=== PATIENT | female | born 1935 | race Caucasian/White ===

== ENCOUNTER 2018-05-13 00:48 | Inpatient (IN) | payer MEDICARE ==
[~2018-05-13] VITALS: Ht 160 cm; Wt 60.1 kg
[2018-05-13] MEDS ORDERED: METHYL SALICYLATE/MENTHOL TOPICAL OINTMENT 29GM TUBE. TP PRN (02:30)
[2018-05-13] MEDS ORDERED: MAGNESIUM HYDROXIDE 2,400 MG/30 ML ORAL.SUSP. PO PRN (02:30)
[2018-05-13] MEDS ORDERED: ACETAMINOPHEN 325 MG TABLET PO PRN (02:30)
[2018-05-13] MEDS ORDERED: MAG HYDROX/AL HYDROX/SIMETH 30 ML ORAL.SUSP PO PRN (02:30)
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
[2018-05-13 04:07] VITALS: BP 136/74
--- NOTE | 2018-05-13 05:03 | EKG ---
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
[2018-05-13 06:06] VITALS: BP 101/67
[2018-05-13 06:50] LABS: BASO % 1 % (0-3); EOS # 0.1 x10^3/uL (0.0-0.7); EOS % 2 % (0-3); HEMATOCRIT 40.7 % (36.0-47.0); HEMOGLOBIN 13.7 g/dL (12.0-15.5); LYMPH # 1.9 x10^3/uL (1.0-4.8); LYMPH % 36 % (24-48); MEAN CORPUSCULAR HEMOGLOBIN 30 pg (25-35); MEAN CORPUSCULAR HGB CONC 34 g/dL (31-37); MEAN CORPUSCULAR VOLUME 88 fL (79-100); MONO # 0.4 x10^3/uL (0.0-1.1); MONO % 7 % (0-9); NEUT # 2.8 x10^3uL (1.8-7.7); NEUT % 54 % (31-73); PLATELET COUNT 202 x10^3/uL (140-400); RED BLOOD COUNT 4.61 x10^6/uL (3.50-5.40); WHITE BLOOD COUNT 5.2 x10^3/uL (4.0-11.0)
[2018-05-13 07:10] LABS: ALBUMIN/GLOBULIN RATIO 0.9 (1.0-1.7); CALCIUM 9.3 mg/dL (8.5-10.1); CREATININE 0.8 mg/dL (0.6-1.0); GFR 68.5; MAGNESIUM 1.9 mg/dL (1.8-2.4); POTASSIUM 3.8 mmol/L (3.5-5.1); TOTAL BILIRUBIN 0.7 mg/dL (0.2-1.0); TOTAL PROTEIN 6.3 g/dL (6.4-8.2)
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
[2018-05-13] MEDS: LORazepam 2 MG/ML VIAL IM SCH ×2 (08:18→09:00)
[2018-05-13] MEDS: HALOPERIDOL LACT 5 MG/ML VIAL. IM SCH ×2 (08:19→09:00)
--- NOTE | 2018-05-13 09:20 | NUR ---
Behavior Intervention Response and Plan: BIRP Note: Behavior: Assumed Care of patient, patient located in Hallway at shift change. Patient exhibited the following behavior Compulsive, Demanding, Combative. Brief assessment on rounds of vital signs, medication needs, lab studies, and pain. Treatment plan problems 1 & 2. Intervention: Patient assessed and the following interventions initiated safety checks 15 Minute Checks Cognitive Assessment , Head to toe Assessment , Medications. Response: After interactions and interventions patient responded in the following manner, Calm , Compulsive ,Drowsy. Continue to assess behaviors and condition will continue to monitor throughout the shift as needed. Patient educated on ADL's, and hand hygiene. Plan: Continue to monitor Master Treatment Plan for patient's progress toward short term goals of Decreased Agitation, Decreased Aggression, custodial goals to return to previous living setting vs placement. Continue to assess patient for changes in above assessment. Monitor for medication needs, pain, and safety concerns. Hourly rounding performed to ensure safe environment.
[2018-05-13 13:22] LABS: THYROID STIM HORMONE (TSH) 1.724 uIU/mL (0.358-3.740)
--- NOTE | 2018-05-13 13:37 | RAD ---
EXAM: Head CT without contrast. HISTORY: Altered mental status. TECHNIQUE: Computed tomographic images of the head were obtained without contrast. *One or more of the following individualized dose reduction techniques were utilized for this examination: 1. Automated exposure control. 2. Adjustment of the mA and/or kV according to patient size. 3. Use of iterative reconstruction technique. COMPARISON: None. FINDINGS: There is no acute or subacute extra-axial or intraparenchymal hemorrhage. There is no mass effect or midline shift. There is no hydrocephalus. There are areas of decreased attenuation within the cerebral white matter, nonspecific and likely related to chronic small vessel disease. There is cerebral atrophy. The visualized portions of the orbits, paranasal sinuses and mastoid air cells are unremarkable. No suspicious calvarial lesion is seen. IMPRESSION: 1. No acute intracranial finding. Note is made that MRI is more sensitive for acute infarction. 2. Decreased attenuation within the cerebral white matter, likely due to chronic small vessel disease. 3. Cerebral volume loss. Electronically signed by: Rolanda Burgos MD (05/13/2018 1:33 PM) [id number]
[2018-05-13 16:12] VITALS: BP 103/65
[2018-05-13] MEDS ORDERED: CHOLECALCIFEROL (VITAMIN D3) 50,000 UNIT CAPSULE PO SCH (18:30)
[2018-05-13] MEDS: CYANOCOBALAMIN (VITAMIN B-12) 1,000 MCG/ML VIAL IM SCH (18:39)
--- NOTE | 2018-05-13 19:00 | NUR ---
WEEKLY NOTE: Pt was extremely combative when admitted on the unit. Pt has received IM injections and has calmed afterwards. Pt has been on the unit before. SW will complete psychosocial assessment and contact the family. It was noted that pt family has found a place in [facility] in [place] for pt do discharge to once stable. SW will confirm this report.
[2018-05-13 19:11] LABS: THYROXINE 6.6 ug/dL (4.5-12.0)
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
[2018-05-13 21:12] LABS: HEMOGLOBIN A1C 5.4 % (4.8-5.6)
--- NOTE | 2018-05-13 23:40 | PDOC ---
Exam Note: Edgar Note: Please also refer to the separate dictated note~for this date of service dictated separately.~Patient seen individually. Discussed the patient with Nursing staff reviewed the chart.~Reviewed interim history and current functioning. Reviewed vital signs,~Labs/ Radiology~and current medications noted below. Continue current treatment with the changes noted in the dictated addendum note Assessment: Vital Signs: Vital Signs Date Time Temp Pulse Resp B/P (MAP) Pulse Ox O2 Delivery O2 Flow Rate FiO2 05/13/18 16:12 98.1 56 18 103/65 (78) 94 05/13/18 06:06 Room Air I&O Intake and Output 05/13/18 07:00 # Voids 1 Labs: Laboratory Tests Test 05/13/18 06:32 White Blood Count 5.2 x10^3/uL (4.0-11.0) Red Blood Count 4.61 x10^6/uL (3.50-5.40) Hemoglobin 13.7 g/dL (12.0-15.5) Hematocrit 40.7 % (36.0-47.0) Mean Corpuscular Volume 88 fL (79-100) Mean Corpuscular Hemoglobin 30 pg (25-35) Mean Corpuscular Hemoglobin Concent 34 g/dL (31-37) Red Cell Distribution Width 13.0 % (11.5-14.5) Platelet Count 202 x10^3/uL (140-400) Neutrophils (%) (Auto) 54 % (31-73) Lymphocytes (%) (Auto) 36 % (24-48) Monocytes (%) (Auto) 7 % (0-9) Eosinophils (%) (Auto) 2 % (0-3) Basophils (%) (Auto) 1 % (0-3) Neutrophils # (Auto) 2.8 x10^3uL (1.8-7.7) Lymphocytes # (Auto) 1.9 x10^3/uL (1.0-4.8) Monocytes # (Auto) 0.4 x10^3/uL (0.0-1.1) Eosinophils # (Auto) 0.1 x10^3/uL (0.0-0.7) Basophils # (Auto) 0.0 x10^3/uL (0.0-0.2) Sodium Level 140 mmol/L (136-145) Potassium Level 3.8 mmol/L (3.5-5.1) Chloride Level 107 mmol/L (98-107) Carbon Dioxide Level 25 mmol/L (21-32) Anion Gap 8 (6-14) Blood Urea Nitrogen 24 mg/dL (7-20) H Creatinine 0.8 mg/dL (0.6-1.0) Estimated GFR (Cockcroft-Gault) 68.5 BUN/Creatinine Ratio 30 (6-20) H Glucose Level 93 mg/dL (70-99) Hemoglobin A1c 5.4 % (4.8-5.6) Calcium Level 9.3 mg/dL (8.5-10.1) Magnesium Level 1.9 mg/dL (1.8-2.4) Iron Level 71 ug/dL (50-170) Total Iron Binding Capacity 284 ug/dL (250-450) Iron Saturation 25 % (15-34) Total Bilirubin 0.7 mg/dL (0.2-1.0) Aspartate Amino Transferase (AST) 13 U/L (15-37) L Alanine Aminotransferase (ALT) 15 U/L (14-59) Alkaline Phosphatase 89 U/L (46-116) Total Protein 6.3 g/dL (6.4-8.2) L Albumin 3.0 g/dL (3.4-5.0) L Albumin/Globulin Ratio 0.9 (1.0-1.7) L Triglycerides Level 91 mg/dL (0-150) Cholesterol Level 198 mg/dL (0-200) LDL Cholesterol, Calculated 135 mg/dL (0-100) H VLDL Cholesterol, Calculated 18 mg/dL (0-40) Non-HDL Cholesterol Calculated 153 mg/dL (0-129) H HDL Cholesterol 45 mg/dL (40-60) Cholesterol/HDL Ratio 4.0 Vitamin B12 Level 149 pg/mL (247-911) L 25-Hydroxy Vitamin D Total 11.8 ng/mL (30-100) L Thyroid Stimulating Hormone (TSH) 1.724 uIU/mL (0.358-3.740) Thyroxine (T4) 6.6 ug/dL (4.5-12.0) Total Triiodothyronine (TT3) 94 ng/dL (71-180) Treponema pallidum Antibody Nonreactive (Nonreactive) Current Medications: Meds: Current Medications Acetaminophen (Tylenol) 650 mg PRN Q6HRS PRN PO PAIN / TEMP; Start 05/13/18 at 02:30 Multi-Ingredient Ointment (Analgesic [place]) 1 vanesa PRN QID PRN TP MUSCLE PAIN; Start 05/13/18 at 02:30 Al Hydroxide/Mg Hydroxide (Mylanta Plus Xs) 15 ml PRN AFTMEALHC PRN PO DYSPEPSIA; Start 05/13/18 at 02:30 Magnesium Hydroxide (Milk Of Magnesia) 2,400 mg PRN QHS PRN PO CONSTIPATION; Start 05/13/18 at 02:30 Lorazepam (Ativan) 0.25 mg PRN Q6HRS PRN PO ANXIETY / AGITATION; Start at 02:45 Lorazepam (Ativan) 1 mg DAILY IM Last administered on 05/13/18at 08:18; Start 05/13/18 at 08:15 Haloperidol Lactate (Haldol) 5 mg DAILY IM Last administered on 05/13/18at 08: 19; Start 05/13/18 at 08:15 Cyanocobalamin (Vitamin B-12) 1,000 mcg DAILY IM Last administered on at 18:39; Start 05/13/18 at 18:00; Stop 05/17/18 at 17:59 Cyanocobalamin (Vitamin B-12) 1,000 mcg WEEKLY IM ; Start 05/20/18 at 09:00 Vitamin D (Vitamin D3) 50,000 unit WEEKLY PO ; Start 05/13/18 at 18:30; Stop 05/13/18 at 18:39; Status DC Vitamin D (Vitamin D3) 50,000 unit WEEKLY PO ; Start 05/14/18 at 09:00 I have reviewed the current psychotropics carefully including drug interactions. Risk benefit ratio favors no change other than as noted in my dictated progress note. Diagnosis: Problems: (1) Anxiety disorder (2) Impulse control disorder (3) Major neurocognitive disorder, due to vascular disease, with behavioral disturbance, mild (4) Mixed Alzheimer's and vascular dementia with behavior disturbances KHRIS RUFF MD May 13, 2018 23:40
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
[2018-05-14 06:25] VITALS: BP 104/72
[2018-05-14] MEDS: CHOLECALCIFEROL (VITAMIN D3) 50,000 UNIT CAPSULE PO SCH (08:13)
--- NOTE | 2018-05-14 08:30 | NUR ---
Behavior Intervention Response and Plan: BIRP Note: Behavior: Assumed Care of patient, patient located in at shift change. Patient exhibited the following behavior Wandering, Disorganized, Non Compliant with Meds. Brief assessment on rounds of vital signs, medication needs, lab studies, and pain. Treatment plan problems 1 & 2. Intervention: Patient assessed and the following interventions initiated safety checks 15 Minute Checks Cognitive Assessment , Head to toe Assessment , Medications. Response: After interactions and interventions patient responded in the following manner, Calm , Wandering ,Resistive. Continue to assess behaviors and condition will continue to monitor throughout the shift as needed. Patient educated on ADL's, and hand hygiene. Plan: Continue to monitor Master Treatment Plan for patient's progress toward short term goals of Medication Compliance, No harm To self/ others, assistant terminal manager goals to return to previous living setting vs placement. Continue to assess patient for changes in above assessment. Monitor for medication needs, pain, and safety concerns. Hourly rounding performed to ensure safe environment.
[2018-05-14] MEDS: HALOPERIDOL LACT 5 MG/ML VIAL. IM SCH (10:58)
[2018-05-14] MEDS: CYANOCOBALAMIN (VITAMIN B-12) 1,000 MCG/ML VIAL IM SCH (10:58)
[2018-05-14] MEDS: LORazepam 2 MG/ML VIAL IM SCH (11:13)
--- NOTE | 2018-05-14 11:15 | NUR ---
Patient was cooperative with IM medications but continued to refuse oral medications. Will continue to monitor.
--- NOTE | 2018-05-14 14:52 | NUR ---
Psychosocial Assessment Admit Date: 05/13/18 Psychiatrist: None in the community Medical Physician: Dr. Morgan in the community Assessment Informants: Jessica Rogers (daughter) Sex of Patient: Female Race: White Age: 82 Living Situation: [facility] since 07/2017 Plans For Return: Family would prefer Sue move to [facility] facility in [facility] and are in the process of inquiring there Legal status: Voluntary admission, POA in place Name of Legally Responsible Person: Jessica Sanford Contacts: Name: Jessica Sanford, daughter, Family Background and Relationships Marital status: . Spouse Warren Sanford, 20+ years ago in his sleep. Sue found him. They were for 45 years. Warren served in the . Marital (Cohabitation)/Sexual Orientation Issues: Heterosexual Family support And their Participation in therapy: Family is involved and will participate in treatment team on 05/10/18. 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 Her children are Ifrah, Jessica, Titus, and Eloy. She has six grandchildren, 7 greats, and 2 great greats. History of Legal Difficulties: None reported. Preferred Leisure Activities: Sue has enjoyed watching movies, bowling on a league with her spouse, sabianism involvement, and spending sil[place]ira in [place] for 18 years. Spiritual/Jehovah'S Witness Involvement: Religion Science, high importance, was raised in the sabianism and continues to practice. Sue reports she reads the Bible and the health and science book. She attends sabianism on Wednesdays and Sundays. Service: Sue was not in the service. Her spouse was in the and they spent some time in [place] during his years of service. Financial Situation: Adequate funds for the next 30 days. Resources: Receives social security and has assets to cover the cost of her care. Financial Problems/Needs: none reported. Constitution Party Responsible for Handling Patient's Finances: Jessica Mayeran Historical Data Childhood History: Sue was born and raised in [facility]. She was an only child. She recalls being a "Daddy's girl" and felt unwanted by her mother. Her father worked as a builder. No substance abuse or mental illness reported in the family. Cultural/Spiritual History Factors that may impact treatment: Religion Science emilia History of Sexual/Physical Abuse of Neglect: None reported. History of Substance Abuse: None in past 12 months, none reported. Psychiatric History: Sue saw a grief counselor after her spouse . Otherwise, no previous in patient treatments. Presenting Problems Presenting Problems/Criteria for admission: Agitation, pacing, restless, aggressive towards others, threw her purse at the wall, threw herself on the ground, and expressions of wanting to . Patient's Current Intrinsic Strengths: Supportive family, verbal, adequate finances for care needs. Patient's Current Intrinsic Weaknesses: Memory impairment, behavioral issues Social Work Treatment Plan Identified Problems 1.) Aggression 2.) Agitation 3.) Expressions of wanting to Goals for Treatment: Decreased aggressiveness, agitation, and depression. Stabilization of mood. Family Goals for Treatment: As above Social work Intervention: Group therapy per week:2-5x To increase positive, calm feelings. To Increase Socialization. To Teach and Practice Effective coping skills in a social setting. Individual Therapy Per Week: As needed. Using validation to increase calm and positive feelings. To encourage self-expression. To work on grief/loss and adjustment issues. To teach and practice effective coping skills. To educate about diagnoses, team recommendations etc.. Family Support and Education: As needed. Support family grief/adjustment process. Educate about Psychiatric/Behavioral problems and treatment recommendations. Patient's Educational Needs to be addressed in Treatment: Diagnosis, Treatment plan, Medication and Discharge Planning. Initial Discharge Plan: To return to [facility] or if arrangements can be made in time to move to [facility]. Plan for communication of Psychiatric Follow up and Continuing Care Instructions to family and Care Givers: Written and verbal communication. Conclusions and Recommendations: 1:1 with Sue to support related to recent admit and to obtain social history. Sue was confused to time and place. However, she was able to recall many events from her past sharing her social history. Family confirmed the information that Sue shared as accurate. Sue's daughter Jessica will be involved by phone in treatment team on 05/20/18. Addendum: 05/18/18 at 1535 by KAYLYN VELEZ HEBERT reviewed and approves assessment.
[2018-05-14 15:56] VITALS: BP 132/79
[2018-05-14 17:02] LABS: BACTERIA,URINE 0 /HPF (0-FEW); BILIRUBIN,URINE NEG (NEG); CLARITY,URINE CLEAR; COLOR,URINE YELLOW; GLUCOSE,URINE NEG (NEG); NITRITE,URINE NEG (NEG); RBC,URINE 0 /HPF (0-2); SQUAMOUS EPITHELIAL CELL,UR FEW /LPF; UROBILINOGEN,URINE 0.2 mg/dL (0.2 mg/dL)
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
--- NOTE | 2018-05-14 22:15 | NUR ---
Behavior Intervention Response and Plan: BIRP Note: Behavior: Assumed Care of patient, patient located in Day Room at shift change. Patient exhibited the following behavior Calm, Cooperative, Compliant. Brief assessment on rounds of vital signs, medication needs, lab studies, and pain. Treatment plan problems . Intervention: Patient assessed and the following interventions initiated safety checks 15 Minute Checks Personal Alarm in place , Cognitive Assessment , Head to toe Assessment. Response: After interactions and interventions patient responded in the following manner, Calm , Compliant ,Cooperative. Continue to assess behaviors and condition will continue to monitor throughout the shift as needed. Patient educated on ADL's, and hand hygiene. Plan: Continue to monitor Master Treatment Plan for patient's progress toward short term goals of Decreased Agitation, Medication Compliance, intermediate frame tender goals to return to previous living setting vs placement. Continue to assess patient for changes in above assessment. Monitor for medication needs, pain, and safety concerns. Hourly rounding performed to ensure safe environment.
--- NOTE | 2018-05-14 23:23 | PDOC ---
Exam Note: Edgar Note: Please also refer to the separate dictated note~for this date of service dictated separately.~Patient seen individually. Discussed the patient with Nursing staff reviewed the chart.~Reviewed interim history and current functioning. Reviewed vital signs,~Labs/ Radiology~and current medications noted below. Continue current treatment with the changes noted in the dictated addendum note Assessment: Vital Signs: Vital Signs Date Time Temp Pulse Resp B/P (MAP) Pulse Ox O2 Delivery O2 Flow Rate FiO2 05/14/18 15:56 97.9 62 16 132/79 (96) 96 Room Air I&O Intake and Output 05/14/18 07:00 Intake Total 720 ml Balance 720 ml Intake Oral 720 ml Labs: Laboratory Tests Test 05/14/18 16:42 Urine Collection Type Unknown Urine Color Yellow Urine Clarity Clear Urine pH 5.0 Urine Specific [place] 1.025 Urine Protein Neg (NEG-TRACE) Urine Glucose (UA) Neg mg/dL (NEG) Urine Ketones (Stick) Neg mg/dL (NEG) Urine Blood Neg (NEG) Urine Nitrite Neg (NEG) Urine Bilirubin Neg (NEG) Urine Urobilinogen Dipstick 0.2 mg/dL (0.2 mg/dL) Urine Leukocyte Esterase Trace (NEG) Urine RBC 0 /HPF (0-2) Urine WBC 5-10 /HPF (0-4) Urine Squamous Epithelial Cells Few /LPF Urine Bacteria 0 /HPF (0-FEW) Urine Mucus Slight /LPF Current Medications: Meds: Current Medications Acetaminophen (Tylenol) 650 mg PRN Q6HRS PRN PO PAIN / TEMP; Start 05/13/18 at 02:30 Multi-Ingredient Ointment (Analgesic [place]) 1 vanesa PRN QID PRN TP MUSCLE PAIN; Start 05/13/18 at 02:30 Al Hydroxide/Mg Hydroxide (Mylanta Plus Xs) 15 ml PRN AFTMEALHC PRN PO DYSPEPSIA; Start 05/13/18 at 02:30 Magnesium Hydroxide (Milk Of Magnesia) 2,400 mg PRN QHS PRN PO CONSTIPATION; Start 05/13/18 at 02:30 Lorazepam (Ativan) 0.25 mg PRN Q6HRS PRN PO ANXIETY / AGITATION; Start at 02:45 Lorazepam (Ativan) 1 mg DAILY IM Last administered on 05/14/18at 11:13; Start 05/13/18 at 08:15 Haloperidol Lactate (Haldol) 5 mg DAILY IM Last administered on 05/14/18at 10: 58; Start 05/13/18 at 08:15 Cyanocobalamin (Vitamin B-12) 1,000 mcg DAILY IM Last administered on at 10:58; Start 05/13/18 at 18:00; Stop 05/17/18 at 17:59 Cyanocobalamin (Vitamin B-12) 1,000 mcg WEEKLY IM ; Start 05/20/18 at 09:00 Vitamin D (Vitamin D3) 50,000 unit WEEKLY PO ; Start 05/13/18 at 18:30; Stop 05/13/18 at 18:39; Status DC Vitamin D (Vitamin D3) 50,000 unit WEEKLY PO Last administered on 05/14/18at 08 :13; Start 05/14/18 at 09:00 Quetiapine Fumarate (SEROquel) 25 mg DAILY PO ; Start 05/15/18 at 09:00 I have reviewed the current psychotropics carefully including drug interactions. Risk benefit ratio favors no change other than as noted in my dictated progress note. 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
[2018-05-15 06:35] VITALS: BP 137/76
--- NOTE | 2018-05-15 08:40 | NUR ---
Behavior Intervention Response and Plan: BIRP Note: Behavior: Assumed Care of patient, patient located in at shift change. Patient exhibited the following behavior Wandering, Disorganized, Non Compliant with Meds. Brief assessment on rounds of vital signs, medication needs, lab studies, and pain. Treatment plan problems 1 & 2. Intervention: Patient assessed and the following interventions initiated safety checks 15 Minute Checks Cognitive Assessment , Head to toe Assessment , Medications. Response: After interactions and interventions patient responded in the following manner, Calm , Wandering ,Resistive. Continue to assess behaviors and condition will continue to monitor throughout the shift as needed. Patient educated on ADL's, and hand hygiene. 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 Continue to assess patient for changes in above assessment. Monitor for medication needs, pain, and safety concerns. Hourly rounding performed to ensure safe environment.
[2018-05-15] MEDS: QUEtiapine 25 MG TABLET. PO SCH (12:04)
[2018-05-15] MEDS: HALOPERIDOL LACT 5 MG/ML VIAL. IM SCH (13:52)
[2018-05-15] MEDS: CYANOCOBALAMIN (VITAMIN B-12) 1,000 MCG/ML VIAL IM SCH (13:52)
[2018-05-15] MEDS: LORazepam 2 MG/ML VIAL IM SCH (13:53)
[2018-05-15 16:05] VITALS: BP 157/86
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
--- NOTE | 2018-05-16 01:13 | NUR ---
Pt was resting in her bed at shift change. Pt does not receive any HS medications and was compliant with her assessment. Pt is continent of urine and woke up in the middle of the night to use the toilet. Pt was very pleasant, even laughed with this RN during that time. No adverse behaviors noted on this shift at this time.
[2018-05-16 06:25] VITALS: BP 124/79
[2018-05-16] MEDS: CYANOCOBALAMIN (VITAMIN B-12) 1,000 MCG/ML VIAL IM SCH (09:00)
[2018-05-16] MEDS: QUEtiapine 25 MG TABLET. PO SCH (09:17)
--- NOTE | 2018-05-16 10:42 | NUR ---
Pt is calm, cooperative, compliant and confused. No hallucinations or delusions. She wanders, has had no agitation or aggression thus far. Medication crushed in chocolate ice cream.
[2018-05-16 16:39] VITALS: BP 114/65
--- NOTE | 2018-05-17 01:11 | NUR ---
Pt laying down in bed in her room at shift change. Pt confused, stating that she thought she was at home. Pt does not receive any HS medications. Pt has continued to stay in bed the rest of the evening.
[2018-05-17 06:19] VITALS: BP 118/69
[2018-05-17] MEDS: CYANOCOBALAMIN (VITAMIN B-12) 1,000 MCG/ML VIAL IM SCH (09:00)
[2018-05-17] MEDS: QUEtiapine 25 MG TABLET. PO SCH (09:23)
--- NOTE | 2018-05-17 09:48 | PN ---
DATE: 05/14/2018 PSYCHIATRIC PROGRESS NOTE This is a late entry for date of service 05/14/2018 and covers elements not covered in my initial note of 05/14/2018. SUBJECTIVE: I met with the patient in the morning. Per nursing report, the patient slept 6 hours previous night. At around 7:00 p.m. previous evening, she was agitated, confused, intermittently psychotic, but redirectable. She refused her vitamin D supplements. REVIEW OF SYSTEMS: No CV, , eye, ENT or pulmonary system symptoms on review. Reliability poor due to her dementia, but she was otherwise pleasant, smiling as I met with her. MENTAL STATUS EXAM: Oriented to herself. Insight, judgment, recent and remote memory, attention, concentration, fund of knowledge poor, consistent with her diagnoses. IMPRESSION: Major neurocognitive disorder, Alzheimer, vascular with delusion, depression, behavioral disturbance; anxiety disorder, unspecified; impulse control disorder, unspecified. PLAN: Start Seroquel 25 mg in the morning. Continue Haldol and Ativan IM daily, but as she responds to the Seroquel, we will stop the IMs. Dr. Delgado will resume care of the patient starting 05/15/2018. MAN Padmini RUFF MD DR: KATARZYNA/bibiana JOB#: [id number] / [id number]
--- NOTE | 2018-05-17 10:05 | NUR ---
ACTIVITY THERAPY ASSESSMENT Completed based on observation and interview. Pt. was agreeable to speak with YARD LABORER. She was confused about her roommate but was pleasant and able to be redirected to answer questions for assessment. She was able to quickly recall things she likes to do in her free time. She stated she likes to help people, walk, get involved with [employer] and healings at her [employer] every Thursday night. She struggled to recall the name of her pres[employer]ian quickly but with time was able to state it was [employer]. She was unable to explain exactly where she was and why she was here. She enjoyed talking one on one with [facility] and repeated a story about her dog, Hudson. She talked about having four children and a who has passed. She stated that when she is stressed/ anxious or overwhelmed, she will watch tv or nap. She stated she likes all sorts of music and used to play the piano. Pt. usually keeps to herself, walking the unit. Initial goal aimed to increase socialization and engagement: Pt. will participate in at least three individual or group sessions, moderately, before discharge. Addendum: 06/03/18 at 1137 by MARTINA NIXON ACT Goal changed 06/03/2018: Pt. will participate at least moderately in three groups per week
--- NOTE | 2018-05-17 11:58 | NUR ---
Pt is calm, cooperative, confused and wanders. She was med compliant with her medication crushed in chocolate ice cream. No agitation or aggression noted. No hallucinations or delusions noted.
[2018-05-17 16:31] VITALS: BP 135/82
[2018-05-17] MEDS ORDERED: traZODone 50 MG TABLET. PO PRN (18:00)
--- NOTE | 2018-05-17 20:00 | NUR ---
Behavior Intervention Response and Plan: BIRP Note: Behavior: Assumed Care of patient, patient located in Hallway at shift change. Patient exhibited the following behavior Restless, Disorganized, Resistive. Brief assessment on rounds of vital signs, medication needs, lab studies, and pain. Treatment plan problems . Intervention: Patient assessed and the following interventions initiated safety checks 15 Minute Checks Cognitive Assessment , Head to toe Assessment , Medications. Response: After interactions and interventions patient responded in the following manner, Wandering , Disorganized ,Resistive. Continue to assess behaviors and condition will continue to monitor throughout the shift as needed. Patient educated on ADL's, and hand hygiene. Plan: Continue to monitor Master Treatment Plan for patient's progress toward short term goals of Decreased Agitation, Medication Compliance, manager terminal goals to return to previous living setting vs placement. Continue to assess patient for changes in above assessment. Monitor for medication needs, pain, and safety concerns. Hourly rounding performed to ensure safe environment.
[2018-05-17] MEDS: traZODone 50 MG TABLET. PO SCH ×2 (20:27→21:00)
--- NOTE | 2018-05-17 23:23 | PDOC ---
Exam Note: Edgar Note: Please also refer to the separate dictated note~for this date of service dictated separately.~Patient seen individually. Discussed the patient with Nursing staff reviewed the chart.~Reviewed interim history and current functioning. Reviewed vital signs,~Labs/ Radiology~and current medications noted below. Continue current treatment with the changes noted in the dictated addendum note Assessment: Vital Signs: Vital Signs Date Time Temp Pulse Resp B/P (MAP) Pulse Ox O2 Delivery O2 Flow Rate FiO2 05/17/18 16:31 97.7 74 18 135/82 (99) 98 Room Air I&O Intake and Output 05/17/18 07:00 Intake Total 360 ml Balance 360 ml Intake Oral 360 ml # Voids 1 Current Medications: Meds: Current Medications Acetaminophen (Tylenol) 650 mg PRN Q6HRS PRN PO PAIN / TEMP; Start 05/13/18 at 02:30 Multi-Ingredient Ointment (Analgesic [place]) 1 vanesa PRN QID PRN TP MUSCLE PAIN; Start 05/13/18 at 02:30 Al Hydroxide/Mg Hydroxide (Mylanta Plus Xs) 15 ml PRN AFTMEALHC PRN PO DYSPEPSIA; Start 05/13/18 at 02:30 Magnesium Hydroxide (Milk Of Magnesia) 2,400 mg PRN QHS PRN PO CONSTIPATION; Start 05/13/18 at 02:30 Lorazepam (Ativan) 0.25 mg PRN Q6HRS PRN PO ANXIETY / AGITATION; Start at 02:45 Lorazepam (Ativan) 1 mg DAILY IM Last administered on 05/15/18at 13:53; Start 05/13/18 at 08:15 Haloperidol Lactate (Haldol) 5 mg DAILY IM Last administered on 05/15/18at 13: 52; Start 05/13/18 at 08:15 Cyanocobalamin (Vitamin B-12) 1,000 mcg DAILY IM Last administered on at 13:52; Start 05/13/18 at 18:00; Stop 05/17/18 at 17:59; Status DC Cyanocobalamin (Vitamin B-12) 1,000 mcg WEEKLY IM ; Start 05/20/18 at 09:00 Vitamin D (Vitamin D3) 50,000 unit WEEKLY PO ; Start 05/13/18 at 18:30; Stop 05/13/18 at 18:39; Status DC Vitamin D (Vitamin D3) 50,000 unit WEEKLY PO Last administered on 05/14/18at 08 :13; Start 05/14/18 at 09:00 Quetiapine Fumarate (SEROquel) 25 mg DAILY PO Last administered on 05/17/18at 09:23; Start 05/15/18 at 09:00 Trazodone HCl (Desyrel) 25 mg QHS PO Last administered on 05/17/18at 20:27; Start 05/17/18 at 21:00 Trazodone HCl (Desyrel) 25 mg PRN QHS PRN PO INSOMNIA; Start 05/17/18 at 18:00 I have reviewed the current psychotropics carefully including drug interactions. Risk benefit ratio favors no change other than as noted in my dictated progress note. 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
[2018-05-18 05:40] VITALS: BP 154/85
[2018-05-18] MEDS: QUEtiapine 25 MG TABLET. PO SCH (07:50)
--- NOTE | 2018-05-18 11:09 | NUR ---
Behavior Intervention Response and Plan: BIRP Note: Behavior: Assumed Care of patient, patient located in Dining Room at shift change. Patient exhibited the following behavior Wandering, Disorganized, Non Compliant with Meds. Brief assessment on rounds of vital signs, medication needs, lab studies, and pain. Treatment plan problems 1 & 2. Intervention: Patient assessed and the following interventions initiated safety checks 15 Minute Checks Cognitive Assessment , Head to toe Assessment , Medications. Response: After interactions and interventions patient responded in the following manner, Calm , Wandering ,Resistive. Continue to assess behaviors and condition will continue to monitor throughout the shift as needed. Patient educated on ADL's, and hand hygiene. 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 Continue to assess patient for changes in above assessment. Monitor for medication needs, pain, and safety concerns. Hourly rounding performed to ensure safe environment.
--- NOTE | 2018-05-18 13:55 | NUR ---
SW was told by one of the nursing staff that pt had been talking about speaking to a tree killer. 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 SW inquired about this with the Pastoral office and they will be able to meet with pt tomorrow.
[2018-05-18] MEDS: HALOPERIDOL LACT 5 MG/ML VIAL. IM SCH (15:07)
[2018-05-18] MEDS: LORazepam 2 MG/ML VIAL IM SCH (15:11)
[2018-05-18 16:11] VITALS: BP 137/80
[2018-05-18] MEDS ORDERED: MIRT15TA PO (17:20)
[2018-05-18] MEDS: traZODone 50 MG TABLET. PO SCH (19:24)
--- NOTE | 2018-05-19 01:07 | NUR ---
Pt wandering and anxious this evening, repeatedly asking the same questions to staff. Restless and intrusive. Refused whole HS medication. Hypoactive bowel sounds. HS Trazodone crushed and mixed with MOM. After much coaxing, pt consumed MOM.
[2018-05-19 06:08] VITALS: BP 140/60
[2018-05-19] MEDS: QUEtiapine 25 MG TABLET. PO SCH (08:13)
--- NOTE | 2018-05-19 11:38 | NUR ---
Pt has been calm and compliant for this shift. Pt took all of medications this morning and came to the dining room for breakfast. Pt ate most of breakfast. Pt has been wandering the halls and sleeping in other pt's beds. Currently, the pt is in the hallway talking to the financial accounting analyst.
--- NOTE | 2018-05-19 15:17 | NUR ---
1:1 with Sue this afternoon to socialize. Sue was alert and appeared to enjoy reminiscing about her childhood, her childhood friend [place], and memories of her father. At times, she would make reference to her parents being alive and talk as if she were still a child. Sue was calm and without s/s of distress or agitation. Walked with Sue to the day room in hopes that she would participate in afternoon recreational therapy group activity.
[2018-05-19 16:13] VITALS: BP 149/79
--- NOTE | 2018-05-19 19:22 | PN ---
DATE: 05/17/2018 This is a late entry 05/17/2018 covers elements not covered in my initial note. SUBJECTIVE: I met with the patient at some length in her room. The patient had a good night and a good day. I reviewed the information with Dr. Acevedo who had covered for me over the weekend. She slept 7 hours previous evening. Remains confused and agitated at times, less so than before. REVIEW OF SYSTEMS: No CV, , pulmonary, eye, ENT system symptoms on review. Reliability poor. MENTAL STATUS EXAM: Oriented to herself. Insight, judgment, recent and remote memory, attention, concentration, fund of knowledge poor, consistent with her diagnoses. IMPRESSION: Major neurocognitive disorder, Alzheimer, vascular with delusion, depression, behavioral disturbance; anxiety disorder, unspecified; impulse control disorder, unspecified. PLAN: Continue psychotropics from initial note including Seroquel 25 mg daily, trazodone 25 mg at bedtime and p.r.n. and we will stop the IM Haldol and Ativan schedule. Adjust further as clinically indicated. Urine culture mixed cristal. MAN Padmini RUFF MD DR: KATARZYNA/bibiana JOB#: [id number] / [id number]
[2018-05-19] MEDS: traZODone 50 MG TABLET. PO SCH (20:50)
--- NOTE | 2018-05-19 21:22 | PDOC ---
Exam Note: Edgar Note: Late entry for DOS 05/18/2018. Please also refer to the separate dictated note~ for this date of service dictated separately.~Patient seen individually. Discussed the patient with Nursing staff reviewed the chart.~Reviewed interim history and current functioning. Reviewed vital signs,~Labs/ Radiology~and current medications noted below. Continue current treatment with the changes noted in the dictated addendum note Assessment: Vital Signs: VS - Last 72 Hours, by Label Date Time Temp Pulse Resp B/P (MAP) Pulse Ox O2 Delivery O2 Flow Rate FiO2 05/19/18 16:13 98.2 64 16 149/79 (102) 97 05/19/18 06:08 97.5 68 18 140/60 (86) 94 05/18/18 16:11 98.4 76 20 137/80 (99) 98 Room Air 05/18/18 05:40 99.0 70 18 154/85 (108) 97 05/17/18 16:31 97.7 74 18 135/82 (99) 98 Room Air 05/17/18 06:19 98.1 66 16 118/69 (85) 100 Room Air Vital Signs Date Time Temp Pulse Resp B/P (MAP) Pulse Ox O2 Delivery O2 Flow Rate FiO2 05/19/18 16:13 98.2 64 16 149/79 (102) 97 05/18/18 16:11 Room Air I&O Intake and Output 05/19/18 07:00 Intake Total 600 ml Balance 600 ml Intake Oral 600 ml # Bowel Movements 1 Current Medications: Meds: Current Medications Acetaminophen (Tylenol) 650 mg PRN Q6HRS PRN PO PAIN / TEMP; Start 05/13/18 at 02:30 Multi-Ingredient Ointment (Analgesic [place]) 1 vanesa PRN QID PRN TP MUSCLE PAIN; Start 05/13/18 at 02:30 Al Hydroxide/Mg Hydroxide (Mylanta Plus Xs) 15 ml PRN AFTMEALHC PRN PO DYSPEPSIA; Start 05/13/18 at 02:30 Magnesium Hydroxide (Milk Of Magnesia) 2,400 mg PRN QHS PRN PO CONSTIPATION Last administered on 05/18/18at 20:12; Start 05/13/18 at 02:30 Lorazepam (Ativan) 0.25 mg PRN Q6HRS PRN PO ANXIETY / AGITATION; Start at 02:45 Lorazepam (Ativan) 1 mg DAILY IM Last administered on 05/18/18at 15:11; Start 05/13/18 at 08:15; Stop 05/18/18 at 17:21; Status DC Haloperidol Lactate (Haldol) 5 mg DAILY IM Last administered on 05/18/18at 15: 07; Start 05/13/18 at 08:15; Stop 05/18/18 at 17:21; Status DC Cyanocobalamin (Vitamin B-12) 1,000 mcg DAILY IM Last administered on at 13:52; Start 05/13/18 at 18:00; Stop 05/17/18 at 17:59; Status DC Cyanocobalamin (Vitamin B-12) 1,000 mcg WEEKLY IM ; Start 05/20/18 at 09:00 Vitamin D (Vitamin D3) 50,000 unit WEEKLY PO ; Start 05/13/18 at 18:30; Stop 05/13/18 at 18:39; Status DC Vitamin D (Vitamin D3) 50,000 unit WEEKLY PO Last administered on 05/14/18at 08 :13; Start 05/14/18 at 09:00 Quetiapine Fumarate (SEROquel) 25 mg DAILY PO Last administered on 05/18/18at 07:50; Start 05/15/18 at 09:00; Stop 05/18/18 at 17:21; Status DC Trazodone HCl (Desyrel) 25 mg QHS PO Last administered on 05/19/18at 20:50; Start 05/17/18 at 21:00 Trazodone HCl (Desyrel) 25 mg PRN QHS PRN PO INSOMNIA; Start 05/17/18 at 18:00 Quetiapine Fumarate (SEROquel) 37.5 mg DAILY PO Last administered on at 08:13; Start 05/19/18 at 09:00 Active Scripts Active Reported Remeron (Mirtazapine) 15 Mg Tablet 0.5 Tab PO QHS I have reviewed the current psychotropics carefully including drug interactions. Risk benefit ratio favors no change other than as noted in my dictated progress note. 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
--- NOTE | 2018-05-19 23:30 | PDOC ---
Exam Note: Edgar Note: Please also refer to the separate dictated note~for this date of service dictated separately.~Patient seen individually. Discussed the patient with Nursing staff reviewed the chart.~Reviewed interim history and current functioning. Reviewed vital signs,~Labs/ Radiology~and current medications noted below. Continue current treatment with the changes noted in the dictated addendum note Assessment: Vital Signs: Vital Signs Date Time Temp Pulse Resp B/P (MAP) Pulse Ox O2 Delivery O2 Flow Rate FiO2 05/19/18 16:13 98.2 64 16 149/79 (102) 97 05/18/18 16:11 Room Air I&O Intake and Output 05/19/18 07:00 Intake Total 600 ml Balance 600 ml Intake Oral 600 ml # Bowel Movements 1 Current Medications: Meds: Current Medications Acetaminophen (Tylenol) 650 mg PRN Q6HRS PRN PO PAIN / TEMP; Start 05/13/18 at 02:30 Multi-Ingredient Ointment (Analgesic [place]) 1 vanesa PRN QID PRN TP MUSCLE PAIN; Start 05/13/18 at 02:30 Al Hydroxide/Mg Hydroxide (Mylanta Plus Xs) 15 ml PRN AFTMEALHC PRN PO DYSPEPSIA; Start 05/13/18 at 02:30 Magnesium Hydroxide (Milk Of Magnesia) 2,400 mg PRN QHS PRN PO CONSTIPATION Last administered on 05/18/18at 20:12; Start 05/13/18 at 02:30 Lorazepam (Ativan) 0.25 mg PRN Q6HRS PRN PO ANXIETY / AGITATION; Start at 02:45 Lorazepam (Ativan) 1 mg DAILY IM Last administered on 05/18/18at 15:11; Start 05/13/18 at 08:15; Stop 05/18/18 at 17:21; Status DC Haloperidol Lactate (Haldol) 5 mg DAILY IM Last administered on 05/18/18at 15: 07; Start 05/13/18 at 08:15; Stop 05/18/18 at 17:21; Status DC Cyanocobalamin (Vitamin B-12) 1,000 mcg DAILY IM Last administered on at 13:52; Start 05/13/18 at 18:00; Stop 05/17/18 at 17:59; Status DC Cyanocobalamin (Vitamin B-12) 1,000 mcg WEEKLY IM ; Start 05/20/18 at 09:00 Vitamin D (Vitamin D3) 50,000 unit WEEKLY PO ; Start 05/13/18 at 18:30; Stop 05/13/18 at 18:39; Status DC Vitamin D (Vitamin D3) 50,000 unit WEEKLY PO Last administered on 05/14/18at 08 :13; Start 05/14/18 at 09:00 Quetiapine Fumarate (SEROquel) 25 mg DAILY PO Last administered on 05/18/18at 07:50; Start 05/15/18 at 09:00; Stop 05/18/18 at 17:21; Status DC Trazodone HCl (Desyrel) 25 mg QHS PO Last administered on 05/19/18at 20:50; Start 05/17/18 at 21:00 Trazodone HCl (Desyrel) 25 mg PRN QHS PRN PO INSOMNIA; Start 05/17/18 at 18:00 Quetiapine Fumarate (SEROquel) 37.5 mg DAILY PO Last administered on at 08:13; Start 05/19/18 at 09:00 Active Scripts Active Reported Remeron (Mirtazapine) 15 Mg Tablet 0.5 Tab PO QHS I have reviewed the current psychotropics carefully including drug interactions. Risk benefit ratio favors no change other than as noted in my dictated progress note. Diagnosis: Problems: (1) Anxiety disorder (2) Impulse control disorder (3) Major neurocognitive disorder, due to vascular disease, with behavioral disturbance, mild (4) Mixed Alzheimer's and vascular dementia with behavior disturbances KHRIS RUFF MD May 19, 2018 23:30
--- NOTE | 2018-05-20 00:03 | PN ---
DATE: 05/18/2018 PSYCHIATRIC PROGRESS NOTE This late entry 05/18/2018 covers elements not covered in my initial note. SUBJECTIVE: I met with the patient in the evening. The patient has done little better. She remains confused, anxious. She did get the IM Haldol and Ativan today, but plan is to gradually discontinue it. She slept just one hour last night and we will add Remeron 7.5 mg p.o. at bedtime to help with this. REVIEW OF SYSTEMS: No CV, , eye, ENT or pulmonary system symptoms on review. Reliability poor. MENTAL STATUS EXAM: Oriented to herself. Insight, judgment, recent and remote memory, attention, concentration, fund of knowledge poor, consistent with her diagnosis mentioned in my initial note. IMPRESSION: Major neurocognitive disorder, Alzheimer, vascular with delusion, depression, behavioral disturbance; anxiety disorder, unspecified; impulse control disorder, unspecified. Rest unchanged. PLAN: Start Remeron 7.5 at bedtime, increase Seroquel from 25 mg daily to 37.5 mg daily. Continue trazodone 25 at bedtime plus p.r.n. and we will stop the IM Haldol, Ativan in a day or so. KHRIS RUFF MD DR: KATARZYNA/bibiana JOB#: [id number] / [id number]
--- NOTE | 2018-05-20 00:03 | NUR ---
Pt wandering unit at shift change. Compliant with hidden HS medications. Pt restless, wandering from room to room and laying down/ getting up from her bed multiple times this evening.
[2018-05-20 06:21] VITALS: BP 125/74
[2018-05-20 07:07] LABS: BASO % 1 % (0-3); EOS # 0.1 x10^3/uL (0.0-0.7); EOS % 2 % (0-3); HEMATOCRIT 41.3 % (36.0-47.0); HEMOGLOBIN 13.9 g/dL (12.0-15.5); LYMPH # 1.7 x10^3/uL (1.0-4.8); LYMPH % 36 % (24-48); MEAN CORPUSCULAR HEMOGLOBIN 30 pg (25-35); MEAN CORPUSCULAR HGB CONC 34 g/dL (31-37); MEAN CORPUSCULAR VOLUME 89 fL (79-100); MONO # 0.4 x10^3/uL (0.0-1.1); MONO % 9 % (0-9); NEUT # 2.5 x10^3uL (1.8-7.7); NEUT % 52 % (31-73); PLATELET COUNT 184 x10^3/uL (140-400); RED BLOOD COUNT 4.67 x10^6/uL (3.50-5.40); RED CELL DISTRIBUTION WIDTH 13.1 % (11.5-14.5); WHITE BLOOD COUNT 4.8 x10^3/uL (4.0-11.0)
[2018-05-20 07:14] LABS: ALBUMIN/GLOBULIN RATIO 0.9 (1.0-1.7); CALCIUM 9.3 mg/dL (8.5-10.1); CREATININE 0.8 mg/dL (0.6-1.0); GFR 68.5; TOTAL BILIRUBIN 0.6 mg/dL (0.2-1.0); TOTAL PROTEIN 6.3 g/dL (6.4-8.2)
[2018-05-20] MEDS: QUEtiapine 25 MG TABLET. PO SCH (07:30)
[2018-05-20] MEDS: CYANOCOBALAMIN (VITAMIN B-12) 1,000 MCG/ML VIAL IM SCH (07:32)
--- NOTE | 2018-05-20 11:38 | NUR ---
Behavior Intervention Response and Plan: BIRP Note: Behavior: Assumed Care of patient, patient located in Day Room at shift change. Patient exhibited the following behavior Drowsy, Disorganized, Non Compliant with Meds. Brief assessment on rounds of vital signs, medication needs, lab studies, and pain. Treatment plan problems 1 & 2. Intervention: Patient assessed and the following interventions initiated safety checks 15 Minute Checks Cognitive Assessment , Head to toe Assessment , Medications. Response: After interactions and interventions patient responded in the following manner, Calm , Drowsy ,Resistive. Continue to assess behaviors and condition will continue to monitor throughout the shift as needed. Patient educated on ADL's, and hand hygiene. Plan: Continue to monitor Master Treatment Plan for patient's progress toward short term goals of Medication Compliance, No harm To self/ others, long term care administrator goals to return to previous living setting vs placement. Continue to assess patient for changes in above assessment. Monitor for medication needs, pain, and safety concerns. Hourly rounding performed to ensure safe environment.
--- NOTE | 2018-05-20 14:42 | NUR ---
WEEKLY NOTE: Pt continues to wander the unit and attempts to refuse medications. Pt is medication compliant as her medications are being hid in her food. Pt does not wish to take medications as she is a [employer]. At this time, pt is scheduled to discharge to [facility] on Thursday if possible.
--- NOTE | 2018-05-20 15:07 | NUR ---
1:1 with Sue this afternoon as she reported herself as "lonely." She had her [employer] with her and shared that it had belonged to her parents. She spoke of how the words comfort her. Sue shared many memories of her past including about a dog she had named "Hudson." Sue appears to enjoy conversing with others. She expressed she intends to be involved in the recreational therapy activity this afternoon.
[2018-05-20 16:15] VITALS: BP 144/82
[2018-05-20] MEDS: LORazepam 0.5 MG TABLET PO PRN (16:28)
--- NOTE | 2018-05-20 16:35 | NUR ---
Pt in dayroom getting in financial service representative faces telling them they can't do this to her, [place] is the [place]. Pt was asked repeatedly to sit down, but pt only grew more agitated and continued to get in financial service representative faces and to threaten to delmis because this is the [place] and that we can't do this to her and that this is against her zoroastrian. Pt taken to quiet room and given prn ativan via syringe. Pt still vocalizing threats in quiet [place] at the time of this note. Will continue to monitor.
--- NOTE | 2018-05-20 20:00 | NUR ---
Behavior Intervention Response and Plan: BIRP Note: Behavior: Assumed Care of patient, patient located in Patient Room at shift change. Patient exhibited the following behavior Disorganized, Social, Non Compliant. Brief assessment on rounds of vital signs, medication needs, lab studies, and pain. Treatment plan problems . Intervention: Patient assessed and the following interventions initiated safety checks 15 Minute Checks Cognitive Assessment , Head to toe Assessment , Medications. Response: After interactions and interventions patient responded in the following manner, Drowsy , Sleeping ,Non Compliant with Meds. Continue to assess behaviors and condition will continue to monitor throughout the shift as needed. Patient educated on ADL's, and hand hygiene. Plan: Continue to monitor Master Treatment Plan for patient's progress toward short term goals of Decreased Agitation, Medication Compliance, fci goals to return to previous living setting vs placement. Continue to assess patient for changes in above assessment. Monitor for medication needs, pain, and safety concerns. Hourly rounding performed to ensure safe environment.
[2018-05-20] MEDS: traZODone 50 MG TABLET. PO SCH (20:24)
--- NOTE | 2018-05-20 23:27 | PDOC ---
Exam Note: Edgar Note: Please also refer to the separate dictated note~for this date of service dictated separately.~Patient seen individually. Discussed the patient with Nursing staff reviewed the chart.~Reviewed interim history and current functioning. Reviewed vital signs,~Labs/ Radiology~and current medications noted below. Continue current treatment with the changes noted in the dictated addendum note Assessment: Vital Signs: Vital Signs Date Time Temp Pulse Resp B/P (MAP) Pulse Ox O2 Delivery O2 Flow Rate FiO2 05/20/18 16:15 98.6 69 19 144/82 (102) 95 Room Air I&O Intake and Output 05/20/18 07:00 Intake Total 920 ml Balance 920 ml Intake Oral 920 ml Labs: Laboratory Tests Test 05/20/18 06:52 White Blood Count 4.8 x10^3/uL (4.0-11.0) Red Blood Count 4.67 x10^6/uL (3.50-5.40) Hemoglobin 13.9 g/dL (12.0-15.5) Hematocrit 41.3 % (36.0-47.0) Mean Corpuscular Volume 89 fL (79-100) Mean Corpuscular Hemoglobin 30 pg (25-35) Mean Corpuscular Hemoglobin Concent 34 g/dL (31-37) Red Cell Distribution Width 13.1 % (11.5-14.5) Platelet Count 184 x10^3/uL (140-400) Neutrophils (%) (Auto) 52 % (31-73) Lymphocytes (%) (Auto) 36 % (24-48) Monocytes (%) (Auto) 9 % (0-9) Eosinophils (%) (Auto) 2 % (0-3) Basophils (%) (Auto) 1 % (0-3) Neutrophils # (Auto) 2.5 x10^3uL (1.8-7.7) Lymphocytes # (Auto) 1.7 x10^3/uL (1.0-4.8) Monocytes # (Auto) 0.4 x10^3/uL (0.0-1.1) Eosinophils # (Auto) 0.1 x10^3/uL (0.0-0.7) Basophils # (Auto) 0.0 x10^3/uL (0.0-0.2) Sodium Level 140 mmol/L (136-145) Potassium Level 4.0 mmol/L (3.5-5.1) Chloride Level 107 mmol/L (98-107) Carbon Dioxide Level 30 mmol/L (21-32) Anion Gap 3 (6-14) L Blood Urea Nitrogen 28 mg/dL (7-20) H Creatinine 0.8 mg/dL (0.6-1.0) Estimated GFR (Cockcroft-Gault) 68.5 BUN/Creatinine Ratio 35 (6-20) H Glucose Level 91 mg/dL (70-99) Calcium Level 9.3 mg/dL (8.5-10.1) Total Bilirubin 0.6 mg/dL (0.2-1.0) Aspartate Amino Transferase (AST) 15 U/L (15-37) Alanine Aminotransferase (ALT) 17 U/L (14-59) Alkaline Phosphatase 100 U/L (46-116) Total Protein 6.3 g/dL (6.4-8.2) L Albumin 3.0 g/dL (3.4-5.0) L Albumin/Globulin Ratio 0.9 (1.0-1.7) L Current Medications: Meds: Current Medications Acetaminophen (Tylenol) 650 mg PRN Q6HRS PRN PO PAIN / TEMP; Start 05/13/18 at 02:30 Multi-Ingredient Ointment (Analgesic [place]) 1 vanesa PRN QID PRN TP MUSCLE PAIN; Start 05/13/18 at 02:30 Al Hydroxide/Mg Hydroxide (Mylanta Plus Xs) 15 ml PRN AFTMEALHC PRN PO DYSPEPSIA; Start 05/13/18 at 02:30 Magnesium Hydroxide (Milk Of Magnesia) 2,400 mg PRN QHS PRN PO CONSTIPATION Last administered on 05/18/18at 20:12; Start 05/13/18 at 02:30 Lorazepam (Ativan) 0.25 mg PRN Q6HRS PRN PO ANXIETY / AGITATION Last administered on 05/20/18at 16:28; Start 05/13/18 at 02:45 Lorazepam (Ativan) 1 mg DAILY IM Last administered on 05/18/18at 15:11; Start 05/13/18 at 08:15; Stop 05/18/18 at 17:21; Status DC Haloperidol Lactate (Haldol) 5 mg DAILY IM Last administered on 05/18/18 15: 07; Start 05/13/18 at 08:15; Stop 05/18/18 at 17:21; Status DC Cyanocobalamin (Vitamin B-12) 1,000 mcg DAILY IM Last administered on at 13:52; Start 05/13/18 at 18:00; Stop 05/17/18 at 17:59; Status DC Cyanocobalamin (Vitamin B-12) 1,000 mcg WEEKLY IM Last administered on at 07:32; Start 05/20/18 at 09:00 Vitamin D (Vitamin D3) 50,000 unit WEEKLY PO ; Start 05/13/18 at 18:30; Stop 05/13/18 at 18:39; Status DC Vitamin D (Vitamin D3) 50,000 unit WEEKLY PO Last administered on 05/14/18at 08 :13; Start 05/14/18 at 09:00 Quetiapine Fumarate (SEROquel) 25 mg DAILY PO Last administered on 05/18/18at 07:50; Start 05/15/18 at 09:00; Stop 05/18/18 at 17:21; Status DC Trazodone HCl (Desyrel) 25 mg QHS PO Last administered on 05/20/18 20:24; Start 05/17/18 at 21:00 Trazodone HCl (Desyrel) 25 mg PRN QHS PRN PO INSOMNIA; Start 05/17/18 at 18:00 Quetiapine Fumarate (SEROquel) 37.5 mg DAILY PO Last administered on at 07:30; Start 05/19/18 at 09:00 Active Scripts Active Reported Remeron (Mirtazapine) 15 Mg Tablet 0.5 Tab PO QHS I have reviewed the current psychotropics carefully including drug interactions. Risk benefit ratio favors no change other than as noted in my dictated progress note. 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
[2018-05-21 05:47] VITALS: BP 146/73
[2018-05-21] MEDS: QUEtiapine 25 MG TABLET. PO SCH (08:40)
[2018-05-21] MEDS: CHOLECALCIFEROL (VITAMIN D3) 50,000 UNIT CAPSULE PO SCH (08:40)
--- NOTE | 2018-05-21 13:27 | NUR ---
Call placed to Shana, curriculum director at [facility] at [phone]. [facility] is a 66 bed memory care community. Faxed Shana referral information and informed of tentative d/c date middle of next week. Informed Shana that on site evaluation would be welcome if [facility] desired. Will follow up early next week. Sue attended social work group this morning and worked on a coloring page as well as participated in answering questions posed to her and the group.
[2018-05-21 15:52] VITALS: BP 150/81
--- NOTE | 2018-05-21 18:46 | NUR ---
Assumed care of pt @ approx 0700. Pt confused and anxious throughout this shift. Pt was sitting up in Dining Room for breakfast at the time of our initial encounter. This RN spoke with the pt re: why she is here, and what her medications are for. We discussed her [employer] beliefs, as well. Pt ultimately took her meds whole w/water, without issue. Pt has asked repeatedly where her purse, money, etc are. I reminded her multiple times that they are locked in the hospital safe and she will get them back upon discharge. Pt spoke to this RN about the fact that her childhood was not very happy - her stepmother did not like her, and she thinks she was jealous of the relationship between the pt and her father. Pt wandered the hallways quite a bit. No needs currently voiced. Will continue to monitor and and assist pt in working towards her treatment and discharge goals.
[2018-05-21] MEDS: traZODone 50 MG TABLET. PO SCH (21:12)
--- NOTE | 2018-05-21 21:16 | PN ---
DATE: 05/19/2018 PSYCHIATRIC PROGRESS NOTE This late entry 05/19/2018 covers elements not covered in my initial note. SUBJECTIVE: I met with the patient in the evening. The patient slept 6-7 hours previous night, takes meds in hot chocolate. Remains confused, oblivious of her surroundings. REVIEW OF SYSTEMS: No CV, , pulmonary, eye, ENT system symptoms on review. MENTAL STATUS EXAM: Oriented to herself. Insight, judgment, recent and remote memory, attention, concentration, fund of knowledge poor, consistent with her diagnosis mentioned in my initial note. IMPRESSION: Major neurocognitive disorder, Alzheimer, vascular with delusion, depression, behavioral disturbance. Rest unchanged. PLAN: No change from initial note. MAN Padmini RUFF MD DR: KATARZYNA/bibiana JOB#: [id number] / [id number]
--- NOTE | 2018-05-21 23:42 | PDOC ---
Exam Note: Edgar Note: Please also refer to the separate dictated note~for this date of service dictated separately.~Patient seen individually. Discussed the patient with Nursing staff reviewed the chart.~Reviewed interim history and current functioning. Reviewed vital signs,~Labs/ Radiology~and current medications noted below. Continue current treatment with the changes noted in the dictated addendum note Assessment: Vital Signs: Vital Signs Date Time Temp Pulse Resp B/P (MAP) Pulse Ox O2 Delivery O2 Flow Rate FiO2 05/21/18 15:52 98.6 75 20 150/81 (104) 100 Room Air I&O Intake and Output 05/21/18 07:00 Intake Total 720 ml Balance 720 ml Intake Oral 720 ml # Voids 1 Current Medications: Meds: Current Medications Acetaminophen (Tylenol) 650 mg PRN Q6HRS PRN PO PAIN / TEMP; Start 05/13/18 at 02:30 Multi-Ingredient Ointment (Analgesic [place]) 1 vanesa PRN QID PRN TP MUSCLE PAIN; Start 05/13/18 at 02:30 Al Hydroxide/Mg Hydroxide (Mylanta Plus Xs) 15 ml PRN AFTMEALHC PRN PO DYSPEPSIA; Start 05/13/18 at 02:30 Magnesium Hydroxide (Milk Of Magnesia) 2,400 mg PRN QHS PRN PO CONSTIPATION Last administered on 05/18/18at 20:12; Start 05/13/18 at 02:30 Lorazepam (Ativan) 0.25 mg PRN Q6HRS PRN PO ANXIETY / AGITATION Last administered on 05/20/18at 16:28; Start 05/13/18 at 02:45 Lorazepam (Ativan) 1 mg DAILY IM Last administered on 05/18/18at 15:11; Start 05/13/18 at 08:15; Stop 05/18/18 at 17:21; Status DC Haloperidol Lactate (Haldol) 5 mg DAILY IM Last administered on 05/18/18at 15: 07; Start 05/13/18 at 08:15; Stop 05/18/18 at 17:21; Status DC Cyanocobalamin (Vitamin B-12) 1,000 mcg DAILY IM Last administered on at 13:52; Start 05/13/18 at 18:00; Stop 05/17/18 at 17:59; Status DC Cyanocobalamin (Vitamin B-12) 1,000 mcg WEEKLY IM Last administered on at 07:32; Start 05/20/18 at 09:00 Vitamin D (Vitamin D3) 50,000 unit WEEKLY PO ; Start 05/13/18 at 18:30; Stop 05/13/18 at 18:39; Status DC Vitamin D (Vitamin D3) 50,000 unit WEEKLY PO Last administered on 05/21/18at 08 :40; Start 05/14/18 at 09:00 Quetiapine Fumarate (SEROquel) 25 mg DAILY PO Last administered on 05/18/18at 07:50; Start 05/15/18 at 09:00; Stop 05/18/18 at 17:21; Status DC Trazodone HCl (Desyrel) 25 mg QHS PO Last administered on 05/21/18at 21:12; Start 05/17/18 at 21:00 Trazodone HCl (Desyrel) 25 mg PRN QHS PRN PO INSOMNIA; Start 05/17/18 at 18:00 Quetiapine Fumarate (SEROquel) 37.5 mg DAILY PO Last administered on at 08:40; Start 05/19/18 at 09:00 Active Scripts Active Reported Remeron (Mirtazapine) 15 Mg Tablet 0.5 Tab PO QHS I have reviewed the current psychotropics carefully including drug interactions. Risk benefit ratio favors no change other than as noted in my dictated progress note. 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
[2018-05-22 06:20] VITALS: BP 154/80
[2018-05-22] MEDS: QUEtiapine 25 MG TABLET. PO SCH (11:03)
[2018-05-22] MEDS: LORazepam 0.5 MG TABLET PO PRN (14:16)
[2018-05-22 16:47] VITALS: BP 131/78
--- NOTE | 2018-05-22 19:58 | PN ---
DATE: 05/20/2018 SUBJECTIVE: The patient was seen on rounds in the evening of 05/20/2018, staffed at a treatment team meeting in the morning with the entire team. Her daughter, Jessica attended the treatment team meeting. We had a lengthy discussion about the patient's history, scientologist beliefs of not using any medications. She slept 7-1/2 hours the previous evening. Appetite 90%, remains confused. REVIEW OF SYSTEMS: No CV, , pulmonary, eye, ENT system symptoms on review. Reliability poor. MENTAL STATUS EXAM: Oriented to herself. Insight, judgment, recent and remote memory, attention, concentration, fund of knowledge poor, consistent with her diagnosis. LABORATORY DATA: Reviewed. IMPRESSION: Major neurocognitive disorder, Alzheimer, vascular with delusion, depression, behavioral disturbance; anxiety disorder, unspecified; impulse control disorder, unspecified. PLAN: Continue the patient on psychotropics as mentioned in my initial note. Adjust further as clinically indicated. We will try and keep her psychotropics ____ to have good compliance. KHRIS RUFF MD DR: KATARZYNA/bibiana JOB#: [id number] / [id number]
--- NOTE | 2018-05-22 20:25 | NUR ---
Behavior Intervention Response and Plan: BIRP Note: Behavior: Assumed Care of patient, patient located in Patient Room at shift change. Patient exhibited the following behavior Calm, Cooperative, Anxious. Brief assessment on rounds of vital signs, medication needs, lab studies, and pain. Treatment plan problems . Intervention: Patient assessed and the following interventions initiated safety checks 15 Minute Checks Cognitive Assessment , Head to toe Assessment , Medications. Response: After interactions and interventions patient responded in the following manner, Non Compliant with Meds , Anxious ,Appropriate. Continue to assess behaviors and condition will continue to monitor throughout the shift as needed. Patient educated on ADL's, and hand hygiene. Plan: Continue to monitor Master Treatment Plan for patient's progress toward short term goals of Decreased Anxiety, Medication Compliance, terminal gauger goals to return to previous living setting vs placement. Continue to assess patient for changes in above assessment. Monitor for medication needs, pain, and safety concerns. Hourly rounding performed to ensure safe environment.
[2018-05-22] MEDS: traZODone 50 MG TABLET. PO SCH (20:33)
--- NOTE | 2018-05-22 22:53 | NUR ---
Behavior Intervention Response and Plan: BIRP Note: Behavior: Assumed Care of patient, patient located in Hallway at shift change. Patient exhibited the following behavior Calm, Wandering, Cooperative. Brief assessment on rounds of vital signs, medication needs, lab studies, and pain. Treatment plan problems . Intervention: Patient assessed and the following interventions initiated safety checks 15 Minute Checks Personal Alarm in place , Cognitive Assessment , Head to toe Assessment. Response: After interactions and interventions patient responded in the following manner, Calm , Wandering ,Cooperative. Continue to assess behaviors and condition will continue to monitor throughout the shift as needed. Patient educated on ADL's, and hand hygiene. Plan: Continue to monitor Master Treatment Plan for patient's progress toward short term goals of Medication Compliance, Improved Mood, care home goals to return to previous living setting vs placement. Continue to assess patient for changes in above assessment. Monitor for medication needs, pain, and safety concerns. Hourly rounding performed to ensure safe environment.
--- NOTE | 2018-05-22 23:08 | PDOC ---
Exam Note: Edgar Note: Please also refer to the separate dictated note~for this date of service dictated separately.~Patient seen individually. Discussed the patient with Nursing staff reviewed the chart.~Reviewed interim history and current functioning. Reviewed vital signs,~Labs/ Radiology~and current medications noted below. Continue current treatment with the changes noted in the dictated addendum note Assessment: Vital Signs: Vital Signs Date Time Temp Pulse Resp B/P (MAP) Pulse Ox O2 Delivery O2 Flow Rate FiO2 05/22/18 16:47 98.0 60 18 131/78 (95) 97 Room Air I&O Intake and Output 05/22/18 07:00 Intake Total 600 ml Balance 600 ml Intake Oral 600 ml # Voids 1 Current Medications: Meds: Current Medications Acetaminophen (Tylenol) 650 mg PRN Q6HRS PRN PO PAIN / TEMP; Start 05/13/18 at 02:30 Multi-Ingredient Ointment (Analgesic [place]) 1 vanesa PRN QID PRN TP MUSCLE PAIN; Start 05/13/18 at 02:30 Al Hydroxide/Mg Hydroxide (Mylanta Plus Xs) 15 ml PRN AFTMEALHC PRN PO DYSPEPSIA; Start 05/13/18 at 02:30 Magnesium Hydroxide (Milk Of Magnesia) 2,400 mg PRN QHS PRN PO CONSTIPATION Last administered on 05/18/18at 20:12; Start 05/13/18 at 02:30 Lorazepam (Ativan) 0.25 mg PRN Q6HRS PRN PO ANXIETY / AGITATION Last administered on 05/22/18at 14:16; Start 05/13/18 at 02:45 Lorazepam (Ativan) 1 mg DAILY IM Last administered on 05/18/18at 15:11; Start 05/13/18 at 08:15; Stop 05/18/18 at 17:21; Status DC Haloperidol Lactate (Haldol) 5 mg DAILY IM Last administered on 05/18/18at 15: 07; Start 05/13/18 at 08:15; Stop 05/18/18 at 17:21; Status DC Cyanocobalamin (Vitamin B-12) 1,000 mcg DAILY IM Last administered on at 13:52; Start 05/13/18 at 18:00; Stop 05/17/18 at 17:59; Status DC Cyanocobalamin (Vitamin B-12) 1,000 mcg WEEKLY IM Last administered on at 07:32; Start 05/20/18 at 09:00 Vitamin D (Vitamin D3) 50,000 unit WEEKLY PO ; Start 05/13/18 at 18:30; Stop 05/13/18 at 18:39; Status DC Vitamin D (Vitamin D3) 50,000 unit WEEKLY PO Last administered on 05/21/18at 08 :40; Start 05/14/18 at 09:00 Quetiapine Fumarate (SEROquel) 25 mg DAILY PO Last administered on 05/18/18at 07:50; Start 05/15/18 at 09:00; Stop 05/18/18 at 17:21; Status DC Trazodone HCl (Desyrel) 25 mg QHS PO Last administered on 05/22/18at 20:33; Start 05/17/18 at 21:00 Trazodone HCl (Desyrel) 25 mg PRN QHS PRN PO INSOMNIA; Start 05/17/18 at 18:00 Quetiapine Fumarate (SEROquel) 37.5 mg DAILY PO Last administered on at 11:03; Start 05/19/18 at 09:00 Active Scripts Active Reported Remeron (Mirtazapine) 15 Mg Tablet 0.5 Tab PO QHS I have reviewed the current psychotropics carefully including drug interactions. Risk benefit ratio favors no change other than as noted in my dictated progress note. 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
--- NOTE | 2018-05-23 00:01 | PN ---
DATE: 05/21/2018 This is a late entry for date of service 05/21/2018 and covers elements not covered in my initial note. SUBJECTIVE: I met with the patient in the evening. The patient slept 7 hours previous evening, remains confused, anxious, takes her medications whole with walker. REVIEW OF SYSTEMS: No CV, , pulmonary, eye, ENT system symptoms on review. Reliability poor. MENTAL STATUS EXAM: Oriented to herself. Insight, judgment, recent and remote memory, attention, concentration, fund of knowledge poor, consistent with her diagnosis. LABORATORY DATA: Reviewed. IMPRESSION: Major neurocognitive disorder, Alzheimer, vascular with delusion, depression, behavioral disturbance. Rest unchanged. PLAN: No change from initial note. KHRIS RUFF MD DR: KATARZYNA/bibiana JOB#: [id number] / [id number]
--- NOTE | 2018-05-23 05:56 | NUR ---
At 0300 pt advised she was in pain in her left shoulder but did not want any pain medication. I advised we could reposition in bed by changing sides from her left to right side so that the pressure was off her left shoulder. The change of position was successful pt did have some redness to her left side including shoulder from lying in one position most of the night. After changing positions pt had no further complaints of pain or discomfort. Will continue to monitor patient.
[2018-05-23 06:11] VITALS: BP 123/76
[2018-05-23] MEDS: QUEtiapine 25 MG TABLET. PO SCH (08:22)
--- NOTE | 2018-05-23 12:49 | PN ---
DATE: 05/22/2018 This is a late entry for date of service 05/22/2018 and covers elements not covered in my initial note. SUBJECTIVE: I met with the patient in the evening. The patient slept reasonably well the night before, was somewhat tearful earlier in the day. REVIEW OF SYSTEMS: Complains of her arm hurting, but no CV, , pulmonary, eye, ENT system symptoms on review. Reliability poor. MENTAL STATUS EXAM: Oriented to herself. Insight, judgment, recent and remote memory, attention, concentration, fund of knowledge poor, consistent with her diagnosis as mentioned in my initial note. PLAN: No change from initial note. MAN Padmini RUFF MD DR: KATARZYNA/bibiana JOB#: [id number] / [id number]
--- NOTE | 2018-05-23 13:06 | NUR ---
Patient has been pleasantly confused this shift. She has been wandering the hallways. Patient was compliant with medication, crushed in pudding. No negative moods or behaviors observed. Will continue to monitor.
[2018-05-23 16:36] VITALS: BP 102/66
[2018-05-23] MEDS: traZODone 50 MG TABLET. PO SCH (19:48)
--- NOTE | 2018-05-23 22:05 | NUR ---
Behavior Intervention Response and Plan: BIRP Note: Behavior: Assumed Care of patient, patient located in Day Room at shift change. Patient exhibited the following behavior Somatic, Resistive, Non Compliant with Meds. Brief assessment on rounds of vital signs, medication needs, lab studies, and pain. Treatment plan problems . Intervention: Patient assessed and the following interventions initiated safety checks 15 Minute Checks Personal Alarm in place , Cognitive Assessment , Head to toe Assessment. Response: After interactions and interventions patient responded in the following manner, Somatic , Cooperative ,Non Compliant with Meds. Continue to assess behaviors and condition will continue to monitor throughout the shift as needed. Patient educated on ADL's, and hand hygiene. Plan: Continue to monitor Master Treatment Plan for patient's progress toward short term goals of Medication Compliance, Improved Mood, intermediate goals to return to previous living setting vs placement. Continue to assess patient for changes in above assessment. Monitor for medication needs, pain, and safety concerns. Hourly rounding performed to ensure safe environment.
--- NOTE | 2018-05-23 23:09 | PDOC ---
Exam Note: Edgar Note: Please also refer to the separate dictated note~for this date of service dictated separately.~Patient seen individually. Discussed the patient with Nursing staff reviewed the chart.~Reviewed interim history and current functioning. Reviewed vital signs,~Labs/ Radiology~and current medications noted below. Continue current treatment with the changes noted in the dictated addendum note Assessment: Vital Signs: Vital Signs Date Time Temp Pulse Resp B/P (MAP) Pulse Ox O2 Delivery O2 Flow Rate FiO2 05/23/18 16:36 98.6 81 20 102/66 (78) 95 Room Air I&O Intake and Output 05/23/18 07:00 Intake Total 960 ml Balance 960 ml Intake Oral 960 ml Current Medications: Meds: Current Medications Acetaminophen (Tylenol) 650 mg PRN Q6HRS PRN PO PAIN / TEMP; Start 05/13/18 at 02:30 Multi-Ingredient Ointment (Analgesic [place]) 1 vanesa PRN QID PRN TP MUSCLE PAIN; Start 05/13/18 at 02:30 Al Hydroxide/Mg Hydroxide (Mylanta Plus Xs) 15 ml PRN AFTMEALHC PRN PO DYSPEPSIA; Start 05/13/18 at 02:30 Magnesium Hydroxide (Milk Of Magnesia) 2,400 mg PRN QHS PRN PO CONSTIPATION Last administered on 05/18/18at 20:12; Start 05/13/18 at 02:30 Lorazepam (Ativan) 0.25 mg PRN Q6HRS PRN PO ANXIETY / AGITATION Last administered on 05/22/18at 14:16; Start 05/13/18 at 02:45 Lorazepam (Ativan) 1 mg DAILY IM Last administered on 05/18/18at 15:11; Start 05/13/18 at 08:15; Stop 05/18/18 at 17:21; Status DC Haloperidol Lactate (Haldol) 5 mg DAILY IM Last administered on 05/18/18at 15: 07; Start 05/13/18 at 08:15; Stop 05/18/18 at 17:21; Status DC Cyanocobalamin (Vitamin B-12) 1,000 mcg DAILY IM Last administered on at 13:52; Start 05/13/18 at 18:00; Stop 05/17/18 at 17:59; Status DC Cyanocobalamin (Vitamin B-12) 1,000 mcg WEEKLY IM Last administered on at 07:32; Start 05/20/18 at 09:00 Vitamin D (Vitamin D3) 50,000 unit WEEKLY PO ; Start 05/13/18 at 18:30; Stop 05/13/18 at 18:39; Status DC Vitamin D (Vitamin D3) 50,000 unit WEEKLY PO Last administered on 05/21/18at 08 :40; Start 05/14/18 at 09:00 Quetiapine Fumarate (SEROquel) 25 mg DAILY PO Last administered on 05/18/18at 07:50; Start 05/15/18 at 09:00; Stop 05/18/18 at 17:21; Status DC Trazodone HCl (Desyrel) 25 mg QHS PO Last administered on 05/23/18at 19:48; Start 05/17/18 at 21:00 Trazodone HCl (Desyrel) 25 mg PRN QHS PRN PO INSOMNIA; Start 05/17/18 at 18:00 Quetiapine Fumarate (SEROquel) 37.5 mg DAILY PO Last administered on at 08:22; Start 05/19/18 at 09:00 Active Scripts Active Reported Remeron (Mirtazapine) 15 Mg Tablet 0.5 Tab PO QHS I have reviewed the current psychotropics carefully including drug interactions. Risk benefit ratio favors no change other than as noted in my dictated progress note. Diagnosis: Problems: (1) Anxiety disorder (2) Impulse control disorder (3) Major neurocognitive disorder, due to vascular disease, with behavioral disturbance, mild (4) Mixed Alzheimer's and vascular dementia with behavior disturbances KHRIS RUFF MD May 23, 2018 23:09
--- NOTE | 2018-05-24 03:43 | RAD ---
Three views left shoulder History: pain status post fall Internally and externally rotated AP of shoulder obtained, as well as "Y" view. The glenohumeral relationship is normal. There is marginal spurring of the AC joint. Impression: No acute findings. end impression Electronically signed by: Darren Hale III, MD (05/24/2018 3:41 AM) [facility]
--- NOTE | 2018-05-24 05:53 | NUR ---
Pt complains of chronic left shoulder pain, called Dr Chavarria who ordered routine x-ray of left shoulder. Results came back no acute findings. Pt complains of pain on a daily basis in her left shoulder since admission states it was due to a fall she had previous to her admission, however pt refused pain medication when offered to pt stating she is [employer] and does not take medication.
[2018-05-24 06:10] VITALS: BP 153/79
[2018-05-24] MEDS: QUEtiapine 25 MG TABLET. PO SCH (08:13)
[2018-05-24] MEDS: LORazepam 0.5 MG TABLET PO PRN (11:30)
--- NOTE | 2018-05-24 12:39 | NUR ---
Patient has been very tearful and anxious this shift. She is only alert to herself. She takes her medication crushed in pudding. PRN Lorazepam administered, with effective results. Patient has been in her room and wandering the hallways. Will continue to monitor.
[2018-05-24 15:40] VITALS: BP 157/74
--- NOTE | 2018-05-24 18:19 | NUR ---
Patient became very anxious and agitated, she said she gave a woman money and she never gave it back to her, she started flailing her arms in the air. Staff assisted patient to secured hallway to try and calm down. This nurse went in to talk to patient, she became calm and was sitting in the chair. After this nurse left, patient then became agitated again, screaming, banging on the doors, yelling at the doctor. Received order for PRN Zyprexa 2.5mg, administered and was soon effective.
[2018-05-24] MEDS: traZODone 50 MG TABLET. PO SCH (20:14)
--- NOTE | 2018-05-24 21:31 | PN ---
DATE: 05/23/2018 PSYCHIATRIC PROGRESS NOTE This late entry 05/23/2018 covers elements not covered in my initial note. SUBJECTIVE: I met with the patient in the evening. The patient remains confused, quite tearful, anxious, had spent quite some time with her trying to address her fears about where she is and the fact that she states she feels "lonely," since she has few contact with her family. She slept 5-1/2 hours previous evening. REVIEW OF SYSTEMS: No CV, , pulmonary, eye, ENT system symptoms on review. Reliability poor. MENTAL STATUS EXAM: Oriented to herself. Insight, judgment, recent and remote memory, attention, concentration, fund of knowledge poor, consistent with her diagnosis. LABORATORY DATA: Reviewed. IMPRESSION: Major neurocognitive disorder, Alzheimer, vascular with depression, delusion, behavioral disturbance. Rest unchanged. PLAN: Continue current psychotropics. Consider adding Zoloft as an antidepressant. MAN Padmini RUFF MD DR: KATARZYNA/bibiana JOB#: [id number] / [id number]
--- NOTE | 2018-05-24 22:09 | NUR ---
Behavior Intervention Response and Plan: BIRP Note: Behavior: Assumed Care of patient, patient located in Day Room at shift change. Patient exhibited the following behavior Calm, Somatic, Non Compliant with Meds. Brief assessment on rounds of vital signs, medication needs, lab studies, and pain. Treatment plan problems . Intervention: Patient assessed and the following interventions initiated safety checks 15 Minute Checks Personal Alarm in place , Cognitive Assessment , Head to toe Assessment. Response: After interactions and interventions patient responded in the following manner, Calm , Cooperative ,Non Compliant with Meds. Continue to assess behaviors and condition will continue to monitor throughout the shift as needed. Patient educated on ADL's, and hand hygiene. 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 Continue to assess patient for changes in above assessment. Monitor for medication needs, pain, and safety concerns. Hourly rounding performed to ensure safe environment.
--- NOTE | 2018-05-24 23:11 | PDOC ---
Exam Note: Edgar Note: Please also refer to the separate dictated note~for this date of service dictated separately.~Patient seen individually. Discussed the patient with Nursing staff reviewed the chart.~Reviewed interim history and current functioning. Reviewed vital signs,~Labs/ Radiology~and current medications noted below. Continue current treatment with the changes noted in the dictated addendum note Assessment: Vital Signs: Vital Signs Date Time Temp Pulse Resp B/P (MAP) Pulse Ox O2 Delivery O2 Flow Rate FiO2 05/24/18 15:40 97.3 95 22 157/74 (101) 100 Room Air I&O Intake and Output 05/24/18 07:00 Intake Total 780 ml Balance 780 ml Intake Oral 780 ml Current Medications: Meds: Current Medications Acetaminophen (Tylenol) 650 mg PRN Q6HRS PRN PO PAIN / TEMP Last administered on 05/24/18at 11:29; Start 05/13/18 at 02:30 Multi-Ingredient Ointment (Analgesic [place]) 1 vanesa PRN QID PRN TP MUSCLE PAIN; Start 05/13/18 at 02:30 Al Hydroxide/Mg Hydroxide (Mylanta Plus Xs) 15 ml PRN AFTMEALHC PRN PO DYSPEPSIA; Start 05/13/18 at 02:30 Magnesium Hydroxide (Milk Of Magnesia) 2,400 mg PRN QHS PRN PO CONSTIPATION Last administered on 05/18/18at 20:12; Start 05/13/18 at 02:30 Lorazepam (Ativan) 0.25 mg PRN Q6HRS PRN PO ANXIETY / AGITATION Last administered on 05/24/18at 11:30; Start 05/13/18 at 02:45 Lorazepam (Ativan) 1 mg DAILY IM Last administered on 05/18/18at 15:11; Start 05/13/18 at 08:15; Stop 05/18/18 at 17:21; Status DC Haloperidol Lactate (Haldol) 5 mg DAILY IM Last administered on 05/18/18at 15: 07; Start 05/13/18 at 08:15; Stop 05/18/18 at 17:21; Status DC Cyanocobalamin (Vitamin B-12) 1,000 mcg DAILY IM Last administered on at 13:52; Start 05/13/18 at 18:00; Stop 05/17/18 at 17:59; Status DC Cyanocobalamin (Vitamin B-12) 1,000 mcg WEEKLY IM Last administered on at 07:32; Start 05/20/18 at 09:00 Vitamin D (Vitamin D3) 50,000 unit WEEKLY PO ; Start 05/13/18 at 18:30; Stop 05/13/18 at 18:39; Status DC Vitamin D (Vitamin D3) 50,000 unit WEEKLY PO Last administered on 05/21/18at 08 :40; Start 05/14/18 at 09:00 Quetiapine Fumarate (SEROquel) 25 mg DAILY PO Last administered on 05/18/18at 07:50; Start 05/15/18 at 09:00; Stop 05/18/18 at 17:21; Status DC Trazodone HCl (Desyrel) 25 mg QHS PO Last administered on 05/24/18at 20:14; Start 05/17/18 at 21:00 Trazodone HCl (Desyrel) 25 mg PRN QHS PRN PO INSOMNIA; Start 05/17/18 at 18:00 Quetiapine Fumarate (SEROquel) 37.5 mg DAILY PO Last administered on at 08:13; Start 05/19/18 at 09:00 Sertraline HCl (Zoloft) 50 mg DAILY PO ; Start 05/25/18 at 09:00 Olanzapine (ZyPREXA ZYDIS) 5 mg PRN Q2HR PRN PO PSYCHOSIS; Start 05/24/18 at 18:30; Stop 05/24/18 at 18:30; Status DC Olanzapine (ZyPREXA ZYDIS) 2.5 mg PRN Q2HR PRN PO PSYCHOSIS; Start 05/24/18 at 18:30 Active Scripts Active Reported Remeron (Mirtazapine) 15 Mg Tablet 0.5 Tab PO QHS I have reviewed the current psychotropics carefully including drug interactions. Risk benefit ratio favors no change other than as noted in my dictated progress note. 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
[2018-05-25 06:34] VITALS: BP 178/92
[2018-05-25] MEDS: SERTRALINE 50 MG TABLET. PO SCH (07:50)
[2018-05-25] MEDS: QUEtiapine 25 MG TABLET. PO SCH (07:51)
--- NOTE | 2018-05-25 09:54 | NUR ---
Faxed update to BURTON Hung at [facility], with request for phone call to coordinate upcoming transfer. Awaiting return call.
--- NOTE | 2018-05-25 13:15 | NUR ---
Received call from BURTON Hung at [facility], indicating that Sue has been accepted for placement on 05/26/18. [facility] does not provide transport. Call placed to Jessica, daughter, to inquire about transport arrangements and preferences. Awaiting return call.
--- NOTE | 2018-05-25 13:20 | NUR ---
[facility] Social Work Discharge Planning Form Patient Name FROY HATFIELD Admit Date: 05/13/18 DISCHARGE PLAN Discharge Destination: [facility] on 05/26/18 Care Assessment: Not required in [facility] Transportation: Family transport, awaiting pickle solution maker time Special Instructions/Notes: Arrange for follow up appointments with PCP and in house facility psychiatrist in 7-10 days. DISCHARGE TO FACILITY Facility: [facility] Address: [address] [place] [address] Contact Name: BURTON Hung Contact Name: Caitlyn Saldana Director PCP: Dr. Keira Springer [phone] phone, fax Psychiatrist: Dr. Lebron, facility provider
--- NOTE | 2018-05-25 14:05 | NUR ---
Spoke with Jessica, daughter, who expressed desire for transportation to be arranged for Sue's discharge on 05/26/18. Call placed to [facility] and spoke to Gertrudis. 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 Call placed to Jessica to inform that she needs to contact Gertrudis to make arrangements for payment.
--- NOTE | 2018-05-25 15:34 | NUR ---
Patient has been compliant with medications, hidden in pudding. She has had no negative moods or behaviors observed thus far. She continues to wander the hallways, pleasantly confused. Will continue to monitor.
[2018-05-25 16:07] VITALS: BP 126/77
[2018-05-25] MEDS: traZODone 50 MG TABLET. PO SCH (19:34)
--- NOTE | 2018-05-25 21:04 | PN ---
DATE: 05/24/2018 PSYCHIATRIC PROGRESS NOTE This late entry 05/24/2018 covers elements not covered in my initial note. SUBJECTIVE: I met with the patient in the evening at length repeatedly. Discussed with nursing staff, reviewed the chart. The patient slept 7 hours previous evening. She has been anxious, somewhat tearful during the day, but still manageable. By the late evening; however, it was an entirely different story. She was agitated, aggressive, banging on the doors, had to be placed on the West Hallway, was screaming, yelling, paranoid, hitting on the glass partition from the nursing station. REVIEW OF SYSTEMS: No CV, , pulmonary, eye, ENT system symptoms on review. MENTAL STATUS EXAM: Oriented to herself. Insight, judgment, recent and remote memory, attention, concentration, fund of knowledge poor, consistent with her diagnosis. She slept 7 hours previous night. IMPRESSION: Major neurocognitive disorder, Alzheimer, vascular with delusion, depression, behavioral disturbance; anxiety disorder, unspecified; impulse control disorder, unspecified. PLAN: Check UA. Rule out urinary tract infection causing the agitation, start Zoloft 50 mg a day. Continue rest unchanged per initial note. MAN Padmini RUFF MD DR: KATARZYNA/bibiana JOB#: [id number] / [id number]
--- NOTE | 2018-05-25 23:09 | NUR ---
Behavior Intervention Response and Plan: BIRP Note: Behavior: Assumed Care of patient, patient located in Day Room at shift change. Patient exhibited the following behavior Calm, Disorganized, Social. Brief assessment on rounds of vital signs, medication needs, lab studies, and pain. Treatment plan problems . Intervention: Patient assessed and the following interventions initiated safety checks 15 Minute Checks Head to toe Assessment , Cognitive Assessment , Medications. Response: After interactions and interventions patient responded in the following manner, Able to Focus on Task , Non Compliant with Meds ,Resistive. Continue to assess behaviors and condition will continue to monitor throughout the shift as needed. Patient educated on ADL's, and hand hygiene. 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 Continue to assess patient for changes in above assessment. Monitor for medication needs, pain, and safety concerns. Hourly rounding performed to ensure safe environment.
--- NOTE | 2018-05-25 23:11 | PDOC ---
Exam Note: Edgar Note: Please also refer to the separate dictated note~for this date of service dictated separately.~Patient seen individually. Discussed the patient with Nursing staff reviewed the chart.~Reviewed interim history and current functioning. Reviewed vital signs,~Labs/ Radiology~and current medications noted below. Continue current treatment with the changes noted in the dictated addendum note Assessment: Vital Signs: Vital Signs Date Time Temp Pulse Resp B/P (MAP) Pulse Ox O2 Delivery O2 Flow Rate FiO2 05/25/18 16:07 97.4 71 20 126/77 (93) 100 Room Air I&O Intake and Output 05/25/18 07:00 Intake Total 480 ml Output Total 120 ml Balance 360 ml Intake Oral 480 ml Output Urine Total 120 ml Current Medications: Meds: Current Medications Acetaminophen (Tylenol) 650 mg PRN Q6HRS PRN PO PAIN / TEMP Last administered on 05/24/18 11:29; Start 05/13/18 at 02:30 Multi-Ingredient Ointment (Analgesic [place]) 1 vanesa PRN QID PRN TP MUSCLE PAIN; Start 05/13/18 at 02:30 Al Hydroxide/Mg Hydroxide (Mylanta Plus Xs) 15 ml PRN AFTMEALHC PRN PO DYSPEPSIA; Start 05/13/18 at 02:30 Magnesium Hydroxide (Milk Of Magnesia) 2,400 mg PRN QHS PRN PO CONSTIPATION Last administered on 05/18/18at 20:12; Start 05/13/18 at 02:30 Lorazepam (Ativan) 0.25 mg PRN Q6HRS PRN PO ANXIETY / AGITATION Last administered on 05/24/18at 11:30; Start 05/13/18 at 02:45 Lorazepam (Ativan) 1 mg DAILY IM Last administered on 05/18/18 15:11; Start 05/13/18 at 08:15; Stop 05/18/18 at 17:21; Status DC Haloperidol Lactate (Haldol) 5 mg DAILY IM Last administered on 05/18/18 15: 07; Start 05/13/18 at 08:15; Stop 05/18/18 at 17:21; Status DC Cyanocobalamin (Vitamin B-12) 1,000 mcg DAILY IM Last administered on at 13:52; Start 05/13/18 at 18:00; Stop 05/17/18 at 17:59; Status DC Cyanocobalamin (Vitamin B-12) 1,000 mcg WEEKLY IM Last administered on at 07:32; Start 05/20/18 at 09:00 Vitamin D (Vitamin D3) 50,000 unit WEEKLY PO ; Start 05/13/18 at 18:30; Stop 05/13/18 at 18:39; Status DC Vitamin D (Vitamin D3) 50,000 unit WEEKLY PO Last administered on 05/21/18at 08 :40; Start 05/14/18 at 09:00 Quetiapine Fumarate (SEROquel) 25 mg DAILY PO Last administered on 05/18/18at 07:50; Start 05/15/18 at 09:00; Stop 05/18/18 at 17:21; Status DC Trazodone HCl (Desyrel) 25 mg QHS PO Last administered on 05/25/18at 19:34; Start 05/17/18 at 21:00 Trazodone HCl (Desyrel) 25 mg PRN QHS PRN PO INSOMNIA; Start 05/17/18 at 18:00 Quetiapine Fumarate (SEROquel) 37.5 mg DAILY PO Last administered on at 07:51; Start 05/19/18 at 09:00 Sertraline HCl (Zoloft) 50 mg DAILY PO Last administered on 05/25/18at 07:50; Start 05/25/18 at 09:00 Olanzapine (ZyPREXA ZYDIS) 5 mg PRN Q2HR PRN PO PSYCHOSIS; Start 05/24/18 at 18:30; Stop 05/24/18 at 18:30; Status DC Olanzapine (ZyPREXA ZYDIS) 2.5 mg PRN Q2HR PRN PO PSYCHOSIS; Start 05/24/18 at 18:30 Active Scripts Active Reported Remeron (Mirtazapine) 15 Mg Tablet 0.5 Tab PO QHS I have reviewed the current psychotropics carefully including drug interactions. Risk benefit ratio favors no change other than as noted in my dictated progress note. 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
[2018-05-26 05:50] VITALS: BP 148/82
[2018-05-26] MEDS: SERTRALINE 50 MG TABLET. PO SCH (07:48)
[2018-05-26] MEDS: QUEtiapine 25 MG TABLET. PO SCH (07:48)
--- NOTE | 2018-05-26 08:26 | NUR ---
Sue's discharge has been postponed due to agitation in the evenings. Meds continue to be adjusted and UA has been ordered. Call placed to Jessica, daughter, to inform. Message left with request for return phone call. Call placed to BURTON Hernandez at [facility], to inform. Mary was understanding and expressed she wants Sue to get the best start possible at [facility]. Call placed to Sukh at [facility] to cancel case picker that had been scheduled for this morning.
--- NOTE | 2018-05-26 09:38 | NUR ---
Behavior Intervention Response and Plan: BIRP Note: Behavior: Assumed Care of patient, patient located in Day Room at shift change. Patient exhibited the following behavior Calm, Disorganized, Social. Brief assessment on rounds of vital signs, medication needs, lab studies, and pain. Treatment plan problems . Intervention: Patient assessed and the following interventions initiated safety checks 15 Minute Checks Head to toe Assessment , Cognitive Assessment , Medications. Response: After interactions and interventions patient responded in the following manner, Able to Focus on Task , Non Compliant with Meds ,Resistive. Continue to assess behaviors and condition will continue to monitor throughout the shift as needed. Patient educated on ADL's, and hand hygiene. 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 Continue to assess patient for changes in above assessment. Monitor for medication needs, pain, and safety concerns. Hourly rounding performed to ensure safe environment. Jing KIM
--- NOTE | 2018-05-26 15:02 | NUR ---
1:1 with Sue this afternoon as she was taking part in the [facility] gathering. She is confused and expressed she does not know where she is at. Reassurance and support provided. She went on the reminisce about her spouse and their marriage. She misses him and hopes to one day see him again. Sue shared memories about her father as well.
[2018-05-26 16:37] VITALS: BP 97/62
[2018-05-26] MEDS: LORazepam 0.5 MG TABLET PO PRN (17:40)
--- NOTE | 2018-05-26 17:48 | NUR ---
PT became increasingly agitated. Crying and wanting to go to [facility]. PT resistant to take any medications. PT given medication in syringe PRN ativan per order. Jing KIM
[2018-05-26] MEDS: traZODone 50 MG TABLET. PO SCH ×2 (20:07)
--- NOTE | 2018-05-26 21:47 | NUR ---
Behavior Intervention Response and Plan: BIRP Note: Behavior: Assumed Care of patient, patient located in Hallway at shift change. Patient exhibited the following behavior Wandering, Calm, Cooperative. Brief assessment on rounds of vital signs, medication needs, lab studies, and pain. Treatment plan problems . Intervention: Patient assessed and the following interventions initiated safety checks 15 Minute Checks Personal Alarm in place , Cognitive Assessment , Head to toe Assessment. Response: After interactions and interventions patient responded in the following manner, Calm , Wandering ,Social. Continue to assess behaviors and condition will continue to monitor throughout the shift as needed. Patient educated on ADL's, and hand hygiene. 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 Continue to assess patient for changes in above assessment. Monitor for medication needs, pain, and safety concerns. Hourly rounding performed to ensure safe environment.
--- NOTE | 2018-05-26 22:10 | PN ---
DATE: 05/25/2018 PSYCHIATRIC PROGRESS NOTE This late entry 05/25/2018 covers elements not covered in my initial note. SUBJECTIVE: I met with the patient in the evening. The patient slept 6 hours previous evening. She has refused UA, we are persisting on trying to get it. She has not had marked aggression that she had a couple of evenings ago, but she does get more paranoid, agitated, confused in the evening. REVIEW OF SYSTEMS: No CV, , pulmonary, eye, ENT system symptoms on review. Reliability poor. MENTAL STATUS EXAM: Oriented to herself. Insight, judgment, recent and remote memory, attention, concentration, fund of knowledge poor, consistent with her diagnosis. IMPRESSION: Major neurocognitive disorder, Alzheimer, vascular with delusion, depression, behavioral disturbance; anxiety disorder, unspecified; impulse control disorder, unspecified. PLAN: Check a UA. Make sure she does not have a UTI accounting for her mood vacillation Continue current psychotropics, Seroquel 37.5 mg daily, trazodone 25 mg at bedtime, Ativan p.r.n., Zoloft initiated 50 mg a day. MAN Padmini RUFF MD DR: KATARZYNA/bibiana JOB#: [id number] / [id number]
--- NOTE | 2018-05-26 23:25 | PDOC ---
Exam Note: Edgar Note: Please also refer to the separate dictated note~for this date of service dictated separately.~Patient seen individually. Discussed the patient with Nursing staff reviewed the chart.~Reviewed interim history and current functioning. Reviewed vital signs,~Labs/ Radiology~and current medications noted below. Continue current treatment with the changes noted in the dictated addendum note Assessment: Vital Signs: Vital Signs Date Time Temp Pulse Resp B/P (MAP) Pulse Ox O2 Delivery O2 Flow Rate FiO2 05/26/18 16:37 98.0 80 16 97/62 (74) 96 05/25/18 16:07 Room Air I&O Intake and Output 05/26/18 07:00 Intake Total 960 ml Balance 960 ml Intake Oral 960 ml Current Medications: Meds: Current Medications Acetaminophen (Tylenol) 650 mg PRN Q6HRS PRN PO PAIN / TEMP Last administered on 05/24/18at 11:29; Start 05/13/18 at 02:30 Multi-Ingredient Ointment (Analgesic [place]) 1 vanesa PRN QID PRN TP MUSCLE PAIN; Start 05/13/18 at 02:30 Al Hydroxide/Mg Hydroxide (Mylanta Plus Xs) 15 ml PRN AFTMEALHC PRN PO DYSPEPSIA; Start 05/13/18 at 02:30 Magnesium Hydroxide (Milk Of Magnesia) 2,400 mg PRN QHS PRN PO CONSTIPATION Last administered on 05/18/18at 20:12; Start 05/13/18 at 02:30 Lorazepam (Ativan) 0.25 mg PRN Q6HRS PRN PO ANXIETY / AGITATION Last administered on 05/26/18at 17:40; Start 05/13/18 at 02:45 Lorazepam (Ativan) 1 mg DAILY IM Last administered on 05/18/18 15:11; Start 05/13/18 at 08:15; Stop 05/18/18 at 17:21; Status DC Haloperidol Lactate (Haldol) 5 mg DAILY IM Last administered on 05/18/18 15: 07; Start 05/13/18 at 08:15; Stop 05/18/18 at 17:21; Status DC Cyanocobalamin (Vitamin B-12) 1,000 mcg DAILY IM Last administered on at 13:52; Start 05/13/18 at 18:00; Stop 05/17/18 at 17:59; Status DC Cyanocobalamin (Vitamin B-12) 1,000 mcg WEEKLY IM Last administered on at 07:32; Start 05/20/18 at 09:00 Vitamin D (Vitamin D3) 50,000 unit WEEKLY PO ; Start 05/13/18 at 18:30; Stop 05/13/18 at 18:39; Status DC Vitamin D (Vitamin D3) 50,000 unit WEEKLY PO Last administered on 05/21/18at 08 :40; Start 05/14/18 at 09:00 Quetiapine Fumarate (SEROquel) 25 mg DAILY PO Last administered on 05/18/18at 07:50; Start 05/15/18 at 09:00; Stop 05/18/18 at 17:21; Status DC Trazodone HCl (Desyrel) 25 mg QHS PO Last administered on 05/26/18at 20:07; Start 05/17/18 at 21:00; Stop 05/26/18 at 21:00; Status DC Trazodone HCl (Desyrel) 25 mg PRN QHS PRN PO INSOMNIA; Start 05/17/18 at 18:00 Quetiapine Fumarate (SEROquel) 37.5 mg DAILY PO Last administered on at 07:48; Start 05/19/18 at 09:00 Sertraline HCl (Zoloft) 50 mg DAILY PO Last administered on 05/26/18at 07:48; Start 05/25/18 at 09:00; Stop 05/26/18 at 18:27; Status DC Olanzapine (ZyPREXA ZYDIS) 5 mg PRN Q2HR PRN PO PSYCHOSIS; Start 05/24/18 at 18:30; Stop 05/24/18 at 18:30; Status DC Olanzapine (ZyPREXA ZYDIS) 2.5 mg PRN Q2HR PRN PO PSYCHOSIS; Start 05/24/18 at 18:30 Trazodone HCl (Desyrel) 50 mg QHS PO Last administered on 05/26/18at 20:07; Start 05/26/18 at 21:00 Fluvoxamine Maleate (Luvox) 50 mg QHS PO Last administered on 05/26/18at 20:06 ; Start 05/26/18 at 21:00 Active Scripts Active Reported Remeron (Mirtazapine) 15 Mg Tablet 0.5 Tab PO QHS I have reviewed the current psychotropics carefully including drug interactions. Risk benefit ratio favors no change other than as noted in my dictated progress note. 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
[2018-05-27 05:43] VITALS: BP 152/85
[2018-05-27] MEDS: CYANOCOBALAMIN (VITAMIN B-12) 1,000 MCG/ML VIAL IM SCH ×2 (08:41→08:57)
[2018-05-27] MEDS: QUEtiapine 25 MG TABLET. PO SCH ×2 (08:41→08:57)
--- NOTE | 2018-05-27 13:05 | NUR ---
Assumed care of pt @ approx 0700. Pt was laying in bed awake at the time of our initial encounter. Pt A/O to self only. Pt has been very confused and anxious throughout the day, stating repeatedly, "I don't know what I'm supposed to do." This RN has attempted multiple times to reorient the pt to where she is and why, but she keeps talking about "You can't do this to me, I'm a [employer]." Pt refused his PO and IM meds this AM, even though we discussed this the other day and she was compliant w/meds then. I gave her the same talk that I gave her the other day re: the fact that I think God will understand that she needs this medication. She kept repeating that "God will heal me." Pt has been tearful off & on throughout this shift. She started becoming agitated in the Dining Room at lunch - PRN Zyprexa Zydis administered in ice cream, which she ate all of. Pt currently wandering the hallways with a steady gait. No needs voiced @ this time. Will continue to monitor and assist pt in working towards her treatment and discharge goals.
[2018-05-27 16:11] VITALS: BP 124/61
--- NOTE | 2018-05-27 17:07 | NUR ---
WEEKLY UPDATE: Pt is mostly calm during the day. She has exhibited some signs of anxiety and confusion but is redirectable. In the evenings, pt tends to be more aggressive and non-compliant. Pt at times takes her medication with coaxing; other times pt is adamant on refusing those medications. Pt does have a placement at [facility] in [place]. [facility] will look towards Thursday; SW to finalize discharge plans.
[2018-05-27] MEDS: traZODone 50 MG TABLET. PO SCH (20:30)
--- NOTE | 2018-05-27 21:03 | PN ---
DATE: 05/26/2018 PSYCHIATRIC PROGRESS NOTE This late entry 05/26/2018 covers elements not covered in my initial note. SUBJECTIVE: I met with the patient in the evening. The patient slept 8 hours previous night. The patient did well during the day with no outbursts, has been wandering, but at the time I saw her in the evening, she was extremely tearful, labile, paranoid, believed people were stealing from her, somewhat back to what was a day or 2 back with her behaviors. REVIEW OF SYSTEMS: No CV, , pulmonary, eye, ENT system symptoms on review. Reliability poor. MENTAL STATUS EXAM: Oriented to herself. Insight, judgment, recent and remote memory, attention, concentration, fund of knowledge poor, consistent with her diagnosis. IMPRESSION: Major neurocognitive disorder, Alzheimer, vascular with delusion, depression, behavioral disturbance. Rest unchanged from initial note. PLAN: Increase Seroquel from 37.5 to 50 mg at bedtime, change Zoloft to Luvox 50 mg at bedtime. Adjust further as clinically indicated. I feel the Luvox would be better for her obsessive thought processes, worsened by her dementia, delusions. MAN Padmini RUFF MD DR: KATARZYNA/bibiana JOB#: [id number] / [id number]
--- NOTE | 2018-05-27 23:13 | PDOC ---
Exam Note: Edgar Note: Please also refer to the separate dictated note~for this date of service dictated separately.~Patient seen individually. Discussed the patient with Nursing staff reviewed the chart.~Reviewed interim history and current functioning. Reviewed vital signs,~Labs/ Radiology~and current medications noted below. Continue current treatment with the changes noted in the dictated addendum note Assessment: Vital Signs: Vital Signs Date Time Temp Pulse Resp B/P (MAP) Pulse Ox O2 Delivery O2 Flow Rate FiO2 05/27/18 16:11 98.3 67 17 124/61 (82) 96 Room Air I&O Intake and Output 05/27/18 07:00 Intake Total 320 ml Balance 320 ml Intake Oral 320 ml # Bowel Movements 1 Current Medications: Meds: Current Medications Acetaminophen (Tylenol) 650 mg PRN Q6HRS PRN PO PAIN / TEMP Last administered on 05/24/18at 11:29; Start 05/13/18 at 02:30 Multi-Ingredient Ointment (Analgesic [place]) 1 vanesa PRN QID PRN TP MUSCLE PAIN; Start 05/13/18 at 02:30 Al Hydroxide/Mg Hydroxide (Mylanta Plus Xs) 15 ml PRN AFTMEALHC PRN PO DYSPEPSIA; Start 05/13/18 at 02:30 Magnesium Hydroxide (Milk Of Magnesia) 2,400 mg PRN QHS PRN PO CONSTIPATION Last administered on 05/18/18at 20:12; Start 05/13/18 at 02:30 Lorazepam (Ativan) 0.25 mg PRN Q6HRS PRN PO ANXIETY / AGITATION Last administered on 05/26/18at 17:40; Start 05/13/18 at 02:45 Lorazepam (Ativan) 1 mg DAILY IM Last administered on 05/18/18at 15:11; Start 05/13/18 at 08:15; Stop 05/18/18 at 17:21; Status DC Haloperidol Lactate (Haldol) 5 mg DAILY IM Last administered on 05/18/18at 15: 07; Start 05/13/18 at 08:15; Stop 05/18/18 at 17:21; Status DC Cyanocobalamin (Vitamin B-12) 1,000 mcg DAILY IM Last administered on at 13:52; Start 05/13/18 at 18:00; Stop 05/17/18 at 17:59; Status DC Cyanocobalamin (Vitamin B-12) 1,000 mcg WEEKLY IM Last administered on at 07:32; Start 05/20/18 at 09:00 Vitamin D (Vitamin D3) 50,000 unit WEEKLY PO ; Start 05/13/18 at 18:30; Stop 05/13/18 at 18:39; Status DC Vitamin D (Vitamin D3) 50,000 unit WEEKLY PO Last administered on 05/21/18at 08 :40; Start 05/14/18 at 09:00 Quetiapine Fumarate (SEROquel) 25 mg DAILY PO Last administered on 05/18/18at 07:50; Start 05/15/18 at 09:00; Stop 05/18/18 at 17:21; Status DC Trazodone HCl (Desyrel) 25 mg QHS PO Last administered on 05/26/18at 20:07; Start 05/17/18 at 21:00; Stop 05/26/18 at 21:00; Status DC Trazodone HCl (Desyrel) 25 mg PRN QHS PRN PO INSOMNIA; Start 05/17/18 at 18:00 Quetiapine Fumarate (SEROquel) 37.5 mg DAILY PO Last administered on at 07:48; Start 05/19/18 at 09:00 Sertraline HCl (Zoloft) 50 mg DAILY PO Last administered on 05/26/18at 07:48; Start 05/25/18 at 09:00; Stop 05/26/18 at 18:27; Status DC Olanzapine (ZyPREXA ZYDIS) 5 mg PRN Q2HR PRN PO PSYCHOSIS; Start 05/24/18 at 18:30; Stop 05/24/18 at 18:30; Status DC Olanzapine (ZyPREXA ZYDIS) 2.5 mg PRN Q2HR PRN PO PSYCHOSIS Last administered on 05/27/18at 12:19; Start 05/24/18 at 18:30 Trazodone HCl (Desyrel) 50 mg QHS PO Last administered on 05/27/18at 20:30; Start 05/26/18 at 21:00 Fluvoxamine Maleate (Luvox) 50 mg QHS PO Last administered on 05/27/18at 20:30; Start 05/26/18 at 21:00 Active Scripts Active Reported Remeron (Mirtazapine) 15 Mg Tablet 0.5 Tab PO QHS I have reviewed the current psychotropics carefully including drug interactions. Risk benefit ratio favors no change other than as noted in my dictated progress note. 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
--- NOTE | 2018-05-27 23:56 | NUR ---
Pt located in her room, sleeping at shift change. Resistant to medications and assessment, pushing this RN's hand away.
[2018-05-28 06:13] LABS: BILIRUBIN,URINE NEG (NEG); CLARITY,URINE CLEAR; COLOR,URINE YELLOW; GLUCOSE,URINE NEG (NEG); NITRITE,URINE NEG (NEG); RBC,URINE RARE /HPF (0-2); UROBILINOGEN,URINE 0.2 mg/dL (0.2 mg/dL)
[2018-05-28 06:14] LABS: BACTERIA,URINE FEW /HPF (0-FEW); SQUAMOUS EPITHELIAL CELL,UR FEW /LPF
[2018-05-28 06:23] VITALS: BP 155/81
--- NOTE | 2018-05-28 06:38 | NUR ---
Pt complaining of left arm pain, however pt will not take any medication because she's "not supposed to."
[2018-05-28 07:32] LABS: BASO # 0.1 x10^3/uL (0.0-0.2); BASO % 1 % (0-3); EOS # 0.2 x10^3/uL (0.0-0.7); EOS % 3 % (0-3); HEMATOCRIT 43.5 % (36.0-47.0); HEMOGLOBIN 14.6 g/dL (12.0-15.5); LYMPH # 2.3 x10^3/uL (1.0-4.8); LYMPH % 36 % (24-48); MEAN CORPUSCULAR HEMOGLOBIN 30 pg (25-35); MEAN CORPUSCULAR HGB CONC 34 g/dL (31-37); MEAN CORPUSCULAR VOLUME 89 fL (79-100); MONO # 0.4 x10^3/uL (0.0-1.1); MONO % 6 % (0-9); NEUT # 3.4 x10^3uL (1.8-7.7); NEUT % 54 % (31-73); PLATELET COUNT 207 x10^3/uL (140-400); RED BLOOD COUNT 4.89 x10^6/uL (3.50-5.40); RED CELL DISTRIBUTION WIDTH 12.9 % (11.5-14.5); WHITE BLOOD COUNT 6.3 x10^3/uL (4.0-11.0)
[2018-05-28 07:41] LABS: ALBUMIN 3.3 g/dL (3.4-5.0); ALBUMIN/GLOBULIN RATIO 0.9 (1.0-1.7); CALCIUM 9.5 mg/dL (8.5-10.1); CREATININE 0.9 mg/dL (0.6-1.0); GFR 59.8; POTASSIUM 3.8 mmol/L (3.5-5.1); TOTAL BILIRUBIN 0.6 mg/dL (0.2-1.0); TOTAL PROTEIN 7.1 g/dL (6.4-8.2)
[2018-05-28] MEDS: QUEtiapine 25 MG TABLET. PO SCH (09:00)
[2018-05-28] MEDS: CHOLECALCIFEROL (VITAMIN D3) 50,000 UNIT CAPSULE PO SCH (09:00)
--- NOTE | 2018-05-28 09:11 | NUR ---
Reviewed with Jessica, daughter, about tentative d/c date of 06/01/2018. Jessica indicated she would need transportation arranged as she will be working that day and her sister lives in [place]. Call placed to BURTON Hernandez, at [facility]. Left message informing Mary that tentative d/c date is 06/01/18 and that this worker will fax updated information on 05/31/18.
--- NOTE | 2018-05-28 13:55 | NUR ---
Assumed care of pt @ approx 0700. Pt was laying awake in her bed at the time of our initial encounter. Pt oriented to self only. No signs of hallucinations, delusions, or paranoia. However, she appears to be fixated on the [employer]. Has been refusing whole meds, so meds were given to her crushed and hidden in chocolate ice cream, which she ate all of. Denies pain. Pt has been up in the Day Room much of the day, fairly social. No needs voiced @ this time. Will continue to monitor and assist pt in working towards her treatment and discharge goals.
[2018-05-28 15:51] VITALS: BP 114/64
[2018-05-28] MEDS: traZODone 50 MG TABLET. PO SCH (20:34)
[2018-05-28] MEDS: PATCH REMOVAL. MC SCH (20:34)
--- NOTE | 2018-05-28 21:45 | PN ---
DATE: 05/27/2018 PSYCHIATRIC PROGRESS NOTE This late entry 05/27/2018 covers elements not covered in my initial note. SUBJECTIVE: I met with the patient in the evening and staffed at a treatment team meeting with the entire team in the morning. The patient slept 5-3/4 hours previous night, refusing her medications. She will be screened by [facility] for placement. REVIEW OF SYSTEMS: No CV, , pulmonary, eye, ENT system symptoms on review. Reliability poor. MENTAL STATUS EXAM: Oriented to herself. Insight, judgment, recent and remote memory, attention, concentration, fund of knowledge poor, consistent with her diagnosis mentioned in my initial note. IMPRESSION: Major neurocognitive disorder, Alzheimer, vascular with delusion, depression, behavioral disturbance. Rest unchanged. PLAN: No change from initial note. We will adjust the Luvox gradually as tolerated. MAN Padmini RUFF MD DR: KATARZYNA/bibiana JOB#: [id number] / [id number]
--- NOTE | 2018-05-28 23:09 | PDOC ---
Exam Note: Edgar Note: Please also refer to the separate dictated note~for this date of service dictated separately.~Patient seen individually. Discussed the patient with Nursing staff reviewed the chart.~Reviewed interim history and current functioning. Reviewed vital signs,~Labs/ Radiology~and current medications noted below. Continue current treatment with the changes noted in the dictated addendum note Assessment: Vital Signs: Vital Signs Date Time Temp Pulse Resp B/P (MAP) Pulse Ox O2 Delivery O2 Flow Rate FiO2 05/28/18 15:51 98.2 61 20 114/64 (81) 96 Room Air I&O Intake and Output 05/28/18 07:00 Intake Total 1440 ml Balance 1440 ml Intake Oral 1440 ml Labs: Laboratory Tests Test 05/28/18 06:00 05/28/18 06:46 Urine Collection Type Unknown Urine Color Yellow Urine Clarity Clear Urine pH 7.5 Urine Specific [place] 1.015 Urine Protein Neg (NEG-TRACE) Urine Glucose (UA) Neg mg/dL (NEG) Urine Ketones (Stick) Neg mg/dL (NEG) Urine Blood Neg (NEG) Urine Nitrite Neg (NEG) Urine Bilirubin Neg (NEG) Urine Urobilinogen Dipstick 0.2 mg/dL (0.2 mg/dL) Urine Leukocyte Esterase Trace (NEG) Urine RBC Rare /HPF (0-2) Urine WBC 1-4 /HPF (0-4) Urine Squamous Epithelial Cells Few /LPF Urine Bacteria Few /HPF (0-FEW) White Blood Count 6.3 x10^3/uL (4.0-11.0) Red Blood Count 4.89 x10^6/uL (3.50-5.40) Hemoglobin 14.6 g/dL (12.0-15.5) Hematocrit 43.5 % (36.0-47.0) Mean Corpuscular Volume 89 fL (79-100) Mean Corpuscular Hemoglobin 30 pg (25-35) Mean Corpuscular Hemoglobin Concent 34 g/dL (31-37) Red Cell Distribution Width 12.9 % (11.5-14.5) Platelet Count 207 x10^3/uL (140-400) Neutrophils (%) (Auto) 54 % (31-73) Lymphocytes (%) (Auto) 36 % (24-48) Monocytes (%) (Auto) 6 % (0-9) Eosinophils (%) (Auto) 3 % (0-3) Basophils (%) (Auto) 1 % (0-3) Neutrophils # (Auto) 3.4 x10^3uL (1.8-7.7) Lymphocytes # (Auto) 2.3 x10^3/uL (1.0-4.8) Monocytes # (Auto) 0.4 x10^3/uL (0.0-1.1) Eosinophils # (Auto) 0.2 x10^3/uL (0.0-0.7) Basophils # (Auto) 0.1 x10^3/uL (0.0-0.2) Sodium Level 138 mmol/L (136-145) Potassium Level 3.8 mmol/L (3.5-5.1) Chloride Level 103 mmol/L (98-107) Carbon Dioxide Level 29 mmol/L (21-32) Anion Gap 6 (6-14) Blood Urea Nitrogen 23 mg/dL (7-20) H Creatinine 0.9 mg/dL (0.6-1.0) Estimated GFR (Cockcroft-Gault) 59.8 BUN/Creatinine Ratio 26 (6-20) H Glucose Level 94 mg/dL (70-99) Calcium Level 9.5 mg/dL (8.5-10.1) Total Bilirubin 0.6 mg/dL (0.2-1.0) Aspartate Amino Transferase (AST) 16 U/L (15-37) Alanine Aminotransferase (ALT) 18 U/L (14-59) Alkaline Phosphatase 101 U/L (46-116) Total Protein 7.1 g/dL (6.4-8.2) Albumin 3.3 g/dL (3.4-5.0) L Albumin/Globulin Ratio 0.9 (1.0-1.7) L Current Medications: Meds: Current Medications Acetaminophen (Tylenol) 650 mg PRN Q6HRS PRN PO PAIN / TEMP Last administered on 05/24/18at 11:29; Start 05/13/18 at 02:30 Multi-Ingredient Ointment (Analgesic [place]) 1 vanesa PRN QID PRN TP MUSCLE PAIN; Start 05/13/18 at 02:30 Al Hydroxide/Mg Hydroxide (Mylanta Plus Xs) 15 ml PRN AFTMEALHC PRN PO DYSPEPSIA; Start 05/13/18 at 02:30 Magnesium Hydroxide (Milk Of Magnesia) 2,400 mg PRN QHS PRN PO CONSTIPATION Last administered on 05/18/18at 20:12; Start 05/13/18 at 02:30 Lorazepam (Ativan) 0.25 mg PRN Q6HRS PRN PO ANXIETY / AGITATION Last administered on 05/26/18 17:40; Start 05/13/18 at 02:45 Lorazepam (Ativan) 1 mg DAILY IM Last administered on 05/18/18at 15:11; Start 05/13/18 at 08:15; Stop 05/18/18 at 17:21; Status DC Haloperidol Lactate (Haldol) 5 mg DAILY IM Last administered on 05/18/18at 15: 07; Start 05/13/18 at 08:15; Stop 05/18/18 at 17:21; Status DC Cyanocobalamin (Vitamin B-12) 1,000 mcg DAILY IM Last administered on at 13:52; Start 05/13/18 at 18:00; Stop 05/17/18 at 17:59; Status DC Cyanocobalamin (Vitamin B-12) 1,000 mcg WEEKLY IM Last administered on at 07:32; Start 05/20/18 at 09:00 Vitamin D (Vitamin D3) 50,000 unit WEEKLY PO ; Start 05/13/18 at 18:30; Stop 05/13/18 at 18:39; Status DC Vitamin D (Vitamin D3) 50,000 unit WEEKLY PO Last administered on 05/28/18at 09: 00; Start 05/14/18 at 09:00 Quetiapine Fumarate (SEROquel) 25 mg DAILY PO Last administered on 05/18/18at 07:50; Start 05/15/18 at 09:00; Stop 05/18/18 at 17:21; Status DC Trazodone HCl (Desyrel) 25 mg QHS PO Last administered on 05/26/18at 20:07; Start 05/17/18 at 21:00; Stop 05/26/18 at 21:00; Status DC Trazodone HCl (Desyrel) 25 mg PRN QHS PRN PO INSOMNIA; Start 05/17/18 at 18:00 Quetiapine Fumarate (SEROquel) 37.5 mg DAILY PO Last administered on 05/28/18at 09:00; Start 05/19/18 at 09:00 Sertraline HCl (Zoloft) 50 mg DAILY PO Last administered on 05/26/18at 07:48; Start 05/25/18 at 09:00; Stop 05/26/18 at 18:27; Status DC Olanzapine (ZyPREXA ZYDIS) 5 mg PRN Q2HR PRN PO PSYCHOSIS; Start 05/24/18 at 18:30; Stop 05/24/18 at 18:30; Status DC Olanzapine (ZyPREXA ZYDIS) 2.5 mg PRN Q2HR PRN PO PSYCHOSIS Last administered on 05/27/18at 12:19; Start 05/24/18 at 18:30 Trazodone HCl (Desyrel) 50 mg QHS PO Last administered on 05/28/18at 20:34; Start 05/26/18 at 21:00 Fluvoxamine Maleate (Luvox) 50 mg QHS PO Last administered on 05/28/18at 20:34; Start 05/26/18 at 21:00 Lidocaine (Lidoderm) 1 patch DAILY TD ; Start 05/29/18 at 09:00 Miscellaneous (Lidoderm Patch Removal) 1 ea QHS MC Last administered on at 20:34; Start 05/28/18 at 21:00 Active Scripts Active Reported Remeron (Mirtazapine) 15 Mg Tablet 0.5 Tab PO QHS I have reviewed the current psychotropics carefully including drug interactions. Risk benefit ratio favors no change other than as noted in my dictated progress note. 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
--- NOTE | 2018-05-29 02:00 | NUR ---
Behavior Intervention Response and Plan: BIRP Note: Behavior: Assumed Care of patient, patient located in Day Room at shift change. Patient exhibited the following behavior Calm, Disorganized, Social. Brief assessment on rounds of vital signs, medication needs, lab studies, and pain. Treatment plan problems. Intervention: Patient assessed and the following interventions initiated safety checks 15 Minute Checks Head to toe Assessment, Cognitive Assessment , Medications. Response: After interactions and interventions patient responded in the following manner, Able to Focus on Task , Non Compliant with Meds, Resistive. Continue to assess behaviors and condition will continue to monitor throughout the shift as needed. Patient educated on ADL's, and hand hygiene. 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 Continue to assess patient for changes in above assessment. Monitor for medication needs, pain, and safety concerns. Hourly rounding performed to ensure safe environment.
[2018-05-29 06:06] VITALS: BP 136/75
[2018-05-29] MEDS: QUEtiapine 25 MG TABLET. PO SCH ×2 (08:12→08:42)
[2018-05-29] MEDS: LIDOCAINE (700MG/PATCH) PATCH. TD SCH ×2 (08:27→08:42)
--- NOTE | 2018-05-29 08:44 | NUR ---
This nurse went to administer morning medications to pt, pt refused meds stating, "I am a [employer] and I do not take medications, this is the [place] and I don't have to go see a doctor if I don't want to." This nurse explained to the pt that she was in the hospital and the medication was necessary. Pt still refusing to take medications and becoming tearful. Will attempt again later. Will CTM.
[2018-05-29 15:56] VITALS: BP 179/82
--- NOTE | 2018-05-29 16:29 | NUR ---
Pt is extremely upset and anxious, pt pacing the hallways and stating that she doesn't belong here, she just wants to and that this isn't right that she's here against her will. Pt educated on where she is and the reason behind it. Pt still upset and throwing things on the floor. Pt administered PRN and offered ice cream, as well. Pt still upset in the hallway stating "they took my rings, how dare they, they just can't take people's things." Will CTM.
[2018-05-29] MEDS: LORazepam 0.5 MG TABLET PO PRN (16:31)
--- NOTE | 2018-05-29 16:55 | NUR ---
Pt becoming more aggressive and upset, screaming. Pt put in the locked hallway. Pt banging on the windows screaming, "Hitler! This is how a war is started, you take and take and take!" Pt repeatedly throwing her ice cream cup at the window and banging on the window screaming.
[2018-05-29] MEDS: traZODone 50 MG TABLET. PO SCH (20:01)
[2018-05-29] MEDS: PATCH REMOVAL. MC SCH (21:00)
--- NOTE | 2018-05-29 23:12 | PDOC ---
Exam Note: Edgar Note: Please also refer to the separate dictated note~for this date of service dictated separately.~Patient seen individually. Discussed the patient with Nursing staff reviewed the chart.~Reviewed interim history and current functioning. Reviewed vital signs,~Labs/ Radiology~and current medications noted below. Continue current treatment with the changes noted in the dictated addendum note Assessment: Vital Signs: Vital Signs Date Time Temp Pulse Resp B/P (MAP) Pulse Ox O2 Delivery O2 Flow Rate FiO2 05/29/18 15:56 98.0 66 18 179/82 (114) 97 Room Air I&O Intake and Output 05/29/18 07:00 Intake Total 960 ml Balance 960 ml Intake Oral 960 ml # Voids 3 Current Medications: Meds: Current Medications Acetaminophen (Tylenol) 650 mg PRN Q6HRS PRN PO PAIN / TEMP Last administered on 05/24/18at 11:29; Start 05/13/18 at 02:30 Multi-Ingredient Ointment (Analgesic [place]) 1 vanesa PRN QID PRN TP MUSCLE PAIN; Start 05/13/18 at 02:30 Al Hydroxide/Mg Hydroxide (Mylanta Plus Xs) 15 ml PRN AFTMEALHC PRN PO DYSPEPSIA; Start 05/13/18 at 02:30 Magnesium Hydroxide (Milk Of Magnesia) 2,400 mg PRN QHS PRN PO CONSTIPATION Last administered on 05/18/18at 20:12; Start 05/13/18 at 02:30 Lorazepam (Ativan) 0.25 mg PRN Q6HRS PRN PO ANXIETY / AGITATION Last administered on 05/29/18at 16:31; Start 05/13/18 at 02:45 Lorazepam (Ativan) 1 mg DAILY IM Last administered on 05/18/18 15:11; Start 05/13/18 at 08:15; Stop 05/18/18 at 17:21; Status DC Haloperidol Lactate (Haldol) 5 mg DAILY IM Last administered on 05/18/18at 15: 07; Start 05/13/18 at 08:15; Stop 05/18/18 at 17:21; Status DC Cyanocobalamin (Vitamin B-12) 1,000 mcg DAILY IM Last administered on at 13:52; Start 05/13/18 at 18:00; Stop 05/17/18 at 17:59; Status DC Cyanocobalamin (Vitamin B-12) 1,000 mcg WEEKLY IM Last administered on at 07:32; Start 05/20/18 at 09:00 Vitamin D (Vitamin D3) 50,000 unit WEEKLY PO ; Start 05/13/18 at 18:30; Stop 05/13/18 at 18:39; Status DC Vitamin D (Vitamin D3) 50,000 unit WEEKLY PO Last administered on 05/28/18at 09: 00; Start 05/14/18 at 09:00 Quetiapine Fumarate (SEROquel) 25 mg DAILY PO Last administered on 05/18/18at 07:50; Start 05/15/18 at 09:00; Stop 05/18/18 at 17:21; Status DC Trazodone HCl (Desyrel) 25 mg QHS PO Last administered on 05/26/18at 20:07; Start 05/17/18 at 21:00; Stop 05/26/18 at 21:00; Status DC Trazodone HCl (Desyrel) 25 mg PRN QHS PRN PO INSOMNIA; Start 05/17/18 at 18:00 Quetiapine Fumarate (SEROquel) 37.5 mg DAILY PO Last administered on 05/28/18at 09:00; Start 05/19/18 at 09:00; Stop 05/29/18 at 18:44; Status DC Sertraline HCl (Zoloft) 50 mg DAILY PO Last administered on 05/26/18at 07:48; Start 05/25/18 at 09:00; Stop 05/26/18 at 18:27; Status DC Olanzapine (ZyPREXA ZYDIS) 5 mg PRN Q2HR PRN PO PSYCHOSIS; Start 05/24/18 at 18:30; Stop 05/24/18 at 18:30; Status DC Olanzapine (ZyPREXA ZYDIS) 2.5 mg PRN Q2HR PRN PO PSYCHOSIS Last administered on 05/27/18at 12:19; Start 05/24/18 at 18:30 Trazodone HCl (Desyrel) 50 mg QHS PO Last administered on 05/29/18at 20:01; Start 05/26/18 at 21:00 Fluvoxamine Maleate (Luvox) 50 mg QHS PO Last administered on 05/29/18at 20:01; Start 05/26/18 at 21:00 Lidocaine (Lidoderm) 1 patch DAILY TD ; Start 05/29/18 at 09:00 Miscellaneous (Lidoderm Patch Removal) 1 ea QHS MC Last administered on at 20:34; Start 05/28/18 at 21:00 Quetiapine Fumarate (SEROquel) 50 mg DAILY PO ; Start 05/30/18 at 09:00 Active Scripts Active Reported Remeron (Mirtazapine) 15 Mg Tablet 0.5 Tab PO QHS I have reviewed the current psychotropics carefully including drug interactions. Risk benefit ratio favors no change other than as noted in my dictated progress note. 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
--- NOTE | 2018-05-30 01:02 | NUR ---
Pt wandering unit this evening, asking for a [facility] Redirection unsuccessful and pt was becoming more anxious. HS medications crushed and administered via syringe. Pt later went to bed without incident.
--- NOTE | 2018-05-30 06:03 | NUR ---
Pt woke up in the middle of the night anxious and looking for her . Pt redirected numerous times back to bed, however pt continued to be restless so she was taken to the dayroom. Pt eventually calmed down on her own and was able to fall back asleep in her bed without any PRN medication.
[2018-05-30 06:11] VITALS: BP 111/75
[2018-05-30] MEDS: LIDOCAINE (700MG/PATCH) PATCH. TD SCH (08:29)
[2018-05-30] MEDS: QUEtiapine 50 MG TABLET. PO SCH (08:29)
--- NOTE | 2018-05-30 15:39 | NUR ---
Patient has been calm and compliant this shift. Medication crushed in pudding. Patient has been wandering the hallways, participating in group. Pleasantly confused. Will continue to monitor.
[2018-05-30 15:51] VITALS: BP 94/57
--- NOTE | 2018-05-30 16:33 | PN ---
DATE: 05/28/2018 This is a late entry for date of service 05/28/2018 and covers elements not covered in my initial note. SUBJECTIVE: I met with the patient in the evening. The patient slept 7-1/2 hours previous night. She has been less anxious, very confused, trying to sneak out her meds. Meds were given in chocolate ice cream. REVIEW OF SYSTEMS: No CV, , pulmonary, eye, ENT system symptoms on review. Reliability poor. She gets more confused, paranoid in the evening with sundowning. MENTAL STATUS EXAM: Oriented to herself. Insight, judgment, recent and remote memory, attention, concentration, fund of knowledge poor, consistent with her diagnosis as mentioned in my initial note. PLAN: No change from initial note. Continue Seroquel, which we may need to increase. Maintain trazodone, Ativan p.r.n., Luvox and Zyprexa p.r.n. KHRIS RUFF MD DR: KATARZYNA/bibiana JOB#: [id number] / [id number]
[2018-05-30] MEDS: traZODone 50 MG TABLET. PO SCH (20:34)
[2018-05-30] MEDS: PATCH REMOVAL. MC SCH (20:35)
--- NOTE | 2018-05-30 23:06 | PDOC ---
Exam Note: Edgar Note: Please also refer to the separate dictated note~for this date of service dictated separately.~Patient seen individually. Discussed the patient with Nursing staff reviewed the chart.~Reviewed interim history and current functioning. Reviewed vital signs,~Labs/ Radiology~and current medications noted below. Continue current treatment with the changes noted in the dictated addendum note Assessment: Vital Signs: Vital Signs Date Time Temp Pulse Resp B/P (MAP) Pulse Ox O2 Delivery O2 Flow Rate FiO2 05/30/18 15:51 97.7 76 18 94/57 (69) 99 Room Air I&O Intake and Output 05/30/18 07:00 Intake Total 960 ml Balance 960 ml Intake Oral 960 ml # Bowel Movements 1 Current Medications: Meds: Current Medications Acetaminophen (Tylenol) 650 mg PRN Q6HRS PRN PO PAIN / TEMP Last administered on 05/24/18at 11:29; Start 05/13/18 at 02:30 Multi-Ingredient Ointment (Analgesic [place]) 1 vanesa PRN QID PRN TP MUSCLE PAIN; Start 05/13/18 at 02:30 Al Hydroxide/Mg Hydroxide (Mylanta Plus Xs) 15 ml PRN AFTMEALHC PRN PO DYSPEPSIA; Start 05/13/18 at 02:30 Magnesium Hydroxide (Milk Of Magnesia) 2,400 mg PRN QHS PRN PO CONSTIPATION Last administered on 05/18/18at 20:12; Start 05/13/18 at 02:30 Lorazepam (Ativan) 0.25 mg PRN Q6HRS PRN PO ANXIETY / AGITATION Last administered on 05/29/18at 16:31; Start 05/13/18 at 02:45 Lorazepam (Ativan) 1 mg DAILY IM Last administered on 05/18/18 15:11; Start 05/13/18 at 08:15; Stop 05/18/18 at 17:21; Status DC Haloperidol Lactate (Haldol) 5 mg DAILY IM Last administered on 05/18/18 15: 07; Start 05/13/18 at 08:15; Stop 05/18/18 at 17:21; Status DC Cyanocobalamin (Vitamin B-12) 1,000 mcg DAILY IM Last administered on at 13:52; Start 05/13/18 at 18:00; Stop 05/17/18 at 17:59; Status DC Cyanocobalamin (Vitamin B-12) 1,000 mcg WEEKLY IM Last administered on at 07:32; Start 05/20/18 at 09:00 Vitamin D (Vitamin D3) 50,000 unit WEEKLY PO ; Start 05/13/18 at 18:30; Stop 05/13/18 at 18:39; Status DC Vitamin D (Vitamin D3) 50,000 unit WEEKLY PO Last administered on 05/28/18at 09: 00; Start 05/14/18 at 09:00 Quetiapine Fumarate (SEROquel) 25 mg DAILY PO Last administered on 05/18/18at 07:50; Start 05/15/18 at 09:00; Stop 05/18/18 at 17:21; Status DC Trazodone HCl (Desyrel) 25 mg QHS PO Last administered on 05/26/18at 20:07; Start 05/17/18 at 21:00; Stop 05/26/18 at 21:00; Status DC Trazodone HCl (Desyrel) 25 mg PRN QHS PRN PO INSOMNIA; Start 05/17/18 at 18:00 Quetiapine Fumarate (SEROquel) 37.5 mg DAILY PO Last administered on 05/28/18at 09:00; Start 05/19/18 at 09:00; Stop 05/29/18 at 18:44; Status DC Sertraline HCl (Zoloft) 50 mg DAILY PO Last administered on 05/26/18at 07:48; Start 05/25/18 at 09:00; Stop 05/26/18 at 18:27; Status DC Olanzapine (ZyPREXA ZYDIS) 5 mg PRN Q2HR PRN PO PSYCHOSIS; Start 05/24/18 at 18:30; Stop 05/24/18 at 18:30; Status DC Olanzapine (ZyPREXA ZYDIS) 2.5 mg PRN Q2HR PRN PO PSYCHOSIS Last administered on 05/27/18at 12:19; Start 05/24/18 at 18:30 Trazodone HCl (Desyrel) 50 mg QHS PO Last administered on 05/30/18at 20:34; Start 05/26/18 at 21:00 Fluvoxamine Maleate (Luvox) 50 mg QHS PO Last administered on 05/30/18 20:34; Start 05/26/18 at 21:00 Lidocaine (Lidoderm) 1 patch DAILY TD Last administered on 05/30/18 08:29; Start 05/29/18 at 09:00 Miscellaneous (Lidoderm Patch Removal) 1 ea QHS MC Last administered on 20:35; Start 05/28/18 at 21:00 Quetiapine Fumarate (SEROquel) 50 mg DAILY PO Last administered on 05/30/18 08 :29; Start 05/30/18 at 09:00 Active Scripts Active Reported Remeron (Mirtazapine) 15 Mg Tablet 0.5 Tab PO QHS I have reviewed the current psychotropics carefully including drug interactions. Risk benefit ratio favors no change other than as noted in my dictated progress note. 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
--- NOTE | 2018-05-30 23:42 | NUR ---
Pt was in bed resting at shift change. HS medications administered via syringe. Pt continues to be anxious and confused, stating she needs to leave and find her .
--- NOTE | 2018-05-31 05:56 | NUR ---
Pt became very agitated and combative when approached for vital signs. Pt started yelling and attempted to hit staff. Pt taken to the [facility] for de-escalation.
[2018-05-31] MEDS: QUEtiapine 50 MG TABLET. PO SCH (07:45)
[2018-05-31] MEDS: LIDOCAINE (700MG/PATCH) PATCH. TD SCH (07:46)
--- NOTE | 2018-05-31 13:26 | NUR ---
Updated BURTON Hernandez at [facility], that tentative d/c date at this time is 06/03/18 due to Sue's fluctuating periods of aggression. Call placed to Jessica, daughter, and message left to inform of the above.
[2018-05-31 15:12] VITALS: BP 119/73
[2018-05-31] MEDS: LORazepam 0.5 MG TABLET PO PRN (17:05)
--- NOTE | 2018-05-31 18:15 | NUR ---
Patient became very upset after dinner, she didn't understand why she was here and that there is nothing wrong for her to be in a hospital. Patient started crying hysterically. PRN Lorazepam administered with no results. Patient was in the day room, when she stated, " Well if no one here is a [employer] Super[employer] I might as well kill myself" Staff redirected patient out of day room to calm down. Patient continued to scream and cry. [facility] patient stated " Why don't you guys just take a knife and stab me, just kill me now". PRN Zyprexa administered. Patient continues to cry and yell, will continue to monitor.
[2018-05-31] MEDS: traZODone 50 MG TABLET. PO SCH (19:21)
--- NOTE | 2018-05-31 19:40 | PN ---
DATE: 05/29/2018 PSYCHIATRIC PROGRESS NOTE This late entry 05/29/2018 covers elements not covered in my initial note. SUBJECTIVE: I met with the patient in the evening. The patient slept 7-1/4 hours previous night. She has had a difficult day with a labile mood, screaming, banging on the nursing window, had to be placed in the best hallway, stating nursing staffs were Hitler. Refusing her Seroquel and I have advised this be given any time of the day she takes it. REVIEW OF SYSTEMS: No CV, , pulmonary, eye, ENT system symptoms on review. Reliability poor. MENTAL STATUS EXAM: Oriented to herself. Insight, judgment, recent and remote memory, attention, concentration, fund of knowledge poor, consistent with her diagnosis mentioned in my initial note. IMPRESSION: Major neurocognitive disorder, Alzheimer, vascular with delusion, depression, behavioral disturbance; anxiety disorder, unspecified; impulse control disorder, unspecified. PLAN: Continue psychotropics from initial note, increase Seroquel from 37.5 to mg a day. Rest unchanged from initial note. MAN Padmini RUFF MD DR: KATARZYNA/bibiana JOB#: [id number] / [id number]
[2018-05-31] MEDS: PATCH REMOVAL. MC SCH (20:10)
--- NOTE | 2018-05-31 23:10 | PDOC ---
Exam Note: Edgar Note: Please also refer to the separate dictated note~for this date of service dictated separately.~Patient seen individually. Discussed the patient with Nursing staff reviewed the chart.~Reviewed interim history and current functioning. Reviewed vital signs,~Labs/ Radiology~and current medications noted below. Continue current treatment with the changes noted in the dictated addendum note Assessment: Vital Signs: Vital Signs Date Time Temp Pulse Resp B/P (MAP) Pulse Ox O2 Delivery O2 Flow Rate FiO2 05/31/18 15:12 98.6 64 18 119/73 (88) 98 Room Air I&O Intake and Output 05/31/18 07:00 Intake Total 800 ml Balance 800 ml Intake Oral 800 ml Current Medications: Meds: Current Medications Acetaminophen (Tylenol) 650 mg PRN Q6HRS PRN PO PAIN / TEMP Last administered on 05/24/18at 11:29; Start 05/13/18 at 02:30 Multi-Ingredient Ointment (Analgesic [place]) 1 vanesa PRN QID PRN TP MUSCLE PAIN; Start 05/13/18 at 02:30 Al Hydroxide/Mg Hydroxide (Mylanta Plus Xs) 15 ml PRN AFTMEALHC PRN PO DYSPEPSIA; Start 05/13/18 at 02:30 Magnesium Hydroxide (Milk Of Magnesia) 2,400 mg PRN QHS PRN PO CONSTIPATION Last administered on 05/18/18at 20:12; Start 05/13/18 at 02:30 Lorazepam (Ativan) 0.25 mg PRN Q6HRS PRN PO ANXIETY / AGITATION Last administered on 05/31/18at 17:05; Start 05/13/18 at 02:45 Lorazepam (Ativan) 1 mg DAILY IM Last administered on 05/18/18at 15:11; Start 05/13/18 at 08:15; Stop 05/18/18 at 17:21; Status DC Haloperidol Lactate (Haldol) 5 mg DAILY IM Last administered on 05/18/18at 15: 07; Start 05/13/18 at 08:15; Stop 05/18/18 at 17:21; Status DC Cyanocobalamin (Vitamin B-12) 1,000 mcg DAILY IM Last administered on at 13:52; Start 05/13/18 at 18:00; Stop 05/17/18 at 17:59; Status DC Cyanocobalamin (Vitamin B-12) 1,000 mcg WEEKLY IM Last administered on at 07:32; Start 05/20/18 at 09:00 Vitamin D (Vitamin D3) 50,000 unit WEEKLY PO ; Start 05/13/18 at 18:30; Stop 05/13/18 at 18:39; Status DC Vitamin D (Vitamin D3) 50,000 unit WEEKLY PO Last administered on 05/28/18at 09: 00; Start 05/14/18 at 09:00 Quetiapine Fumarate (SEROquel) 25 mg DAILY PO Last administered on 05/18/18at 07:50; Start 05/15/18 at 09:00; Stop 05/18/18 at 17:21; Status DC Trazodone HCl (Desyrel) 25 mg QHS PO Last administered on 05/26/18at 20:07; Start 05/17/18 at 21:00; Stop 05/26/18 at 21:00; Status DC Trazodone HCl (Desyrel) 25 mg PRN QHS PRN PO INSOMNIA; Start 05/17/18 at 18:00 Quetiapine Fumarate (SEROquel) 37.5 mg DAILY PO Last administered on 05/28/18at 09:00; Start 05/19/18 at 09:00; Stop 05/29/18 at 18:44; Status DC Sertraline HCl (Zoloft) 50 mg DAILY PO Last administered on 05/26/18at 07:48; Start 05/25/18 at 09:00; Stop 05/26/18 at 18:27; Status DC Olanzapine (ZyPREXA ZYDIS) 5 mg PRN Q2HR PRN PO PSYCHOSIS; Start 05/24/18 at 18:30; Stop 05/24/18 at 18:30; Status DC Olanzapine (ZyPREXA ZYDIS) 2.5 mg PRN Q2HR PRN PO PSYCHOSIS Last administered on 05/31/18at 17:49; Start 05/24/18 at 18:30 Trazodone HCl (Desyrel) 50 mg QHS PO Last administered on 05/31/18at 19:21; Start 05/26/18 at 21:00 Fluvoxamine Maleate (Luvox) 50 mg QHS PO Last administered on 05/30/18 20:34; Start 05/26/18 at 21:00; Stop 05/31/18 at 16:27; Status DC Lidocaine (Lidoderm) 1 patch DAILY TD Last administered on 05/31/18at 07:46; Start 05/29/18 at 09:00 Miscellaneous (Lidoderm Patch Removal) 1 ea QHS MC Last administered on 20:10; Start 05/28/18 at 21:00 Quetiapine Fumarate (SEROquel) 50 mg DAILY PO Last administered on 05/31/18at 07 :45; Start 05/30/18 at 09:00 Fluvoxamine Maleate (Luvox) 75 mg QHS PO Last administered on 05/31/18 19:22; Start 05/31/18 at 21:00 Quetiapine Fumarate (SEROquel) 25 mg 1500 PO ; Start 06/01/18 at 15:00 Olanzapine (ZyPREXA ZYDIS) 5 mg 1X ONCE PO Last administered on 05/31/18at 19: 33; Start 05/31/18 at 19:30; Stop 05/31/18 at 19:31; Status DC Active Scripts Active Reported Remeron (Mirtazapine) 15 Mg Tablet 0.5 Tab PO QHS I have reviewed the current psychotropics carefully including drug interactions. Risk benefit ratio favors no change other than as noted in my dictated progress note. 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
--- NOTE | 2018-05-31 23:50 | NUR ---
Pt [place] at shift change. Pt very agitated and restless. Pt pacing, banging on the doors and windows of the nurses station and screaming at the top of her lungs. Pt combative when approached. Pt yelling statements such as "you might as well kill me" and "just kill me now." Dr. Darío brown. Received order for Zyprexa Zydis 5mg x1. PRN medication and HS medications administered sublingually. Pt eventually calmed down and was able to sit in the dayroom for an evening snack.
--- NOTE | 2018-06-01 00:32 | PN ---
DATE: 05/30/2018 This is a late entry for 05/30/2018 covers elements not covered in my initial note. SUBJECTIVE: I met with the patient in the evening. The patient slept 6-1/2 hours previous night. She continues to be somewhat erratic in her behaviors, wandering, anxious. Meds had to be syringed. REVIEW OF SYSTEMS: No CV, , pulmonary, eye, ENT system symptoms on review. Reliability poor. MENTAL STATUS EXAM: Oriented to herself. Insight, judgment, recent and remote memory, attention, concentration, fund of knowledge poor, consistent with her diagnosis. IMPRESSION: Major neurocognitive disorder, Alzheimer, vascular with delusion, depression, behavioral disturbance. Rest unchanged. PLAN: Continue psychotropics from initial note. May need to increase Luvox for her OCD symptoms. MAN Padmini RUFF MD DR: KATARZYNA/bibiana JOB#: [id number] / [id number]
[2018-06-01 06:22] VITALS: BP 128/76
[2018-06-01] MEDS: LIDOCAINE (700MG/PATCH) PATCH. TD SCH (10:09)
[2018-06-01] MEDS: QUEtiapine 50 MG TABLET. PO SCH (12:40)
[2018-06-01] MEDS: LORazepam 0.5 MG TABLET PO PRN (12:40)
--- NOTE | 2018-06-01 14:49 | PN ---
DATE: 05/31/2018 PSYCHIATRIC PROGRESS NOTE This late entry 05/31/2018 covers elements not covered in my initial note. SUBJECTIVE: I met with the patient on the evening of 05/31/2018. The patient has had a very difficult day. She was noted by nursing staff to be "feisty" in the morning. She was physically hitting staff, aggressive, but later in the day, she was better. Medications have to be hidden. By the late evening, she was once again yelling, screaming, crying, tearful, verbally aggressive, labile, had to be placed in the [facility], paranoid with owning. REVIEW OF SYSTEMS: No CV, , pulmonary, eye, ENT system symptoms on review. Reliability poor. MENTAL STATUS EXAM: Oriented to herself. Insight, judgment, recent and remote memory, attention, concentration, fund of knowledge poor, consistent with her diagnosis mentioned in my initial note. IMPRESSION: Major neurocognitive disorder, Alzheimer, vascular with delusion, depression, behavioral disturbance. Rest unchanged. PLAN: Increase Luvox from 50 at bedtime to 75 at bedtime after she has been on 50 for 3 days. Maintain trazodone along with Zyprexa p.r.n., Ativan p.r.n., Seroquel 50 mg at bedtime. KHRIS RUFF MD DR: KATARZYNA/bibiana JOB#: [id number] / [id number]
[2018-06-01 16:12] VITALS: BP 117/71
[2018-06-01] MEDS: QUEtiapine 25 MG TABLET. PO SCH (17:03)
--- NOTE | 2018-06-01 17:50 | NUR ---
Patient has been calm, cooperative and appropriate. Medications crushed in food. No negative moods or behaviors observed thus far. Patient was pleasantly confused this shift wandering the hallways. Will continue to monitor.
[2018-06-01] MEDS: traZODone 50 MG TABLET. PO SCH (21:00)
[2018-06-01] MEDS: PATCH REMOVAL. MC SCH (21:00)
--- NOTE | 2018-06-02 01:34 | NUR ---
Nursing Note The patient was calm and cooperative with cares this shift. The patient was sleeping for most of the shift and is currently located in her room sleeping.
[2018-06-02 05:55] VITALS: BP 137/88
[2018-06-02] MEDS: QUEtiapine 50 MG TABLET. PO SCH (09:44)
[2018-06-02] MEDS: LIDOCAINE (700MG/PATCH) PATCH. TD SCH (09:45)
--- NOTE | 2018-06-02 11:21 | NUR ---
Behavior Intervention Response and Plan: BIRP Note: Behavior: Assumed Care of patient, patient located in Day Room at shift change. Patient exhibited the following behavior Calm, Disorganized, Social. Brief assessment on rounds of vital signs, medication needs, lab studies, and pain. Treatment plan problems. Intervention: Patient assessed and the following interventions initiated safety checks 15 Minute Checks Head to toe Assessment, Cognitive Assessment , Medications. Response: After interactions and interventions patient responded in the following manner, interactive , calm, Resistive. Continue to assess behaviors and condition will continue to monitor throughout the shift as needed. Patient educated on ADL's, and hand hygiene. Plan: Continue to monitor Master Treatment Plan for patient's progress toward short term goals of Improved Mood, Medication Compliance, assisted goals to return to previous living setting vs placement. Continue to assess patient for changes in above assessment. Monitor for medication needs, pain, and safety concerns. Hourly rounding performed to ensure safe environment.
--- NOTE | 2018-06-02 13:13 | NUR ---
D/C placed on hold until 06/07/18. Reviewed with [facility], Ifrah daughter, and left message for Jessica (daughter).
[2018-06-02] MEDS: QUEtiapine 25 MG TABLET. PO SCH (15:17)
[2018-06-02 16:39] VITALS: BP 128/87
[2018-06-02] MEDS: LORazepam 0.5 MG TABLET PO PRN (18:06)
[2018-06-02] MEDS: traZODone 50 MG TABLET. PO SCH (19:17)
[2018-06-02] MEDS: PATCH REMOVAL. MC SCH (19:36)
--- NOTE | 2018-06-02 19:45 | PN ---
DATE: 06/01/2018 PSYCHIATRIC PROGRESS NOTE This late entry 06/01/2018 covers elements not covered in my initial note. SUBJECTIVE: I met with the patient in the evening. The patient slept 6 hours previous evening. Previous night, she was agitated, quite labile, anxious, yelling. Nursing staff had called me, we increased Zyprexa to 5 mg dosage. Today, she received at 11:00 a.m. Seroquel and then at 4:00 p.m., and did a little better with some improved mood lability. Nursing staff had called me the previous night since the lower dosage of Zyprexa was not working. REVIEW OF SYSTEMS: No CV, , pulmonary, eye, ENT system symptoms on review. Reliability poor. MENTAL STATUS EXAM: Oriented to herself. Insight, judgment, recent and remote memory, attention, concentration, fund of knowledge poor, consistent with her diagnosis mentioned in my initial note. IMPRESSION: Major neurocognitive disorder, Alzheimer, vascular with delusion, depression, behavioral disturbance; anxiety disorder, unspecified; impulse control disorder, unspecified. PLAN: Continue psychotropics mentioned in my initial note including the increased Seroquel. Adjust further as clinically indicated. KHRIS RUFF MD DR: KATARZYNA/bibiana JOB#: [id number] / [id number]
--- NOTE | 2018-06-02 22:45 | PDOC ---
Exam Note: Edgar Note: Late entry for DOS 06/01/2018. Please also refer to the separate dictated note~ for this date of service dictated separately.~Patient seen individually. Discussed the patient with Nursing staff reviewed the chart.~Reviewed interim history and current functioning. Reviewed vital signs,~Labs/ Radiology~and current medications noted below. Continue current treatment with the changes noted in the dictated addendum note Assessment: Vital Signs: VS - Last 72 Hours, by Label Date Time Temp Pulse Resp B/P (MAP) Pulse Ox O2 Delivery O2 Flow Rate FiO2 06/02/18 16:39 98.3 71 18 128/87 (101) 96 06/02/18 05:55 97.0 64 18 137/88 (104) 94 06/01/18 16:12 98.1 61 17 117/71 (86) 96 Room Air 06/01/18 06:22 98.0 62 18 128/76 (93) 96 Room Air 05/31/18 15:12 98.6 64 18 119/73 (88) 98 Room Air Vital Signs Date Time Temp Pulse Resp B/P (MAP) Pulse Ox O2 Delivery O2 Flow Rate FiO2 06/02/18 16:39 98.3 71 18 128/87 (101) 96 06/01/18 16:12 Room Air I&O Intake and Output 06/02/18 07:00 Intake Total 480 ml Balance 480 ml Intake Oral 480 ml Current Medications: Meds: Current Medications Acetaminophen (Tylenol) 650 mg PRN Q6HRS PRN PO PAIN / TEMP Last administered on 05/24/18at 11:29; Start 05/13/18 at 02:30 Multi-Ingredient Ointment (Analgesic [place]) 1 vanesa PRN QID PRN TP MUSCLE PAIN; Start 05/13/18 at 02:30 Al Hydroxide/Mg Hydroxide (Mylanta Plus Xs) 15 ml PRN AFTMEALHC PRN PO DYSPEPSIA; Start 05/13/18 at 02:30 Magnesium Hydroxide (Milk Of Magnesia) 2,400 mg PRN QHS PRN PO CONSTIPATION Last administered on 05/18/18at 20:12; Start 05/13/18 at 02:30 Lorazepam (Ativan) 0.25 mg PRN Q6HRS PRN PO ANXIETY / AGITATION Last administered on 06/02/18at 18:06; Start 05/13/18 at 02:45 Lorazepam (Ativan) 1 mg DAILY IM Last administered on 05/18/18at 15:11; Start 05/13/18 at 08:15; Stop 05/18/18 at 17:21; Status DC Haloperidol Lactate (Haldol) 5 mg DAILY IM Last administered on 05/18/18at 15: 07; Start 05/13/18 at 08:15; Stop 05/18/18 at 17:21; Status DC Cyanocobalamin (Vitamin B-12) 1,000 mcg DAILY IM Last administered on at 13:52; Start 05/13/18 at 18:00; Stop 05/17/18 at 17:59; Status DC Cyanocobalamin (Vitamin B-12) 1,000 mcg WEEKLY IM Last administered on at 07:32; Start 05/20/18 at 09:00 Vitamin D (Vitamin D3) 50,000 unit WEEKLY PO ; Start 05/13/18 at 18:30; Stop 05/13/18 at 18:39; Status DC Vitamin D (Vitamin D3) 50,000 unit WEEKLY PO Last administered on 05/28/18at 09: 00; Start 05/14/18 at 09:00 Quetiapine Fumarate (SEROquel) 25 mg DAILY PO Last administered on 05/18/18at 07:50; Start 05/15/18 at 09:00; Stop 05/18/18 at 17:21; Status DC Trazodone HCl (Desyrel) 25 mg QHS PO Last administered on 05/26/18at 20:07; Start 05/17/18 at 21:00; Stop 05/26/18 at 21:00; Status DC Trazodone HCl (Desyrel) 25 mg PRN QHS PRN PO INSOMNIA; Start 05/17/18 at 18:00 Quetiapine Fumarate (SEROquel) 37.5 mg DAILY PO Last administered on 05/28/18at 09:00; Start 05/19/18 at 09:00; Stop 05/29/18 at 18:44; Status DC Sertraline HCl (Zoloft) 50 mg DAILY PO Last administered on 05/26/18at 07:48; Start 05/25/18 at 09:00; Stop 05/26/18 at 18:27; Status DC Olanzapine (ZyPREXA ZYDIS) 5 mg PRN Q2HR PRN PO PSYCHOSIS; Start 05/24/18 at 18:30; Stop 05/24/18 at 18:30; Status DC Olanzapine (ZyPREXA ZYDIS) 2.5 mg PRN Q2HR PRN PO PSYCHOSIS Last administered on 05/31/18 17:49; Start 05/24/18 at 18:30 Trazodone HCl (Desyrel) 50 mg QHS PO Last administered on 06/02/18 19:17; Start 05/26/18 at 21:00 Fluvoxamine Maleate (Luvox) 50 mg QHS PO Last administered on 05/30/18 20:34; Start 05/26/18 at 21:00; Stop 05/31/18 at 16:27; Status DC Lidocaine (Lidoderm) 1 patch DAILY TD Last administered on 06/02/18 09:45; Start 05/29/18 at 09:00 Miscellaneous (Lidoderm Patch Removal) 1 ea QHS MC Last administered on 19:36; Start 05/28/18 at 21:00 Quetiapine Fumarate (SEROquel) 50 mg DAILY PO Last administered on 06/02/18 09 :44; Start 05/30/18 at 09:00 Fluvoxamine Maleate (Luvox) 75 mg QHS PO Last administered on 06/02/18 19:17; Start 05/31/18 at 21:00 Quetiapine Fumarate (SEROquel) 25 mg 1500 PO Last administered on 06/02/18 15: 17; Start 06/01/18 at 15:00 Olanzapine (ZyPREXA ZYDIS) 5 mg 1X ONCE PO Last administered on 05/31/18 19: 33; Start 05/31/18 at 19:30; Stop 05/31/18 at 19:31; Status DC Active Scripts Active Reported Remeron (Mirtazapine) 15 Mg Tablet 0.5 Tab PO QHS I have reviewed the current psychotropics carefully including drug interactions. Risk benefit ratio favors no change other than as noted in my dictated progress note. Diagnosis: Problems: (1) Anxiety disorder (2) Impulse control disorder (3) Major neurocognitive disorder, due to vascular disease, with behavioral disturbance, mild (4) Mixed Alzheimer's and vascular dementia with behavior disturbances KHRIS RUFF MD Jun 02, 2018 22:45
--- NOTE | 2018-06-02 23:06 | NUR ---
Nursing Note The patient was located in her room most of shift and is currently located in her room sleeping. The patient was very disoriented this shift making statements that she was in her rastafari and that she was very disappointed in the way her rastafari was being ran. This nurse was able to talk with the patient and she was calm after talking with this nurse. The patient is currently sleeping.
--- NOTE | 2018-06-02 23:16 | PDOC ---
Exam Note: Edgar Note: Please also refer to the separate dictated note~for this date of service dictated separately.~Patient seen individually. Discussed the patient with Nursing staff reviewed the chart.~Reviewed interim history and current functioning. Reviewed vital signs,~Labs/ Radiology~and current medications noted below. Continue current treatment with the changes noted in the dictated addendum note Assessment: Vital Signs: Vital Signs Date Time Temp Pulse Resp B/P (MAP) Pulse Ox O2 Delivery O2 Flow Rate FiO2 06/02/18 16:39 98.3 71 18 128/87 (101) 96 06/01/18 16:12 Room Air I&O Intake and Output 06/02/18 07:00 Intake Total 480 ml Balance 480 ml Intake Oral 480 ml Current Medications: Meds: Current Medications Acetaminophen (Tylenol) 650 mg PRN Q6HRS PRN PO PAIN / TEMP Last administered on 05/24/18at 11:29; Start 05/13/18 at 02:30 Multi-Ingredient Ointment (Analgesic [place]) 1 vanesa PRN QID PRN TP MUSCLE PAIN; Start 05/13/18 at 02:30 Al Hydroxide/Mg Hydroxide (Mylanta Plus Xs) 15 ml PRN AFTMEALHC PRN PO DYSPEPSIA; Start 05/13/18 at 02:30 Magnesium Hydroxide (Milk Of Magnesia) 2,400 mg PRN QHS PRN PO CONSTIPATION Last administered on 05/18/18at 20:12; Start 05/13/18 at 02:30 Lorazepam (Ativan) 0.25 mg PRN Q6HRS PRN PO ANXIETY / AGITATION Last administered on 06/02/18at 18:06; Start 05/13/18 at 02:45 Lorazepam (Ativan) 1 mg DAILY IM Last administered on 05/18/18 15:11; Start 05/13/18 at 08:15; Stop 05/18/18 at 17:21; Status DC Haloperidol Lactate (Haldol) 5 mg DAILY IM Last administered on 05/18/18 15: 07; Start 05/13/18 at 08:15; Stop 05/18/18 at 17:21; Status DC Cyanocobalamin (Vitamin B-12) 1,000 mcg DAILY IM Last administered on at 13:52; Start 05/13/18 at 18:00; Stop 05/17/18 at 17:59; Status DC Cyanocobalamin (Vitamin B-12) 1,000 mcg WEEKLY IM Last administered on at 07:32; Start 05/20/18 at 09:00 Vitamin D (Vitamin D3) 50,000 unit WEEKLY PO ; Start 05/13/18 at 18:30; Stop 05/13/18 at 18:39; Status DC Vitamin D (Vitamin D3) 50,000 unit WEEKLY PO Last administered on 05/28/18at 09: 00; Start 05/14/18 at 09:00 Quetiapine Fumarate (SEROquel) 25 mg DAILY PO Last administered on 05/18/18at 07:50; Start 05/15/18 at 09:00; Stop 05/18/18 at 17:21; Status DC Trazodone HCl (Desyrel) 25 mg QHS PO Last administered on 05/26/18at 20:07; Start 05/17/18 at 21:00; Stop 05/26/18 at 21:00; Status DC Trazodone HCl (Desyrel) 25 mg PRN QHS PRN PO INSOMNIA; Start 05/17/18 at 18:00 Quetiapine Fumarate (SEROquel) 37.5 mg DAILY PO Last administered on 05/28/18at 09:00; Start 05/19/18 at 09:00; Stop 05/29/18 at 18:44; Status DC Sertraline HCl (Zoloft) 50 mg DAILY PO Last administered on 05/26/18at 07:48; Start 05/25/18 at 09:00; Stop 05/26/18 at 18:27; Status DC Olanzapine (ZyPREXA ZYDIS) 5 mg PRN Q2HR PRN PO PSYCHOSIS; Start 05/24/18 at 18:30; Stop 05/24/18 at 18:30; Status DC Olanzapine (ZyPREXA ZYDIS) 2.5 mg PRN Q2HR PRN PO PSYCHOSIS Last administered on 05/31/18at 17:49; Start 05/24/18 at 18:30 Trazodone HCl (Desyrel) 50 mg QHS PO Last administered on 06/02/18at 19:17; Start 05/26/18 at 21:00 Fluvoxamine Maleate (Luvox) 50 mg QHS PO Last administered on 05/30/18 20:34; Start 05/26/18 at 21:00; Stop 05/31/18 at 16:27; Status DC Lidocaine (Lidoderm) 1 patch DAILY TD Last administered on 06/02/18 09:45; Start 05/29/18 at 09:00 Miscellaneous (Lidoderm Patch Removal) 1 ea QHS MC Last administered on 19:36; Start 05/28/18 at 21:00 Quetiapine Fumarate (SEROquel) 50 mg DAILY PO Last administered on 06/02/18 09 :44; Start 05/30/18 at 09:00 Fluvoxamine Maleate (Luvox) 75 mg QHS PO Last administered on 06/02/18 19:17; Start 05/31/18 at 21:00 Quetiapine Fumarate (SEROquel) 25 mg 1500 PO Last administered on 06/02/18 15: 17; Start 06/01/18 at 15:00 Olanzapine (ZyPREXA ZYDIS) 5 mg 1X ONCE PO Last administered on 05/31/18 19: 33; Start 05/31/18 at 19:30; Stop 05/31/18 at 19:31; Status DC Active Scripts Active Reported Remeron (Mirtazapine) 15 Mg Tablet 0.5 Tab PO QHS I have reviewed the current psychotropics carefully including drug interactions. Risk benefit ratio favors no change other than as noted in my dictated progress note. 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
[2018-06-03 05:56] VITALS: BP 140/90
--- NOTE | 2018-06-03 06:33 | NUR ---
Nursing Note patient was extremely anxious and was crying uncontrollably. The patient did not respond to redirection. The patient was given PRN Zyprexa per PRN order@0547.
[2018-06-03] MEDS: LIDOCAINE (700MG/PATCH) PATCH. TD SCH (08:38)
[2018-06-03] MEDS: QUEtiapine 50 MG TABLET. PO SCH ×2 (08:39→19:32)
[2018-06-03] MEDS: CYANOCOBALAMIN (VITAMIN B-12) 1,000 MCG/ML VIAL IM SCH (08:41)
--- NOTE | 2018-06-03 08:47 | NUR ---
WEEKLY ACTIVITY THERAPY NOTE Date of Admission: 05/13/2018 Date of AT Assessment: 05/17/2018 Goal aimed: to increase socialization and engagement Initial goal: Pt. will participate in at least three individual or group sessions, moderately, before discharge. Weekly progress towards goal: achieved Group participation level: varies Behaviors observed: Pt. is often distracted and anxious and needs reassurance and redirection to engage; Pt. seems to enjoy morning exercise groups and some trivia games; Pt. is generally pleasant and compliant with staff Plan: change goal- Pt. will participate at least moderately in three groups per week
--- NOTE | 2018-06-03 08:51 | NUR ---
Pt wandering the hallway speaking to other patients saying, "I've lost my mind." "I'm crazy." "I feel like my head is in a fog." However, pt does not appear to be extremely distressed. No tears, no crying. Pt explained that she did not understand why she does not have to pay for anything. Attempted to reassure pt that insurance was paying; pt still did not understand. Pt finally seemed to grasp that not paying for things applied to this building only and things would go "back to normal" once she leaves this building.
--- NOTE | 2018-06-03 14:11 | NUR ---
WEEKLY NOTES: Pt continues to have more aggression and confusion at night. During the day pt wanders around the unit and at time will talk to her peers. Pt will look towards discharging on Thursday 06/07 to [facility]. SW will continue to finalize discharge plans.
[2018-06-03] MEDS: QUEtiapine 25 MG TABLET. PO SCH (15:09)
[2018-06-03 15:58] VITALS: BP 168/83
--- NOTE | 2018-06-03 17:45 | NUR ---
Behavior Intervention Response and Plan: BIRP Note: Behavior: Assumed Care of patient, patient located in Hallway at shift change. Patient exhibited the following behavior Wandering, Disorganized, Compliant. Brief assessment on rounds of vital signs, medication needs, lab studies, and pain. Treatment plan problems dementia w/ bd and fall risk. Intervention: Patient assessed and the following interventions initiated safety checks 15 Minute Checks Head to toe Assessment , Cognitive Assessment , Medications. Response: After interactions and interventions patient responded in the following manner, Wandering , Disorganized ,Anxious. Continue to assess behaviors and condition will continue to monitor throughout the shift as needed. Patient educated on ADL's, and hand hygiene. Plan: Continue to monitor Master Treatment Plan for patient's progress toward short term goals of Decreased Agitation, Decreased Aggression, detention goals to return to previous living setting vs placement. Continue to assess patient for changes in above assessment. Monitor for medication needs, pain, and safety concerns. Hourly rounding performed to ensure safe environment.
[2018-06-03] MEDS: traZODone 50 MG TABLET. PO SCH (19:32)
[2018-06-03] MEDS: PATCH REMOVAL. MC SCH (21:00)
--- NOTE | 2018-06-04 04:12 | NUR ---
Nursing Note The patient was calm and complaint with her medications and cares. The patient was appropriate during interactions with this nurse. The patient is currently located in her room sleeping.
[2018-06-04 06:18] VITALS: BP 154/74
[2018-06-04] MEDS: QUEtiapine 50 MG TABLET. PO SCH (07:46)
[2018-06-04] MEDS: LIDOCAINE (700MG/PATCH) PATCH. TD SCH ×2 (07:47→08:34)
[2018-06-04] MEDS: CHOLECALCIFEROL (VITAMIN D3) 50,000 UNIT CAPSULE PO SCH (07:48)
[2018-06-04] MEDS ORDERED: LIDOCAINE (700MG/PATCH) PATCH. TD PRN (08:45)
--- NOTE | 2018-06-04 09:42 | NUR ---
Behavior Intervention Response and Plan: BIRP Note: Behavior: Assumed Care of patient, patient located in Dining Room at shift change. Patient exhibited the following behavior Disorganized, Calm, Compliant. Brief assessment on rounds of vital signs, medication needs, lab studies, and pain. Treatment plan problems . Intervention: Patient assessed and the following interventions initiated safety checks 15 Minute Checks Cognitive Assessment , Head to toe Assessment , Medications. Response: After interactions and interventions patient responded in the following manner, Wandering , Disorganized ,Compliant. Continue to assess behaviors and condition will continue to monitor throughout the shift as needed. Patient educated on ADL's, and hand hygiene. 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 Continue to assess patient for changes in above assessment. Monitor for medication needs, pain, and safety concerns. Hourly rounding performed to ensure safe environment.
[2018-06-04] MEDS: QUEtiapine 25 MG TABLET. PO SCH (13:30)
--- NOTE | 2018-06-04 13:38 | NUR ---
[facility] Social Work Discharge Planning Form Patient Name FROY HATFIELD Admit Date: 05/13/18 DISCHARGE PLAN Discharge Destination: [facility] memory care on 06/07/18 Care Assessment: Not required in assisted living memory care Transportation: Assisted transportation to transport at 11am on 06/07/18 Special Instructions/Notes: Arrange for f/u appointments with PCP and in house facility psychiatrist in 7-10 days. DISCHARGE TO FACILITY Facility: [facility] Address: [address] [place] [address] Contact Name: BURTON Hung Contact Name: ron Saldana director PCP: Dr. Springer [phone], fax Psychiatrist: Dr. Lebron, facility provider
--- NOTE | 2018-06-04 13:44 | NUR ---
Faxed updated notes and medication list to BURTON Hernandez, at [facility] in preparation for d/c on 06/07/18. Assisted transportation to transport at 11am. Reviewed above information with Ifrah Sanford, daughter.
[2018-06-04 16:00] VITALS: BP 103/69
--- NOTE | 2018-06-04 17:34 | NUR ---
pt up adl to meals and groups. has taken meds with encouragement. has been in pleasant spirits. attends groups.
--- NOTE | 2018-06-04 19:46 | PDOC ---
Exam Note: Edgar Note: Late entry for date of service June 03, 2018. Please also refer to the separate dictated note~for this date of service dictated separately.~Patient seen individually. Discussed the patient with Nursing staff reviewed the chart.~ Reviewed interim history and current functioning. Reviewed vital signs,~Labs/ Radiology~and current medications noted below. Continue current treatment with the changes noted in the dictated addendum note Assessment: Vital Signs: VS - Last 72 Hours, by Label Date Time Temp Pulse Resp B/P (MAP) Pulse Ox O2 Delivery O2 Flow Rate FiO2 06/04/18 16:00 97.6 54 17 103/69 (80) 97 Room Air 06/04/18 06:18 97.5 67 18 154/74 (100) 97 Room Air 06/03/18 15:58 98.2 69 17 168/83 (111) 99 Room Air 06/03/18 05:56 97.9 75 20 140/90 (107) 100 06/02/18 16:39 98.3 71 18 128/87 (101) 96 06/02/18 05:55 97.0 64 18 137/88 (104) 94 Vital Signs Date Time Temp Pulse Resp B/P (MAP) Pulse Ox O2 Delivery O2 Flow Rate FiO2 06/04/18 16:00 97.6 54 17 103/69 (80) 97 Room Air I&O Intake and Output 06/04/18 07:00 Intake Total 1140 ml Balance 1140 ml Intake Oral 1140 ml Current Medications: Meds: Current Medications Acetaminophen (Tylenol) 650 mg PRN Q6HRS PRN PO PAIN / TEMP Last administered on 05/24/18at 11:29; Start 05/13/18 at 02:30 Multi-Ingredient Ointment (Analgesic [place]) 1 vanesa PRN QID PRN TP MUSCLE PAIN; Start 05/13/18 at 02:30 Al Hydroxide/Mg Hydroxide (Mylanta Plus Xs) 15 ml PRN AFTMEALHC PRN PO DYSPEPSIA; Start 05/13/18 at 02:30 Magnesium Hydroxide (Milk Of Magnesia) 2,400 mg PRN QHS PRN PO CONSTIPATION Last administered on 05/18/18at 20:12; Start 05/13/18 at 02:30 Lorazepam (Ativan) 0.25 mg PRN Q6HRS PRN PO ANXIETY / AGITATION Last administered on 06/02/18at 18:06; Start 05/13/18 at 02:45 Lorazepam (Ativan) 1 mg DAILY IM Last administered on 05/18/18at 15:11; Start 05/13/18 at 08:15; Stop 05/18/18 at 17:21; Status DC Haloperidol Lactate (Haldol) 5 mg DAILY IM Last administered on 05/18/18at 15: 07; Start 05/13/18 at 08:15; Stop 05/18/18 at 17:21; Status DC Cyanocobalamin (Vitamin B-12) 1,000 mcg DAILY IM Last administered on at 13:52; Start 05/13/18 at 18:00; Stop 05/17/18 at 17:59; Status DC Cyanocobalamin (Vitamin B-12) 1,000 mcg WEEKLY IM Last administered on at 08:41; Start 05/20/18 at 09:00 Vitamin D (Vitamin D3) 50,000 unit WEEKLY PO ; Start 05/13/18 at 18:30; Stop 05/13/18 at 18:39; Status DC Vitamin D (Vitamin D3) 50,000 unit WEEKLY PO Last administered on 06/04/18at 07: 48; Start 05/14/18 at 09:00 Quetiapine Fumarate (SEROquel) 25 mg DAILY PO Last administered on 05/18/18at 07:50; Start 05/15/18 at 09:00; Stop 05/18/18 at 17:21; Status DC Trazodone HCl (Desyrel) 25 mg QHS PO Last administered on 05/26/18at 20:07; Start 05/17/18 at 21:00; Stop 05/26/18 at 21:00; Status DC Trazodone HCl (Desyrel) 25 mg PRN QHS PRN PO INSOMNIA; Start 05/17/18 at 18:00 Quetiapine Fumarate (SEROquel) 37.5 mg DAILY PO Last administered on 05/28/18at 09:00; Start 05/19/18 at 09:00; Stop 05/29/18 at 18:44; Status DC Sertraline HCl (Zoloft) 50 mg DAILY PO Last administered on 05/26/18at 07:48; Start 05/25/18 at 09:00; Stop 05/26/18 at 18:27; Status DC Olanzapine (ZyPREXA ZYDIS) 5 mg PRN Q2HR PRN PO PSYCHOSIS; Start 05/24/18 at 18:30; Stop 05/24/18 at 18:30; Status DC Olanzapine (ZyPREXA ZYDIS) 2.5 mg PRN Q2HR PRN PO PSYCHOSIS Last administered on 06/03/18at 05:47; Start 05/24/18 at 18:30 Trazodone HCl (Desyrel) 50 mg QHS PO Last administered on 06/03/18at 19:32; Start 05/26/18 at 21:00 Fluvoxamine Maleate (Luvox) 50 mg QHS PO Last administered on 05/30/18at 20:34; Start 05/26/18 at 21:00; Stop 05/31/18 at 16:27; Status DC Lidocaine (Lidoderm) 1 patch DAILY TD Last administered on 06/03/18at 08:38; Start 05/29/18 at 09:00; Stop 06/04/18 at 08:37; Status DC Miscellaneous (Lidoderm Patch Removal) 1 ea QHS MC Last administered on at 21:00; Start 05/28/18 at 21:00 Quetiapine Fumarate (SEROquel) 50 mg DAILY PO Last administered on 06/04/18at 07 :46; Start 05/30/18 at 09:00 Fluvoxamine Maleate (Luvox) 75 mg QHS PO Last administered on 06/03/18 19:34; Start 05/31/18 at 21:00 Quetiapine Fumarate (SEROquel) 25 mg 1500 PO Last administered on 06/04/18at 13: 30; Start 06/01/18 at 15:00 Olanzapine (ZyPREXA ZYDIS) 5 mg 1X ONCE PO Last administered on 05/31/18 19: 33; Start 05/31/18 at 19:30; Stop 05/31/18 at 19:31; Status DC Lidocaine (Lidoderm) 1 patch PRN DAILY PRN TD PAIN; Start 06/04/18 at 08:45 Active Scripts Active Reported Remeron (Mirtazapine) 15 Mg Tablet 0.5 Tab PO QHS I have reviewed the current psychotropics carefully including drug interactions. Risk benefit ratio favors no change other than as noted in my dictated progress note. 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
[2018-06-04] MEDS: traZODone 50 MG TABLET. PO SCH (20:12)
[2018-06-04] MEDS: PATCH REMOVAL. MC SCH (21:00)
--- NOTE | 2018-06-04 21:55 | NUR ---
Behavior Intervention Response and Plan: BIRP Note: Behavior: Assumed Care of patient, patient located in Patient Room at shift change. Patient exhibited the following behavior Interactive, Disorganized, Compliant. Brief assessment on rounds of vital signs, medication needs, lab studies, and pain. Treatment plan problems 1. Intervention: Patient assessed and the following interventions initiated safety checks 15 Minute Checks Personal Alarm in place , Cognitive Assessment , Head to toe Assessment. Response: After interactions and interventions patient responded in the following manner, Interactive , Calm ,Disorganized. Continue to assess behaviors and condition will continue to monitor throughout the shift as needed. Patient educated on ADL's, and hand hygiene. Plan: Continue to monitor Master Treatment Plan for patient's progress toward short term goals of Decreased Agitation, Decreased Anxiety, long-term goals to return to previous living setting vs placement. Continue to assess patient for changes in above assessment. Monitor for medication needs, pain, and safety concerns. Hourly rounding performed to ensure safe environment.
--- NOTE | 2018-06-04 22:54 | PDOC ---
Exam Note: Edgar Note: Please also refer to the separate dictated note~for this date of service dictated separately.~Patient seen individually. Discussed the patient with Nursing staff reviewed the chart.~Reviewed interim history and current functioning. Reviewed vital signs,~Labs/ Radiology~and current medications noted below. Continue current treatment with the changes noted in the dictated addendum note Assessment: Vital Signs: Vital Signs Date Time Temp Pulse Resp B/P (MAP) Pulse Ox O2 Delivery O2 Flow Rate FiO2 06/04/18 16:00 97.6 54 17 103/69 (80) 97 Room Air I&O Intake and Output 06/04/18 07:00 Intake Total 1140 ml Balance 1140 ml Intake Oral 1140 ml Current Medications: Meds: Current Medications Acetaminophen (Tylenol) 650 mg PRN Q6HRS PRN PO PAIN / TEMP Last administered on 05/24/18at 11:29; Start 05/13/18 at 02:30 Multi-Ingredient Ointment (Analgesic [place]) 1 vanesa PRN QID PRN TP MUSCLE PAIN; Start 05/13/18 at 02:30 Al Hydroxide/Mg Hydroxide (Mylanta Plus Xs) 15 ml PRN AFTMEALHC PRN PO DYSPEPSIA; Start 05/13/18 at 02:30 Magnesium Hydroxide (Milk Of Magnesia) 2,400 mg PRN QHS PRN PO CONSTIPATION Last administered on 05/18/18at 20:12; Start 05/13/18 at 02:30 Lorazepam (Ativan) 0.25 mg PRN Q6HRS PRN PO ANXIETY / AGITATION Last administered on 06/02/18at 18:06; Start 05/13/18 at 02:45 Lorazepam (Ativan) 1 mg DAILY IM Last administered on 05/18/18at 15:11; Start 05/13/18 at 08:15; Stop 05/18/18 at 17:21; Status DC Haloperidol Lactate (Haldol) 5 mg DAILY IM Last administered on 05/18/18 15: 07; Start 05/13/18 at 08:15; Stop 05/18/18 at 17:21; Status DC Cyanocobalamin (Vitamin B-12) 1,000 mcg DAILY IM Last administered on at 13:52; Start 05/13/18 at 18:00; Stop 05/17/18 at 17:59; Status DC Cyanocobalamin (Vitamin B-12) 1,000 mcg WEEKLY IM Last administered on at 08:41; Start 05/20/18 at 09:00 Vitamin D (Vitamin D3) 50,000 unit WEEKLY PO ; Start 05/13/18 at 18:30; Stop 05/13/18 at 18:39; Status DC Vitamin D (Vitamin D3) 50,000 unit WEEKLY PO Last administered on 06/04/18at 07: 48; Start 05/14/18 at 09:00 Quetiapine Fumarate (SEROquel) 25 mg DAILY PO Last administered on 05/18/18at 07:50; Start 05/15/18 at 09:00; Stop 05/18/18 at 17:21; Status DC Trazodone HCl (Desyrel) 25 mg QHS PO Last administered on 05/26/18at 20:07; Start 05/17/18 at 21:00; Stop 05/26/18 at 21:00; Status DC Trazodone HCl (Desyrel) 25 mg PRN QHS PRN PO INSOMNIA; Start 05/17/18 at 18:00 Quetiapine Fumarate (SEROquel) 37.5 mg DAILY PO Last administered on 05/28/18at 09:00; Start 05/19/18 at 09:00; Stop 05/29/18 at 18:44; Status DC Sertraline HCl (Zoloft) 50 mg DAILY PO Last administered on 05/26/18at 07:48; Start 05/25/18 at 09:00; Stop 05/26/18 at 18:27; Status DC Olanzapine (ZyPREXA ZYDIS) 5 mg PRN Q2HR PRN PO PSYCHOSIS; Start 05/24/18 at 18:30; Stop 05/24/18 at 18:30; Status DC Olanzapine (ZyPREXA ZYDIS) 2.5 mg PRN Q2HR PRN PO PSYCHOSIS Last administered on 06/03/18at 05:47; Start 05/24/18 at 18:30 Trazodone HCl (Desyrel) 50 mg QHS PO Last administered on 06/04/18at 20:12; Start 05/26/18 at 21:00 Fluvoxamine Maleate (Luvox) 50 mg QHS PO Last administered on 05/30/18 20:34; Start 05/26/18 at 21:00; Stop 05/31/18 at 16:27; Status DC Lidocaine (Lidoderm) 1 patch DAILY TD Last administered on 06/03/18at 08:38; Start 05/29/18 at 09:00; Stop 06/04/18 at 08:37; Status DC Miscellaneous (Lidoderm Patch Removal) 1 ea QHS MC Last administered on 21:00; Start 05/28/18 at 21:00 Quetiapine Fumarate (SEROquel) 50 mg DAILY PO Last administered on 06/04/18at 07 :46; Start 05/30/18 at 09:00 Fluvoxamine Maleate (Luvox) 75 mg QHS PO Last administered on 06/04/18at 20:12; Start 05/31/18 at 21:00 Quetiapine Fumarate (SEROquel) 25 mg 1500 PO Last administered on 06/04/18 13: 30; Start 06/01/18 at 15:00 Olanzapine (ZyPREXA ZYDIS) 5 mg 1X ONCE PO Last administered on 05/31/18 19: 33; Start 05/31/18 at 19:30; Stop 05/31/18 at 19:31; Status DC Lidocaine (Lidoderm) 1 patch PRN DAILY PRN TD PAIN; Start 06/04/18 at 08:45 Active Scripts Active Reported Remeron (Mirtazapine) 15 Mg Tablet 0.5 Tab PO QHS I have reviewed the current psychotropics carefully including drug interactions. Risk benefit ratio favors no change other than as noted in my dictated progress note. 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
[2018-06-05 05:54] VITALS: BP 127/65
[2018-06-05 07:18] LABS: BASO % 1 % (0-3); EOS # 0.2 x10^3/uL (0.0-0.7); EOS % 3 % (0-3); HEMATOCRIT 39.4 % (36.0-47.0); HEMOGLOBIN 13.2 g/dL (12.0-15.5); LYMPH # 1.4 x10^3/uL (1.0-4.8); LYMPH % 28 % (24-48); MEAN CORPUSCULAR HEMOGLOBIN 30 pg (25-35); MEAN CORPUSCULAR HGB CONC 34 g/dL (31-37); MEAN CORPUSCULAR VOLUME 88 fL (79-100); MONO # 0.4 x10^3/uL (0.0-1.1); MONO % 7 % (0-9); NEUT # 3.2 x10^3uL (1.8-7.7); NEUT % 61 % (31-73); PLATELET COUNT 184 x10^3/uL (140-400); RED BLOOD COUNT 4.46 x10^6/uL (3.50-5.40); RED CELL DISTRIBUTION WIDTH 13.1 % (11.5-14.5); WHITE BLOOD COUNT 5.2 x10^3/uL (4.0-11.0)
[2018-06-05 07:23] LABS: ALBUMIN 2.8 g/dL (3.4-5.0); ALBUMIN/GLOBULIN RATIO 0.8 (1.0-1.7); CALCIUM 9.2 mg/dL (8.5-10.1); CREATININE 0.9 mg/dL (0.6-1.0); GFR 59.8; POTASSIUM 4.3 mmol/L (3.5-5.1); TOTAL BILIRUBIN 0.4 mg/dL (0.2-1.0); TOTAL PROTEIN 6.3 g/dL (6.4-8.2)
[2018-06-05] MEDS: QUEtiapine 50 MG TABLET. PO SCH (07:44)
--- NOTE | 2018-06-05 11:04 | NUR ---
Behavior Intervention Response and Plan: BIRP Note: Behavior: Assumed Care of patient, patient located in Dining Room at shift change. Patient exhibited the following behavior Disorganized, Calm, Compliant. Brief assessment on rounds of vital signs, medication needs, lab studies, and pain. Treatment plan problems . Intervention: Patient assessed and the following interventions initiated safety checks 15 Minute Checks Cognitive Assessment , Head to toe Assessment , Medications. Response: After interactions and interventions patient responded in the following manner, Wandering , Disorganized ,Compliant. Continue to assess behaviors and condition will continue to monitor throughout the shift as needed. Patient educated on ADL's, and hand hygiene. 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 Continue to assess patient for changes in above assessment. Monitor for medication needs, pain, and safety concerns. Hourly rounding performed to ensure safe environment.
--- NOTE | 2018-06-05 12:00 | PN ---
DATE: 06/02/2018 PSYCHIATRIC PROGRESS NOTE This late entry 06/02/2018 covers elements not covered in my initial note. SUBJECTIVE: I met with the patient in the evening. The patient took her meds in the morning and in the evening. She took them in ice cream, slept 7 hours. No behaviors noted, though she gets a little more confused, paranoid late in the evening. She did not act up, become aggressive, banging on doors and windows as she has done previously in the evenings. REVIEW OF SYSTEMS: No CV, , pulmonary, eye, ENT system symptoms on review. Reliability poor. MENTAL STATUS EXAM: Oriented to herself. Insight, judgment, recent and remote memory, attention, concentration, fund of knowledge poor, consistent with her diagnosis mentioned in my initial note. PLAN: No change from initial note. MAN Padmini RUFF MD DR: KATARZYNA/bibiana JOB#: [id number] / [id number]
--- NOTE | 2018-06-05 12:08 | PN ---
DATE: 06/03/2018 PSYCHIATRIC PROGRESS NOTE This is a late entry 06/03/2018 covers elements not covered in my initial note. SUBJECTIVE: I met with the patient in the evening and staffed at a treatment team meeting with the entire team in the morning. The patient slept 7-1/4 hours previous night. The patient's daughter, attended the treatment team meeting. The patient remains confused towards late in the evening. She gets more labile in her mood, obsessive, angry, screaming, yelling, but this seems to be gradually improving. She takes her medications if she is told they are vitamins since she is of [employer] emilia. REVIEW OF SYSTEMS: No CV, , pulmonary, eye, ENT system symptoms on review. Reliability poor. MENTAL STATUS EXAM: Oriented to herself. Insight, judgment, recent and remote memory, attention, concentration, fund of knowledge poor, consistent with her diagnosis mentioned in my initial note. PLAN: No change from initial note, may need to increase Luvox further. KHRIS RUFF MD DR: KATARZYNA/bibiana JOB#: [id number] / [id number]
[2018-06-05] MEDS: QUEtiapine 25 MG TABLET. PO SCH (14:52)
[2018-06-05 15:50] VITALS: BP 159/81
--- NOTE | 2018-06-05 16:53 | NUR ---
pt up adl to meals and groups. was anxious earlier in day but redirected well. pt spke with dtr on phone. visit went well.
[2018-06-05] MEDS: PATCH REMOVAL. MC SCH (20:04)
[2018-06-05] MEDS: traZODone 50 MG TABLET. PO SCH (20:04)
--- NOTE | 2018-06-05 21:38 | NUR ---
Nursing note: Assumed care of pt in her room. She was sleeping but easily aroused. She was pleasant, compliant, and cooperative. No c/o or s/s of pain, no behaviors.
--- NOTE | 2018-06-05 22:54 | PDOC ---
Exam Note: Edgar Note: Please also refer to the separate dictated note~for this date of service dictated separately.~Patient seen individually. Discussed the patient with Nursing staff reviewed the chart.~Reviewed interim history and current functioning. Reviewed vital signs,~Labs/ Radiology~and current medications noted below. Continue current treatment with the changes noted in the dictated addendum note Assessment: Vital Signs: Vital Signs Date Time Temp Pulse Resp B/P (MAP) Pulse Ox O2 Delivery O2 Flow Rate FiO2 06/05/18 15:50 97.8 61 20 159/81 (107) 97 Room Air I&O Intake and Output 06/05/18 07:00 Intake Total 720 ml Balance 720 ml Intake Oral 720 ml Labs: Laboratory Tests Test 06/05/18 06:44 White Blood Count 5.2 x10^3/uL (4.0-11.0) Red Blood Count 4.46 x10^6/uL (3.50-5.40) Hemoglobin 13.2 g/dL (12.0-15.5) Hematocrit 39.4 % (36.0-47.0) Mean Corpuscular Volume 88 fL (79-100) Mean Corpuscular Hemoglobin 30 pg (25-35) Mean Corpuscular Hemoglobin Concent 34 g/dL (31-37) Red Cell Distribution Width 13.1 % (11.5-14.5) Platelet Count 184 x10^3/uL (140-400) Neutrophils (%) (Auto) 61 % (31-73) Lymphocytes (%) (Auto) 28 % (24-48) Monocytes (%) (Auto) 7 % (0-9) Eosinophils (%) (Auto) 3 % (0-3) Basophils (%) (Auto) 1 % (0-3) Neutrophils # (Auto) 3.2 x10^3uL (1.8-7.7) Lymphocytes # (Auto) 1.4 x10^3/uL (1.0-4.8) Monocytes # (Auto) 0.4 x10^3/uL (0.0-1.1) Eosinophils # (Auto) 0.2 x10^3/uL (0.0-0.7) Basophils # (Auto) 0.0 x10^3/uL (0.0-0.2) Sodium Level 139 mmol/L (136-145) Potassium Level 4.3 mmol/L (3.5-5.1) Chloride Level 106 mmol/L (98-107) Carbon Dioxide Level 28 mmol/L (21-32) Anion Gap 5 (6-14) L Blood Urea Nitrogen 27 mg/dL (7-20) H Creatinine 0.9 mg/dL (0.6-1.0) Estimated GFR (Cockcroft-Gault) 59.8 BUN/Creatinine Ratio 30 (6-20) H Glucose Level 103 mg/dL (70-99) H Calcium Level 9.2 mg/dL (8.5-10.1) Total Bilirubin 0.4 mg/dL (0.2-1.0) Aspartate Amino Transferase (AST) 15 U/L (15-37) Alanine Aminotransferase (ALT) 13 U/L (14-59) L Alkaline Phosphatase 99 U/L (46-116) Total Protein 6.3 g/dL (6.4-8.2) L Albumin 2.8 g/dL (3.4-5.0) L Albumin/Globulin Ratio 0.8 (1.0-1.7) L Current Medications: Meds: Current Medications Acetaminophen (Tylenol) 650 mg PRN Q6HRS PRN PO PAIN / TEMP Last administered on 05/24/18at 11:29; Start 05/13/18 at 02:30 Multi-Ingredient Ointment (Analgesic [place]) 1 vanesa PRN QID PRN TP MUSCLE PAIN; Start 05/13/18 at 02:30 Al Hydroxide/Mg Hydroxide (Mylanta Plus Xs) 15 ml PRN AFTMEALHC PRN PO DYSPEPSIA; Start 05/13/18 at 02:30 Magnesium Hydroxide (Milk Of Magnesia) 2,400 mg PRN QHS PRN PO CONSTIPATION Last administered on 05/18/18at 20:12; Start 05/13/18 at 02:30 Lorazepam (Ativan) 0.25 mg PRN Q6HRS PRN PO ANXIETY / AGITATION Last administered on 06/02/18at 18:06; Start 05/13/18 at 02:45 Lorazepam (Ativan) 1 mg DAILY IM Last administered on 05/18/18at 15:11; Start 05/13/18 at 08:15; Stop 05/18/18 at 17:21; Status DC Haloperidol Lactate (Haldol) 5 mg DAILY IM Last administered on 05/18/18at 15: 07; Start 05/13/18 at 08:15; Stop 05/18/18 at 17:21; Status DC Cyanocobalamin (Vitamin B-12) 1,000 mcg DAILY IM Last administered on at 13:52; Start 05/13/18 at 18:00; Stop 05/17/18 at 17:59; Status DC Cyanocobalamin (Vitamin B-12) 1,000 mcg WEEKLY IM Last administered on at 08:41; Start 05/20/18 at 09:00 Vitamin D (Vitamin D3) 50,000 unit WEEKLY PO ; Start 05/13/18 at 18:30; Stop 05/13/18 at 18:39; Status DC Vitamin D (Vitamin D3) 50,000 unit WEEKLY PO Last administered on 06/04/18at 07: 48; Start 05/14/18 at 09:00 Quetiapine Fumarate (SEROquel) 25 mg DAILY PO Last administered on 05/18/18at 07:50; Start 05/15/18 at 09:00; Stop 05/18/18 at 17:21; Status DC Trazodone HCl (Desyrel) 25 mg QHS PO Last administered on 05/26/18at 20:07; Start 05/17/18 at 21:00; Stop 05/26/18 at 21:00; Status DC Trazodone HCl (Desyrel) 25 mg PRN QHS PRN PO INSOMNIA; Start 05/17/18 at 18:00 Quetiapine Fumarate (SEROquel) 37.5 mg DAILY PO Last administered on 05/28/18at 09:00; Start 05/19/18 at 09:00; Stop 05/29/18 at 18:44; Status DC Sertraline HCl (Zoloft) 50 mg DAILY PO Last administered on 05/26/18at 07:48; Start 05/25/18 at 09:00; Stop 05/26/18 at 18:27; Status DC Olanzapine (ZyPREXA ZYDIS) 5 mg PRN Q2HR PRN PO PSYCHOSIS; Start 05/24/18 at 18:30; Stop 05/24/18 at 18:30; Status DC Olanzapine (ZyPREXA ZYDIS) 2.5 mg PRN Q2HR PRN PO PSYCHOSIS Last administered on 06/03/18 05:47; Start 05/24/18 at 18:30 Trazodone HCl (Desyrel) 50 mg QHS PO Last administered on 06/05/18 20:04; Start 05/26/18 at 21:00 Fluvoxamine Maleate (Luvox) 50 mg QHS PO Last administered on 05/30/18 20:34; Start 05/26/18 at 21:00; Stop 05/31/18 at 16:27; Status DC Lidocaine (Lidoderm) 1 patch DAILY TD Last administered on 06/03/18 08:38; Start 05/29/18 at 09:00; Stop 06/04/18 at 08:37; Status DC Miscellaneous (Lidoderm Patch Removal) 1 ea QHS MC Last administered on at 20:04; Start 05/28/18 at 21:00 Quetiapine Fumarate (SEROquel) 50 mg DAILY PO Last administered on 06/05/18at 07:44; Start 05/30/18 at 09:00 Fluvoxamine Maleate (Luvox) 75 mg QHS PO Last administered on 06/05/18 20:05 ; Start 05/31/18 at 21:00 Quetiapine Fumarate (SEROquel) 25 mg 1500 PO Last administered on 06/05/18at 14 :52; Start 06/01/18 at 15:00 Olanzapine (ZyPREXA ZYDIS) 5 mg 1X ONCE PO Last administered on 05/31/18 19: 33; Start 05/31/18 at 19:30; Stop 05/31/18 at 19:31; Status DC Lidocaine (Lidoderm) 1 patch PRN DAILY PRN TD PAIN; Start 06/04/18 at 08:45 Active Scripts Active Reported Remeron (Mirtazapine) 15 Mg Tablet 0.5 Tab PO QHS I have reviewed the current psychotropics carefully including drug interactions. Risk benefit ratio favors no change other than as noted in my dictated progress note. 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
[2018-06-06 07:05] VITALS: BP 139/75
[2018-06-06] MEDS: QUEtiapine 50 MG TABLET. PO SCH (07:42)
--- NOTE | 2018-06-06 09:49 | NUR ---
Behavior Intervention Response and Plan: BIRP Note: Behavior: Assumed Care of patient, patient located in Dining Room at shift change. Patient exhibited the following behavior Disorganized, Calm, Compliant. Brief assessment on rounds of vital signs, medication needs, lab studies, and pain. Treatment plan problems . Intervention: Patient assessed and the following interventions initiated safety checks 15 Minute Checks Cognitive Assessment , Head to toe Assessment , Medications. Response: After interactions and interventions patient responded in the following manner, Wandering , Disorganized ,Compliant. Continue to assess behaviors and condition will continue to monitor throughout the shift as needed. Patient educated on ADL's, and hand hygiene. 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 Continue to assess patient for changes in above assessment. Monitor for medication needs, pain, and safety concerns. Hourly rounding performed to ensure safe environment.
--- NOTE | 2018-06-06 12:02 | PN ---
DATE: 06/04/2018 This is a late entry for 06/04/2018 and covers elements not covered in my initial note of 06/04/2018. SUBJECTIVE: I met with the patient in the evening. The patient slept 6-1/2 hours previous night. She is compliant with her medications, does get more paranoid, delusional towards the evening. Remains confused most of the day. REVIEW OF SYSTEMS: No CV, , pulmonary, eye, ENT system symptoms on review. Reliability poor. MENTAL STATUS EXAM: Oriented to herself. Insight, judgment, recent and remote memory, attention, concentration, fund of knowledge poor, consistent with her diagnosis. She takes her medications if they are called vitamins because this goes along with the [employer] science. LABORATORY DATA: Reviewed. IMPRESSION: Unchanged from initial note. Major neurocognitive disorder, Alzheimer, vascular with delusion, depression. Rest unchanged. PLAN: No change from initial note. KHRIS RUFF MD DR: KATARZYNA/bibiana JOB#: [id number] / [id number]
[2018-06-06] MEDS: QUEtiapine 25 MG TABLET. PO SCH (13:36)
[2018-06-06] MEDS ORDERED: CHOL500021 PO (15:27)
[2018-06-06] MEDS ORDERED: ACET325T9 PO (15:27)
[2018-06-06] MEDS ORDERED: CYAN10002 IJ (15:30)
[2018-06-06] MEDS ORDERED: LIDO700A39 TP (15:31)
[2018-06-06] MEDS ORDERED: LORA0.5T PO (15:32)
[2018-06-06] MEDS ORDERED: MAG355OR12 PO (15:32)
[2018-06-06] MEDS ORDERED: MAGN2400 PO (15:33)
[2018-06-06] MEDS ORDERED: OLAN5TAB5 PO (15:34)
[2018-06-06] MEDS ORDERED: QUET50TA5 PO (15:38)
[2018-06-06] MEDS ORDERED: QUET25TA5 PO (15:42)
[2018-06-06] MEDS ORDERED: FLUV50TA2 PO (15:43)
[2018-06-06] MEDS ORDERED: TRAZ-85 PO ×2 (15:44→15:45)
[2018-06-06 16:18] VITALS: BP 120/74
--- NOTE | 2018-06-06 17:16 | PN ---
DATE: 06/05/2018 PSYCHIATRIC PROGRESS NOTE This late entry 06/05/2018 covers elements not covered in my initial note. SUBJECTIVE: I met with the patient in the evening. The patient slept 9 hours previous night. The patient remains confused, but much better, less labile, less psychotic, anxious, but even the evenings are better than before. REVIEW OF SYSTEMS: No CV, , pulmonary, eye, ENT system symptoms on review. Reliability poor. MENTAL STATUS EXAM: Oriented to herself. Insight, judgment, recent and remote memory, attention, concentration, fund of knowledge poor consistent with her diagnosis mentioned in my initial note. PLAN: No change from initial note. KHRIS RUFF MD DR: KATARZYNA/bibiana JOB#: [id number] / [id number]
--- NOTE | 2018-06-06 18:25 | NUR ---
pt up adl to meals. anxious at lunch. asking for purse and money. pt behavior did not escalate. prn zydis given. pt took nap. pleasantly confused at this time. med compliant.
[2018-06-06] MEDS: PATCH REMOVAL. MC SCH (21:00)
[2018-06-06] MEDS: traZODone 50 MG TABLET. PO SCH (21:03)
--- NOTE | 2018-06-06 22:55 | PDOC ---
Exam Note: Edgar Note: Please also refer to the separate dictated note~for this date of service dictated separately.~Patient seen individually. Discussed the patient with Nursing staff reviewed the chart.~Reviewed interim history and current functioning. Reviewed vital signs,~Labs/ Radiology~and current medications noted below. Continue current treatment with the changes noted in the dictated addendum note Assessment: Vital Signs: Vital Signs Date Time Temp Pulse Resp B/P (MAP) Pulse Ox O2 Delivery O2 Flow Rate FiO2 06/06/18 16:18 98.1 76 20 120/74 (89) 96 Room Air I&O Intake and Output 06/06/18 07:00 Intake Total 960 ml Balance 960 ml Intake Oral 960 ml Current Medications: Meds: Current Medications Acetaminophen (Tylenol) 650 mg PRN Q6HRS PRN PO PAIN / TEMP Last administered on 05/24/18at 11:29; Start 05/13/18 at 02:30 Multi-Ingredient Ointment (Analgesic [place]) 1 vanesa PRN QID PRN TP MUSCLE PAIN; Start 05/13/18 at 02:30 Al Hydroxide/Mg Hydroxide (Mylanta Plus Xs) 15 ml PRN AFTMEALHC PRN PO DYSPEPSIA; Start 05/13/18 at 02:30 Magnesium Hydroxide (Milk Of Magnesia) 2,400 mg PRN QHS PRN PO CONSTIPATION Last administered on 05/18/18at 20:12; Start 05/13/18 at 02:30 Lorazepam (Ativan) 0.25 mg PRN Q6HRS PRN PO ANXIETY / AGITATION Last administered on 06/02/18at 18:06; Start 05/13/18 at 02:45 Lorazepam (Ativan) 1 mg DAILY IM Last administered on 05/18/18at 15:11; Start 05/13/18 at 08:15; Stop 05/18/18 at 17:21; Status DC Haloperidol Lactate (Haldol) 5 mg DAILY IM Last administered on 05/18/18at 15: 07; Start 05/13/18 at 08:15; Stop 05/18/18 at 17:21; Status DC Cyanocobalamin (Vitamin B-12) 1,000 mcg DAILY IM Last administered on at 13:52; Start 05/13/18 at 18:00; Stop 05/17/18 at 17:59; Status DC Cyanocobalamin (Vitamin B-12) 1,000 mcg WEEKLY IM Last administered on at 08:41; Start 05/20/18 at 09:00 Vitamin D (Vitamin D3) 50,000 unit WEEKLY PO ; Start 05/13/18 at 18:30; Stop 05/13/18 at 18:39; Status DC Vitamin D (Vitamin D3) 50,000 unit WEEKLY PO Last administered on 06/04/18at 07: 48; Start 05/14/18 at 09:00 Quetiapine Fumarate (SEROquel) 25 mg DAILY PO Last administered on 05/18/18at 07:50; Start 05/15/18 at 09:00; Stop 05/18/18 at 17:21; Status DC Trazodone HCl (Desyrel) 25 mg QHS PO Last administered on 05/26/18at 20:07; Start 05/17/18 at 21:00; Stop 05/26/18 at 21:00; Status DC Trazodone HCl (Desyrel) 25 mg PRN QHS PRN PO INSOMNIA; Start 05/17/18 at 18:00 Quetiapine Fumarate (SEROquel) 37.5 mg DAILY PO Last administered on 05/28/18at 09:00; Start 05/19/18 at 09:00; Stop 05/29/18 at 18:44; Status DC Sertraline HCl (Zoloft) 50 mg DAILY PO Last administered on 05/26/18at 07:48; Start 05/25/18 at 09:00; Stop 05/26/18 at 18:27; Status DC Olanzapine (ZyPREXA ZYDIS) 5 mg PRN Q2HR PRN PO PSYCHOSIS; Start 05/24/18 at 18:30; Stop 05/24/18 at 18:30; Status DC Olanzapine (ZyPREXA ZYDIS) 2.5 mg PRN Q2HR PRN PO PSYCHOSIS Last administered on 06/06/18at 13:36; Start 05/24/18 at 18:30 Trazodone HCl (Desyrel) 50 mg QHS PO Last administered on 06/06/18at 21:03; Start 05/26/18 at 21:00 Fluvoxamine Maleate (Luvox) 50 mg QHS PO Last administered on 05/30/18at 20:34; Start 05/26/18 at 21:00; Stop 05/31/18 at 16:27; Status DC Lidocaine (Lidoderm) 1 patch DAILY TD Last administered on 06/03/18at 08:38; Start 05/29/18 at 09:00; Stop 06/04/18 at 08:37; Status DC Miscellaneous (Lidoderm Patch Removal) 1 ea QHS MC Last administered on at 21:00; Start 05/28/18 at 21:00 Quetiapine Fumarate (SEROquel) 50 mg DAILY PO Last administered on 06/06/18at 07:42; Start 05/30/18 at 09:00 Fluvoxamine Maleate (Luvox) 75 mg QHS PO Last administered on 06/06/18at 21:03 ; Start 05/31/18 at 21:00 Quetiapine Fumarate (SEROquel) 25 mg 1500 PO Last administered on 06/06/18at 13 :36; Start 06/01/18 at 15:00 Olanzapine (ZyPREXA ZYDIS) 5 mg 1X ONCE PO Last administered on 05/31/18at 19: 33; Start 05/31/18 at 19:30; Stop 05/31/18 at 19:31; Status DC Lidocaine (Lidoderm) 1 patch PRN DAILY PRN TD PAIN; Start 06/04/18 at 08:45 Active Scripts Active Reported Trazodone Hcl 50 Mg Tablet 25 Mg PO PRN QHS PRN Trazodone Hcl 50 Mg Tablet 50 Mg PO HS Fluvoxamine Maleate 50 Mg Tablet 75 Mg PO HS Seroquel (Quetiapine Fumarate) 25 Mg Tablet 25 Mg PO DAILY@1500 Seroquel (Quetiapine Fumarate) 50 Mg Tablet 50 Mg PO DAILY Zyprexa Zydis (Olanzapine) 5 Mg Tab.rapdis 2.5 Mg PO PRN Q2HR PRN Milk Of Magnesia (Magnesium Hydroxide) 2,400 Mg/10 Ml Oral.susp 2,400 Mg PO PRN QHS PRN Maalox Maximum Strength Susp (Mag Hydrox/Al Hydrox/Simeth) 355 Ml Oral.susp 15 Ml PO PRN AFTMEALHC PRN Lorazepam 0.5 Mg Tablet 0.25 Mg PO PRN Q6HRS PRN Lidocaine 1 Each Adh..patch 1 Each TP PRN DAILY PRN Cyanocobalamin Injection (Cyanocobalamin (Vitamin B-12)) 1,000 Mcg/1 Ml Vial 1, 000 Mcg IJ [id number] D3-50 (Cholecalciferol (Vitamin D3)) 50,000 Unit Capsule 50,000 Unit PO WEEKLY Tylenol (Acetaminophen) 325 Mg Tablet 325 Mg PO PRN Q6HRS PRN Remeron (Mirtazapine) 15 Mg Tablet 0.5 Tab PO QHS I have reviewed the current psychotropics carefully including drug interactions. Risk benefit ratio favors no change other than as noted in my dictated progress note. 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
--- NOTE | 2018-06-07 00:37 | NUR ---
Pt located in her room sleeping at shift change. Pt compliant with whole medications with coaxing. Pt stated she was very tired and wanted to go back to sleep.
[2018-06-07 06:34] VITALS: BP 161/99
[2018-06-07] MEDS: QUEtiapine 50 MG TABLET. PO SCH (08:16)
--- NOTE | 2018-06-07 11:15 | NUR ---
Transition Record was faxed to follow-up provider with the following elements: Reason for admission, procedures, tests, principal diagnosis, pending studies, patient instructions, 16/02 contact information for unit, phone number to obtain pending test results, plan for follow-up care, physician follow-up, advanced directive information, and medication list with dose, duration and instructions. This information was included in the following documents: History and physical, lab results, study results, progress notes, social work planning form, DC instruction form, patient visit summary, and medication reconciliation form. Date & time record faxed: 06/07/18 [id number] Record faxed to:Morning side place Record discussed with/ report given to: Leticia
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
--- NOTE | 2018-06-07 19:43 | PN ---
DATE: 06/06/2018 PSYCHIATRIC PROGRESS NOTE This late entry 06/06/2018 covers elements not covered in my initial note. SUBJECTIVE: I met with the patient in the evening. The patient slept 6-1/2 hours previous night. The patient remains confused, was upset around lunchtime due to ____ received Zyprexa x 1 and received her scheduled Seroquel early. She was asking about the [employer] and nursing staff did distract her. REVIEW OF SYSTEMS: No CV, , pulmonary, eye, ENT system symptoms on review. Reliability poor. MENTAL STATUS EXAM: Oriented to herself. Insight, judgment, recent and remote memory, attention, concentration, fund of knowledge poor, consistent with her diagnosis mentioned in my initial note. PLAN: No change from initial note. Possible transition to intermediate on 06/07/2018. MAN Padmini RUFF MD DR: KATARZYNA/bibiana JOB#: [id number] / [id number]
--- NOTE | 2018-06-07 22:54 | PDOC ---
Exam Note: Edgar Note: Please also refer to the separate dictated note~for this date of service dictated separately.~Patient seen individually. Discussed the patient with Nursing staff reviewed the chart.~Reviewed interim history and current functioning. Reviewed vital signs,~Labs/ Radiology~and current medications noted below. Continue current treatment with the changes noted in the dictated addendum note Assessment: Vital Signs: Vital Signs Date Time Temp Pulse Resp B/P (MAP) Pulse Ox O2 Delivery O2 Flow Rate FiO2 06/07/18 06:34 98.0 61 22 161/99 (119) 96 Room Air I&O Intake and Output 06/07/18 07:00 Intake Total 960 ml Balance 960 ml Intake Oral 960 ml # Bowel Movements 1 Current Medications: Meds: Current Medications Acetaminophen (Tylenol) 650 mg PRN Q6HRS PRN PO PAIN / TEMP Last administered on 05/24/18at 11:29; Start 05/13/18 at 02:30; Stop 06/07/18 at 11:39; Status DC Multi-Ingredient Ointment (Analgesic [place]) 1 vanesa PRN QID PRN TP MUSCLE PAIN; Start 05/13/18 at 02:30; Stop 06/07/18 at 11:39; Status DC Al Hydroxide/Mg Hydroxide (Mylanta Plus Xs) 15 ml PRN AFTMEALHC PRN PO DYSPEPSIA; Start 05/13/18 at 02:30; Stop 06/07/18 at 11:39; Status DC Magnesium Hydroxide (Milk Of Magnesia) 2,400 mg PRN QHS PRN PO CONSTIPATION Last administered on 05/18/18at 20:12; Start 05/13/18 at 02:30; Stop 06/07/18 at 11:39; Status DC Lorazepam (Ativan) 0.25 mg PRN Q6HRS PRN PO ANXIETY / AGITATION Last administered on 06/02/18at 18:06; Start 05/13/18 at 02:45; Stop 06/07/18 at 11: 39; Status DC Lorazepam (Ativan) 1 mg DAILY IM Last administered on 05/18/18at 15:11; Start 05/13/18 at 08:15; Stop 05/18/18 at 17:21; Status DC Haloperidol Lactate (Haldol) 5 mg DAILY IM Last administered on 05/18/18at 15: 07; Start 05/13/18 at 08:15; Stop 05/18/18 at 17:21; Status DC Cyanocobalamin (Vitamin B-12) 1,000 mcg DAILY IM Last administered on at 13:52; Start 05/13/18 at 18:00; Stop 05/17/18 at 17:59; Status DC Cyanocobalamin (Vitamin B-12) 1,000 mcg WEEKLY IM Last administered on at 08:41; Start 05/20/18 at 09:00; Stop 06/07/18 at 11:39; Status DC Vitamin D (Vitamin D3) 50,000 unit WEEKLY PO ; Start 05/13/18 at 18:30; Stop 05/13/18 at 18:39; Status DC Vitamin D (Vitamin D3) 50,000 unit WEEKLY PO Last administered on 06/04/18at 07: 48; Start 05/14/18 at 09:00; Stop 06/07/18 at 11:39; Status DC Quetiapine Fumarate (SEROquel) 25 mg DAILY PO Last administered on 05/18/18at 07:50; Start 05/15/18 at 09:00; Stop 05/18/18 at 17:21; Status DC Trazodone HCl (Desyrel) 25 mg QHS PO Last administered on 05/26/18at 20:07; Start 05/17/18 at 21:00; Stop 05/26/18 at 21:00; Status DC Trazodone HCl (Desyrel) 25 mg PRN QHS PRN PO INSOMNIA; Start 05/17/18 at 18:00 ; Stop 06/07/18 at 11:39; Status DC Quetiapine Fumarate (SEROquel) 37.5 mg DAILY PO Last administered on 05/28/18at 09:00; Start 05/19/18 at 09:00; Stop 05/29/18 at 18:44; Status DC Sertraline HCl (Zoloft) 50 mg DAILY PO Last administered on 05/26/18at 07:48; Start 05/25/18 at 09:00; Stop 05/26/18 at 18:27; Status DC Olanzapine (ZyPREXA ZYDIS) 5 mg PRN Q2HR PRN PO PSYCHOSIS; Start 05/24/18 at 18:30; Stop 05/24/18 at 18:30; Status DC Olanzapine (ZyPREXA ZYDIS) 2.5 mg PRN Q2HR PRN PO PSYCHOSIS Last administered on 06/07/18at 10:53; Start 05/24/18 at 18:30; Stop 06/07/18 at 11:39; Status DC Trazodone HCl (Desyrel) 50 mg QHS PO Last administered on 06/06/18at 21:03; Start 05/26/18 at 21:00; Stop 06/07/18 at 11:39; Status DC Fluvoxamine Maleate (Luvox) 50 mg QHS PO Last administered on 05/30/18at 20:34; Start 05/26/18 at 21:00; Stop 05/31/18 at 16:27; Status DC Lidocaine (Lidoderm) 1 patch DAILY TD Last administered on 06/03/18at 08:38; Start 05/29/18 at 09:00; Stop 06/04/18 at 08:37; Status DC Miscellaneous (Lidoderm Patch Removal) 1 ea QHS MC Last administered on at 21:00; Start 05/28/18 at 21:00; Stop 06/07/18 at 11:39; Status DC Quetiapine Fumarate (SEROquel) 50 mg DAILY PO Last administered on 06/07/18at 08:16; Start 05/30/18 at 09:00; Stop 06/07/18 at 11:40; Status DC Fluvoxamine Maleate (Luvox) 75 mg QHS PO Last administered on 06/06/18at 21:03 ; Start 05/31/18 at 21:00; Stop 06/07/18 at 11:40; Status DC Quetiapine Fumarate (SEROquel) 25 mg 1500 PO Last administered on 06/06/18at 13 :36; Start 06/01/18 at 15:00; Stop 06/07/18 at 11:40; Status DC Olanzapine (ZyPREXA ZYDIS) 5 mg 1X ONCE PO Last administered on 05/31/18at 19: 33; Start 05/31/18 at 19:30; Stop 05/31/18 at 19:31; Status DC Lidocaine (Lidoderm) 1 patch PRN DAILY PRN TD PAIN; Start 06/04/18 at 08:45; Stop 06/07/18 at 11:40; Status DC Active Scripts Active Reported Trazodone Hcl 50 Mg Tablet 25 Mg PO PRN QHS PRN Trazodone Hcl 50 Mg Tablet 50 Mg PO HS Fluvoxamine Maleate 50 Mg Tablet 75 Mg PO HS Seroquel (Quetiapine Fumarate) 25 Mg Tablet 25 Mg PO DAILY@1500 Seroquel (Quetiapine Fumarate) 50 Mg Tablet 50 Mg PO DAILY Zyprexa Zydis (Olanzapine) 5 Mg Tab.rapdis 2.5 Mg PO PRN Q2HR PRN Milk Of Magnesia (Magnesium Hydroxide) 2,400 Mg/10 Ml Oral.susp 2,400 Mg PO PRN QHS PRN Maalox Maximum Strength Susp (Mag Hydrox/Al Hydrox/Simeth) 355 Ml Oral.susp 15 Ml PO PRN AFTMEALHC PRN Lorazepam 0.5 Mg Tablet 0.25 Mg PO PRN Q6HRS PRN Lidocaine 1 Each Adh..patch 1 Each TP PRN DAILY PRN Cyanocobalamin Injection (Cyanocobalamin (Vitamin B-12)) 1,000 Mcg/1 Ml Vial 1, 000 Mcg IJ [id number] D3-50 (Cholecalciferol (Vitamin D3)) 50,000 Unit Capsule 50,000 Unit PO WEEKLY Tylenol (Acetaminophen) 325 Mg Tablet 650 Mg PO PRN Q6HRS PRN I have reviewed the current psychotropics carefully including drug interactions. Risk benefit ratio favors no change other than as noted in my dictated progress note. 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
== END 2018-06-07 11:15 | DRG 57 ==
LOC: GEROPSY 01:43
PROVIDERS: ADMIT Psychiatry & Neurology Psychiatry; ATTEND Psychiatry & Neurology Psychiatry
DX: G30.9 Alzheimer's disease, unspecified (principal); F02.81 Dementia in other diseases classified elsewhere, unspecified severity, with behavioral disturbance; F01.51 Vascular dementia, unspecified severity, with behavioral disturbance; F05 Delirium due to known physiological condition; E53.8 Deficiency of other specified B group vitamins; E55.9 Vitamin D deficiency, unspecified; F32.9 Major depressive disorder, single episode, unspecified; F41.9 Anxiety disorder, unspecified; F63.9 Impulse disorder, unspecified; Z79.899 Other long term (current) drug therapy
CPT/HCPCS: 36415; 70450; 73030; 80053; 80061; 81001; 82306; 82607; 83036; 83540; 83550; 83735; 84436; 84443; 84480; 85025; 86592; 87086; 93005; J1630; J2060; J3420